=== PATIENT | female | born 1960 | race Caucasian/White ===

== ENCOUNTER → 2017-05-23 12:19 | Outpatient (CLI) | payer MEDICAID, SELFPAY ==
--- NOTE | 2017-05-23 12:22 | ADU_ITS ---
Reason For Study: Atherosclerosis Right Velocities Left Velocities Ext. Iliac Artery, dist = 138 cm./sec. Ext Iliac Artery, dist = 158 cm./sec. Common Femoral Artery, dist = 86 cm./sec. Common Femoral Artery, dist = 93 cm./sec. Supf Femoral Artery, prox = 75 cm./sec. Lt Prox SFA pre stenosis: 92cm/s, at stenosis: Supf Femoral Artery, mid = 101 cm./sec. 462cm/s, distal to stenosis: 90cm/s. Supf Femoral Artery, dist. = 57 cm./sec. Supf. Femoral Artery, mid = 58 cm./sec. Profunda Femoral Artery = 108 cm./sec. Supf. Femoral Artery, dist = 82 cm./sec. Popliteal Artery, prox. = 32 cm./sec. Profunda Femoral Artery = 186 cm./sec. Popliteal Artery, mid = 36 cm./sec. Popliteal Artery, proximal, = 62 cm./sec. Popliteal Artery, dist = 17 cm./sec. Popliteal Artery, mid = 69 cm./sec. Post. Tibial Artery, prox = 21 cm./sec. Popliteal Artery, distal = 69 cm./sec. Post. Tibial Artery, mid = 11 cm./sec. Post. Tibial Artery, prox = 33 cm./sec. Post. Tibial Artery, dist = 19 cm./sec. Post Tibial Artery, mid = 49 cm./sec. Peroneal Artery, prox = 12 cm./sec. Post Tibial Artery, dist. = 39 cm./sec. Peroneal Artery, mid = 7 cm./sec. Peroneal Artery, prox = 19 cm./sec. Peroneal Artery,dist = 10 cm./sec. Peroneal Artery, mid = 17 cm./sec. Ant. Tibial Artery, prox = 19 cm./sec. Peroneal Artery,dist. = 16 cm./sec. Ant. Tibial Artery, mid = 25 cm./sec. Ant.Tibial Artery, prox = 33 cm./sec. Ant. Tibial Artery, dist = 21 cm./sec. Ant Tibial Artery, mid = 29 cm./sec. Rt DPA: 17cm/s. Ant. Tibial Artery, distal = 33 cm./sec. Lt DPA: 26cm/s. Procedure Exam performed in department. Interpretation Summary 1. Right with no stenosis seen but monophasic flow and decreased psv below mid poplieat artery. 2. Left with severe stenosis in SFA but appears triphasic flow below and through anterior tibial. Ordering Physician: Juma Shannon Referring Physician: Tristan Denis Performed By: Monica Burk RDCS, RVT
--- NOTE | 2017-05-30 11:42 | LEAS ---
Arterial Study - Arterial Study Arterial Study: Patient: Araceli Roach Date of scan 05/23/[address] Juma Shannon Interpretation: Right lower extremity with pulsatile flow at the ankle slightly decreased waveform and but a maintained out through the digits duplex shows biphasic flow both vessels at the ankle with an ALLISON 0.65 the posterior tibial and 0.67 of the dorsalis pedis. With the digit brachial index 0.46 Left lower extremity with pulsatile flow noted at the ankle again with decreased waveform but waveform maintained out through the digit. Duplex again is biphasic flow at the ankle with an ALLISON 0.8 to the posterior tibial 0.70 the dorsalis pedis. And a digit brachial index is 0.56. Impression: 1. Right lower extremity with moderate arterial occlusive disease with an ALLISON 0.67. 2. Left lower extremity with mild arterial occlusive disease with an ALLISON 0.82 3. Bilateral small vessel disease with digit brachial index 0.46 and 0.56 respectively
== END ==
PROVIDERS: Family Provider Family Medicine; PCP Family Medicine; Visit Provider Surgery Vascular Surgery
DX: I70.213 Atherosclerosis of native arteries of extremities with intermittent claudication, bilateral legs (principal); E78.00 Pure hypercholesterolemia, unspecified; E11.9 Type 2 diabetes mellitus without complications
CPT/HCPCS: 93922; 93925

== ENCOUNTER → 2018-04-01 09:56 | Outpatient (CLI) | payer MEDICAID, SELFPAY ==
--- NOTE | 2018-04-01 10:02 | ART_ITS ---
Reason For Study: Bilateral leg pain Procedure A bilateral lower extremity continuous wave Doppler with analog waveform analysis,segmental pressures,and ankle brachial indexes without exercise. Left Segmental Pressures Left brachial= 111mmHg. Left thigh = 106mmHg. Left calf = 75mmHg. Left posterior tibial artery = 87mmHg. Left dorsalis pedis artery = 67mmHg. Left digit = 65 mmHg. The left dorsalis pedis waveforms are biphasic. The left posterior tibial artery waveforms are biphasic. Right Segmental Pressures Right brachial= 96mmHg. Right thigh = 144mmHg. Right calf = 89mmHg. Right posterior tibial artery = 86mmHg. Right dorsalis pedis artery = 82.mmHg. Right digit = 49 mmHg. The right dorsalis pedis waveforms are biphasic. The right posterior tibial artery waveforms are biphasic. Indices The right ankle brachial index by the dorsalis pedis is 0.74. The right ankle brachial index by the posterior tibial artery is 0.77. The right digital-brachial index is 0.44. The left ankle brachial index by the dorsalis pedis is 0.60. The left ankle brachial index by the posterior tibial artery is 0.78. The left digital-brachial index is 0.59. Interpretation Summary Biphasic waveforms are noted at ankle level bilaterally. Resting ankle-brachial indices appear moderately abnormal bilaterally. The right digital-brachial index is moderately diminished. The left digital-brachial index is mildly diminished. Pulse-volume recordings demonstrate diminished waveform amplitudes at ankle and digital levels bilaterally. The findings of this study are consistent with the presence of moderate arterial occlusive disease in the lower extremities bilaterally. Ordering Physician: Yobany Burr Referring Physician: Tristan Denis M.D. Performed By: Lisa Tejada RVT and Student
== END ==
PROVIDERS: Family Provider Family Medicine; PCP Family Medicine; Referring Provider Podiatrist; Visit Provider Podiatrist
DX: E11.9 Type 2 diabetes mellitus without complications (principal); I73.9 Peripheral vascular disease, unspecified; R09.89 Other specified symptoms and signs involving the circulatory and respiratory systems
CPT/HCPCS: 93923

== ENCOUNTER → 2018-04-10 13:50 | Outpatient (CLI) | payer MEDICAID, SELFPAY ==
--- NOTE | 2018-04-10 15:23 | NEURO ---
NCS and/or EMG Patient Report Ordering Doctor: Tristan Denis DATE OF SERVICE: 04/10/18 Araceli Roach is a 57-year-old female presents for electrodiagnostic testing of the upper limbs. She reports complaints of numbness and tingling in both hands. Electrodiagnostic findings: Right median motor nerve demonstrates prolonged distal latency with normal amplitude and adduction velocity. Left median motor nerve demonstrates prolonged distal latency with normal amplitude and conduction velocity. Normal ulnar motor response bilaterally normal median and ulnar F waves. Mildly prolonged right median sensory latency is noted. Needle EMG testing shows no evidence of denervation in any motor unit action potentials are normal amplitude and duration. Electrodiagnostic assessment: This is an abnormal study in the upper limbs 1. Electrodiagnostic findings demonstrate bilateral median mononeuropathy. This is consistent with a mild bilateral carpal tunnel syndrome. If there are any further questions please do not hesitate to contact me
== END ==
PROVIDERS: Family Provider Family Medicine; PCP Family Medicine; Referring Provider Family Medicine; Visit Provider Family Medicine
DX: G56.03 Carpal tunnel syndrome, bilateral upper limbs (principal)
CPT/HCPCS: 95886; 95913

== ENCOUNTER → 2018-05-03 08:49 | Outpatient (CLI) | payer MEDICAID, SELFPAY ==
--- NOTE | 2018-05-03 08:54 | AAVD_ITS ---
Reason For Study: Aorto-iliac atherosclerosis Aorta Measurements Aorta Doppler Measurements Proximal aorta measures1.7 x 1.7cm. in cross- Peak systolic flow velocities within the proximal sectional axis. aorta measure 109 cm/sec. Proximal aorta measures1.6cm. in longitudinal Peak systolic flow velocities within the mid aorta axis. measure 99 cm/sec. Mid aorta measures1.2 x 1.2cm. in cross-sectional Peak systolic flow velocities within the distal axis. aorta measure 369 cm/sec. Mid aorta measures1.2cm. in longitudinal axis. Distal aorta measures1.0 x 1.0cm. in cross- sectional axis. Distal aorta measures1.1cm. in longitudinal axis. Mobile plaque noted distal aorta. Left Iliac Artery Left iliac artery measures .63 cm. in the longitudinal axis. Left iliac artery measures .65 x .61 cm. in the cross-sectional axis. Peak systolic velocity in the left iliac artery measures 159 cm/sec. Right Iliac Artery Right iliac artery measures .63 cm. in the longitudinal axis. Right iliac artery measures .71 x .73 cm. in the cross-sectional axis. Peak systolic velocity in the right iliac artery measures 219 cm/sec. Procedure Aorta IVC Iliac vasculature or bypass grafts [id number]. Exam performed in department. Interpretation Summary 1. distal aorta wiht severe stenosis. Ordering Physician: Juma Shannon Referring Physician: Tristan Denis M.D. Performed By: Lisa Tejada RVT
== END ==
PROVIDERS: Family Provider Family Medicine; PCP Family Medicine; Referring Provider Surgery Vascular Surgery; Visit Provider Surgery Vascular Surgery
DX: I70.0 Atherosclerosis of aorta (principal); I77.1 Stricture of artery
CPT/HCPCS: 93978

== ENCOUNTER 2018-08-13 23:53 | Emergency (ER) | payer MEDICAID, SELFPAY ==
[2018-08-13 23:54] VITALS: BP 136/87; PULSE 70; RESP 18; TEMP 36.3; O2SAT 94; BMI 27.8
[2018-08-14] MEDS: Diphth,Pertuss(Acell),Tet Vac 0.5 ML Vial IM (00:08)
--- NOTE | 2018-08-14 00:22 | ED.VISSUMM ---
- ER Visit Summary Date of Service: 08/14/18 Chief Complaint: Left index finger laceration History of Present Illness: The patient is a 57 F presents to the emergency department with laceration to her left index finger. The patient was in his normal state of health. She states that she was cutting the plastic ring around a Pepsi bottle. The knife slipped and she incised her left index finger. She had immediate pain and bleeding. The patient is on Plavix. She is unsure of her last tetanus. The patient is right-hand dominant. She denies other injury. She is otherwise been in her normal state of health. Physical Examination: Exam is relatively unremarkable. Patient does have a 2 cm full-thickness laceration palmar aspect of the mid phalanges of the left second finger. She is able to flex against opposition. Point discrimination is preserved. Cap refill is less than 2 seconds. Test Results: [] Emergency Department Course and Treatment: The patient's tetanus was updated. The wound was anesthetized. Turn[place]ot was placed. It was explored in a bloodless field. There is no evidence of tenderness laceration. The wound was closed with 6 simple interrupted suture. Patient tolerated this without issue. She was counseled on wound care and reasons to return. She will follow-up in 10 days for suture removal. Treatment Plan: [] Disposition: Discharge Impression: 1. 2 cm left second finger laceration with repair This note was generated with [employer] dictation software. It may contain incorrect words, spelling, and punctuation that were not noted in review of the chart prior to signing ED Disposition - Plan for ED Patient: Instructions: ED Laceration Hand Referrals: Tristan Denis MD [Primary Care Provider] - 10 Day for suture removal
== END 2018-08-14 00:42 | disposition home or self-care (01) ==
LOC: ED 08-14 00:40
PROVIDERS: Emergency Provider Emergency Medicine; Family Provider Family Medicine; PCP Family Medicine
DX: S61.211A Laceration without foreign body of left index finger without damage to nail, initial encounter (principal); W26.0XXA Contact with knife, initial encounter; Y93.9 Activity, unspecified; Y92.9 Unspecified place or not applicable; I25.10 Atherosclerotic heart disease of native coronary artery without angina pectoris; E11.9 Type 2 diabetes mellitus without complications; I10 Essential (primary) hypertension; E78.00 Pure hypercholesterolemia, unspecified; Z79.02 Long term (current) use of antithrombotics/antiplatelets; Z79.84 Long term (current) use of oral hypoglycemic drugs; Z79.4 Long term (current) use of insulin; Z79.899 Other long term (current) drug therapy; Z72.0 Tobacco use
CPT/HCPCS: 12001; 90471; 90715; 99283

== ENCOUNTER → 2018-11-28 10:27 | Outpatient (CLI) | payer OTHER, MEDICAID, SELFPAY ==
[2018-11-28 12:24] LABS: Anion Gap 5 (5-15); BUN 37 mg/dL (7-18); BUN/Creat Ratio 31.1 RATIO (10-20); Calcium,Total 8.7 mg/dL (8.5-10.1); Chloride 107 mmol/L (98-107); Cholesterol 238 mg/dL (200); Creatinine, Serum 1.19 mg/dL (0.55-1.02); EST Glomerular Filtration Rate 49 mL/min (>60); Est Glom Filt Rate - Afr Amer 60 mL/min (>60); Glucose 249 mg/dL (74-106); High Density Lipoprotein 53 mg/dL; Potassium 5.2 mmol/L (3.5-5.1); Sodium Level 140 mmol/L (136-145); Triglycerides 182 mg/dL; Very Low Density Lipoprotein 36 mg/dL (5-40)
== END ==
PROVIDERS: Family Provider Family Medicine; PCP Family Medicine; Referring Provider Family Medicine; Visit Provider Family Medicine
DX: E11.9 Type 2 diabetes mellitus without complications (principal); E78.00 Pure hypercholesterolemia, unspecified
CPT/HCPCS: 36415; 80048; 80061; 83036

== ENCOUNTER 2019-03-07 22:49 | Inpatient (IN) | payer OTHER, SELFPAY ==
--- NOTE | 2019-03-07 00:30 | RAD_ITS ---
HISTORY: COUGH, CONFUSION EXAM: XR Chest 2 Views: COMPARISON: None FINDINGS: # of images incl. paperwork: 2 Lungs are clear. Heart is not enlarged. No acute osseous pathology perceived. Pulmonary vascularity is distinct. No effusions. RAD/Chest PA and Lateral IMPRESSION: Normal. at 0127 Reported and signed by: Abraham Woods MD Electronically Signed: Abraham Woods MD at 1:26 EST Tel , Service support ,
[2019-03-07 22:50] VITALS: BP 133/69; PULSE 64; RESP 16; TEMP 36.9; O2SAT 96; BMI 28.3
--- NOTE | 2019-03-07 23:34 | EKG12_ITS ---
Test Reason : Blood Pressure : / mmHG Vent. Rate : 078 BPM Atrial Rate : 078 BPM P-R Int : 136 ms QRS Dur : 110 ms QT Int : 440 ms P-R-T Axes : 059 050 113 degrees QTc Int : 501 ms AGE AND GENDER SPECIFIC ECG ANALYSIS Normal sinus rhythm Biatrial enlargement Incomplete left bundle branch block ST elevation consider inferior injury or acute infarct Possible lateral ischemia Confirmed by WALTER MENDEZ ([id number]), news assignment editor ILEANA FLORES ([id number]) on 03/11/2019 2:36:30 PM Referred By: LUIS Confirmed By:WALTER MENDEZ
--- NOTE | 2019-03-07 23:37 | ED.DCSUM_ITS ---
History of Present Illness Chief Complaint: Confusion Informant: Patient, Family Onset: Days - 2 Context: - - unk onset Timing: Intermittent Quality: trouble speaking Current Severity: Moderate Maximum Severity: Moderate Worsened by: nothing in particular Relieved by: nothing in particular Associated Symptoms: mild mid-frontal headache Narrative: Family brings patient in for trouble speaking and acting unusual. It is mostly saying unusual things that do not make sense and seems intermittent. Patient lives alone. Daughter states she spoke with her at 5:00 today and she seemed to be fine but tonight she is not. She slept all day yesterday. Patient states her speech has not been right since 2 days ago. Family was with her 3 days ago and they states she was fine and at baseline then. No history of stroke. Patient denies having any weakness or numbness anywhere. She tries to tell me something about her left leg, she is having some pain in it, she points to her thigh, but she has trouble describing it to me and something about having a doctor look at it. I think she is trying to indicate that this is not a new problem but she is having trouble communicating. She is a diabetic and does not remember the last time she checked her blood sugar. - Past Medical History (1) Hyperlipidemia Status: Chronic (2) Type 2 diabetes mellitus Status: Chronic (3) HTN (hypertension) Status: Chronic Past Medical History - Allergies and Home Meds Allergies/Adverse Reactions: Allergies No Known Allergies Allergy (Verified 08/13/18 23:55) Primary Care Physician: Tristan Denis MD [Primary Care Provider] - Smoking Status: Former smoker Review of Systems General: Denies: Chills, Fever, Sweats Eyes: Denies: Visual changes - bilaterally, Diplopia ENT: Denies: Rhinorrhea, Sore throat Cardiovascular: Denies: Chest pain, Palpitations Respiratory: Denies: Dyspnea, Cough, Dyspnea on exertion Gastrointestinal: Denies: Abdominal pain, Nausea, Vomiting, Diarrhea, Melena, Hematochezia Genitourinary: Denies: Dysuria, Hematuria, Frequency Musculoskeletal: Denies: Back pain, Swelling, Extremity Pain Skin: Denies: Rash, Abscess, Wounds Neurological: Reports: Headache, - - confusion. speech problems.. Denies: Weakness, Numbness Physical Exam Vital Signs/Narrative: Vital Signs Temp Pulse Resp BP Pulse Ox 03/07/19 22:50 98.4 F 64 16 133/69 H 96 General: Well nourished, Well developed, No Acute Distress Head: Normocephalic, Atraumatic Eyes: Perrl, EOMI ENT: Moist mucous membranes, No rhinorrhea Neck: Supple, Nontender, No lymphadenopathy, No JVD Cardiovascular: Regular rate, Regular rhythm, No murmurs Respiratory: No distress, CTA bilaterally, Chest nontender Abdomen: Soft, Nontender, Nondistended, Normal bowel sounds Back: Nontender, Normal Inspection. Negative for: CVA tenderness Extremities: Nontender, No edema. Negative for: Calf Tenderness Skin: Normal color, No rash, No Trauma Neurological: Alert, Oriented x3, Cranial nerves II-XII grossly intact, Normal Strength, Normal Sensation, Normal DTR, - - Patient has no dysarthria but seemingly mild a aphasia at times. Difficult to evaluate if true aphasia or disorientation; for instance when asked the month, she is correct that it is February. She states it was just recently Mike, and then says something about having a good New Year's Shelly which has yet to arrive. When asked the year she states 2019 1998. Psychological: Normal affect, Normal Mood Diagnostic/Tx/Re-eval Impressions Chest X-Ray 03/07/19 00:30 IMPRESSION: Normal. at 0127 Reported and signed by: Abraham Woods MD Electronically Signed: Abraham Woods MD at 1:26 EST Tel , Service support , Brain CT 03/08/19 23:33 IMPRESSION: No acute intracranial abnormality. Chronic changes as above. ASPECT 10. Individualized dose optimization techniques were used for this CT. at 0116 Reported and signed by: Abraham Woods MD Electronically Signed: Abraham Woods MD at 1:15 EST Tel , Service support , 03/08/19 23:33 Brain/Head without Contrast [CT] Stat Laboratory Results 03/07/19 03/07/19 03/07/19 23:43 23:45 23:45 WBC 8.3 RBC 4.52 Hgb 13.5 Hct 40.6 MCV 89.8 MCH 29.9 MCHC 33.3 RDW Std Deviation 42.0 RDW Coeff of Jessica 12.8 Plt Count 221 MPV 12.2 H Immature Gran % (Auto) 0.800 Neut % (Auto) 66.4 Lymph % (Auto) 22.6 Elliott % (Auto) 7.4 Eos % (Auto) 2.3 Baso % (Auto) 0.5 Absolute Neuts (auto) 5.5 Absolute Lymphs (auto) 1.87 Nucleated RBC % 0 Sodium 129 L Potassium 4.8 Chloride 91 L Carbon Dioxide 29.0 Anion Gap 9 BUN 50 H Creatinine 1.52 H Estim Creat Clear Calc 32.97 Est GFR (MDRD) Af Amer 45 L Est GFR (MDRD) Non-Af 37 L BUN/Creatinine Ratio 32.9 H Glucose 580 H* Calcium 8.9 Total Bilirubin 0.30 AST 12 L ALT 29 Alkaline Phosphatase 140 H Ammonia Troponin I < 0.015 Total Protein 7.5 Albumin 3.4 Globulin 4.1 Albumin/Globulin Ratio 0.8 L Urine Color Urine Clarity Urine pH Ur Specific [place] Urine Protein Urine Glucose (UA) Urine Ketones Urine Occult Blood Urine Nitrite Urine Bilirubin Urine Urobilinogen Ur Leukocyte Esterase Urine RBC Urine WBC Ur Squamous Epith Cells Urine Bacteria Urine Mucus Urine Opiates Screen Urine Methadone Screen Ur Barbiturates Screen Ur Phencyclidine Scrn Ur Amphetamines Screen U Methamphetamin-MDMA U Benzodiazepines Scrn Urine Cocaine Screen U Cannabinoids Screen Ur Drug Screen Comment Ethyl Alcohol POC Glucose > 500 H* 03/07/19 03/07/19 03/08/19 23:45 23:45 01:00 WBC RBC Hgb Hct MCV MCH MCHC RDW Std Deviation RDW Coeff of Jessica Plt Count MPV Immature Gran % (Auto) Neut % (Auto) Lymph % (Auto) Elliott % (Auto) Eos % (Auto) Baso % (Auto) Absolute Neuts (auto) Absolute Lymphs (auto) Nucleated RBC % Sodium Potassium Chloride Carbon Dioxide Anion Gap BUN Creatinine Estim Creat Clear Calc Est GFR (MDRD) Af Amer Est GFR (MDRD) Non-Af BUN/Creatinine Ratio Glucose Calcium Total Bilirubin AST ALT Alkaline Phosphatase Ammonia 12.0 Troponin I Total Protein Albumin Globulin Albumin/Globulin Ratio Urine Color Straw Urine Clarity Sl. Cloudy Urine pH 6.0 Ur Specific [place] 1.010 Urine Protein Negative Urine Glucose (UA) 1000 H Urine Ketones Negative Urine Occult Blood Negative Urine Nitrite Negative Urine Bilirubin Negative Urine Urobilinogen Normal Ur Leukocyte Esterase Negative Urine RBC 0 SEEN Urine WBC 0-5 SEEN Ur Squamous Epith Cells 0-5 SEEN Urine Bacteria RARE Urine Mucus 0 SEEN Urine Opiates Screen Urine Methadone Screen Ur Barbiturates Screen Ur Phencyclidine Scrn Ur Amphetamines Screen U Methamphetamin-MDMA U Benzodiazepines Scrn Urine Cocaine Screen U Cannabinoids Screen Ur Drug Screen Comment Ethyl Alcohol < 3.0 POC Glucose 03/08/19 03/08/19 01:00 01:08 WBC RBC Hgb Hct MCV MCH MCHC RDW Std Deviation RDW Coeff of Jessica Plt Count MPV Immature Gran % (Auto) Neut % (Auto) Lymph % (Auto) Elliott % (Auto) Eos % (Auto) Baso % (Auto) Absolute Neuts (auto) Absolute Lymphs (auto) Nucleated RBC % Sodium Potassium Chloride Carbon Dioxide Anion Gap BUN Creatinine Estim Creat Clear Calc Est GFR (MDRD) Af Amer Est GFR (MDRD) Non-Af BUN/Creatinine Ratio Glucose Calcium Total Bilirubin AST ALT Alkaline Phosphatase Ammonia Troponin I Total Protein Albumin Globulin Albumin/Globulin Ratio Urine Color Urine Clarity Urine pH Ur Specific [place] Urine Protein Urine Glucose (UA) Urine Ketones Urine Occult Blood Urine Nitrite Urine Bilirubin Urine Urobilinogen Ur Leukocyte Esterase Urine RBC Urine WBC Ur Squamous Epith Cells Urine Bacteria Urine Mucus Urine Opiates Screen NEGATIVE Urine Methadone Screen NEGATIVE Ur Barbiturates Screen NEGATIVE Ur Phencyclidine Scrn NEGATIVE Ur Amphetamines Screen NEGATIVE U Methamphetamin-MDMA NEGATIVE U Benzodiazepines Scrn NEGATIVE Urine Cocaine Screen NEGATIVE U Cannabinoids Screen NEGATIVE Ur Drug Screen Comment Ethyl Alcohol POC Glucose 434 H - Rhythm Strip Rhythm Strip: Sinus Rhythm Rate: 78 Ectopy: None - EKG Initial EKG Interpretation: Sinus Rhythm, - - Incomplete left bundle branch block. ST/J- point elevation in lead III only. Very possibly less than 1 mm in aVF, but none in lead II. There are T wave inversions without significant ST depression laterally in leads I and aVL. Very slight [address]/J-point elevations in V1-V2. Prior: No Prior - Medical Decision Making Her EKG is concerning, but I suspect the J-point elevations and the ST segments adjoining them are elevated in relation to her incomplete left bundle branch block. She does not have any thoracic symptoms, and I do not think this is indicative of a STEMI or need for any acute intervention. Furthermore, her troponin returned negative. Her fingerstick blood sugar is over 500. It returned at 580 on the blood work. She was given IV fluids and some insulin. Blood sugar trending down around 400 on recheck, the rest of the work-up is unremarkable except for dehydration and glycosuria, likely due to hyperglycemia that has been present for over a day or 2. The patient still is having speech and memory issues. The CT head is negative, if she was having any type of relatively acute ischemic process there, it may not show on CT. Therefore plan is to admit her to the hospital for further treatment and evaluation, at least until her symptoms resolve. ED Disposition - Plan for ED Patient: Disposition: Acute Care Hospital [facility] Diagnosis: Hyperglycemia due to type 2 diabetes mellitus, Altered mental status, ADAN (acute kidney injury), Abnormal EKG Referrals: Tristan Denis MD [Primary Care Provider] -
[2019-03-07 23:51] LABS: Bedside Glucose > 500 mg/dL (70-110)
[2019-03-07 23:53] LABS: Absolute Lymphocyte Count 1.87 X10^3/uL (0.83-4.51); Absolute Neutrophil Count 5.5 X10^3/uL (2.0-7.7); Basophil# 0.04 X10^3/uL; Basophil% 0.5 % (0-1); Eosinophil# 0.19 X10^3/uL; Eosinophils% 2.3 % (0-5); Hematocrit 40.6 % (37-47); Hemoglobin 13.5 g/dL (12.0-15.0); Lymphocyte # 1.87 X10^3/ul (4.0); Lymphocyte % 22.6 % (19-41); Mean Corp Hgb Conc 33.3 g/dL (32-36); Mean Corpuscular Hgb 29.9 pg (27.0-32.0); Mean Corpuscular Volume 89.8 fL (81-99); Mean Platelet Vol. 12.2 fl (6.2-12.0); Monocyte# 0.61 X10^3/uL; Monocyte% 7.4 % (0-10); NRBC Flagged by Analyzer 0 % (0-5); Neutrophil # 5.49 X10^3/uL (2.7-7.7); Neutrophil % 66.4 % (47-70); Platelet Count 221 K/mm3 (150-450); RBC Distribution Width CV 12.8 % (11.6-14.6); Red Blood Count 4.52 M/mm3 (4.2-5.4); White Blood Count 8.3 K/mm3 (4.4-11.0)
[2019-03-08] VITALS (14 sets, daily range): BP systolic 100–144; BP diastolic 55–80; PULSE 55–89; RESP 12–20; TEMP 36.6–36.8; O2SAT 91–99; BMI 28.0
[2019-03-08] MEDS: Insulin Lispro 100 UNIT/ML INSULN.PEN 12 UNIT SC (00:08)
[2019-03-08] MEDS: 0.9% Normal Saline 1,000 ML 999 ML IV ×2 (00:08→02:36)
[2019-03-08 00:14] LABS: ALB/GLOB Ratio 0.8 RATIO (0.9-2.4); AST(SGOT) 12 U/L (15-37); Alanine Aminotransfer ALT/SGPT 29 U/L (13-56); Albumin, Serum 3.4 g/dL (3.2-5.0); Alkaline Phosphatase 140 U/L (45-117); Anion Gap 9 (5-15); BUN 50 mg/dL (7-18); BUN/Creat Ratio 32.9 RATIO (10-20); Calcium,Total 8.9 mg/dL (8.5-10.1); Chloride 91 mmol/L (98-107); Creatinine, Serum 1.52 mg/dL (0.55-1.02); EST Glomerular Filtration Rate 37 mL/min (>60); Est Glom Filt Rate - Afr Amer 45 mL/min (>60); Estimated Creatinine Clearance 32.97 ml/min; Globulin 4.1 g/dL (2.2-4.2); Glucose 580 mg/dL (74-106); Potassium 4.8 mmol/L (3.5-5.1); Protein, Total 7.5 g/dL (6.4-8.2); Sodium Level 129 mmol/L (136-145)
--- NOTE | 2019-03-08 00:15 | ED.RN ---
LAB CALLED WITH SERUM BLOOD SUGAR 580.
[2019-03-08 00:21] LABS: Alcohol, Blood (Medical)-Serum < 3.0 mg/dL
[2019-03-08 01:05] LABS: Color, Urine Straw (Yellow); Glucose, Dipstick 1000 mg/dl (Normal); Ketone-Dipstick Negative (Negative); Leukocyte Esterase-Dipstick Negative /ul (Negative); Mucous, Urine 0 SEEN /hpf (<or=2+); Nitrite-Dipstick Negative (Negative); Occult Blood-Urine Negative /ul (Negative); Protein-Dipstick Negative (Negative); Red Blood Cells-Urine 0 SEEN /hpf (0-5); Urine Bilirubin Dipstick Negative (Negative); Urine Clarity Sl. Cloudy (Clear); Urine Urobilinogen Normal (Normal)
[2019-03-08 01:12] LABS: Bacteria RARE /hpf (None Seen); Squamous Epithelial Cells - UA 0-5 SEEN /hpf (5-10); White Blood Cells 0-5 SEEN /hpf (0-5)
[2019-03-08 01:16] LABS: Bedside Glucose 434 mg/dL (70-110)
[2019-03-08 01:27] LABS: Amphetamine Urine VISTA NEGATIVE (<1000 ng/mL); Barbiturate Urine VISTA NEGATIVE (< 200 ng/mL); Benzodiazepine Urine VISTA NEGATIVE (< 200 ng/mL); Cocaine Urine VISTA NEGATIVE (< 300 ng/mL); Ecstacy Urine VISTA NEGATIVE (< 500 ng/mL); Methadone Urine VISTA NEGATIVE (< 300 ng/mL); PCP Urine VISTA NEGATIVE (< 25 ng/mL); THC Urine VISTA NEGATIVE (< 50 ng/mL); Vista UDS pH Range 6
--- NOTE | 2019-03-08 02:47 | HP.PCM_ITS ---
Problem List (1) Dysarthria Status: Acute (2) Peripheral vascular disease Status: Chronic (3) Hyperlipidemia Status: Chronic (4) Type 2 diabetes mellitus Status: Chronic (5) HTN (hypertension) Status: Chronic (6) Hyperglycemia due to type 2 diabetes mellitus Status: Acute (7) Altered mental status Status: Acute (8) ADAN (acute kidney injury) Status: Acute (9) Abnormal EKG Status: Acute History of Present Illness Date of Admission: 03/08/19 Chief Complaint: Confusion, slurred speech. The patient is a 58 year old F female patient with past medical history as mentioned above presented to the emergency room because of confusion and slurred speech. When I interviewed the patient, she was alert and oriented x3. Tawnya burnett's family brought her because of trouble speaking and acting unusual. Patient mentioned that she has been not feeling well over the last couple of days, slept all day yesterday and mentioned that her speech has not been right for the last couple of days. Her son was at the bedside and he thinks that now, she is back to her normal speech. She denied blurred vision, facial numbness or tingling. She denied arm or leg weakness. She denied chest pain or shortness of breath. She denied dizziness or lightheadedness. She history of type 2 diabetes mellitus which is apparently uncontrolled, hemoglobin A1c was 11% on November,. Patient admitted that sometimes she does not take her insulin and she has been noncompliant. She had a history of hypertension which seemed to be under control with lisinopril. She will history of peripheral vascular disease, underwent procedure on her right lower extremity by Dr. Shannon which patient is not sure about but was not a stent and she has been on Plavix. In the emergency department, her vital signs were stable. When I saw the patient, her NIH stroke scale was 0. She was alert and oriented x3. Routine blood work was remarkable for sodium of 129, BUN of 50, creatinine is 1.52. Blood glucose was 580. There was no evidence of diabetic ketoacidosis. LFT was unremarkable. Ammonia level was normal. EKG revealed normal sinus rhythm, inverted T wave in lead I, minimal ST elevation in lead III which is only in 1 week, inverted T wave in lead aVL, incomplete LBBB, no previous EKG to compare. Chest x-ray showed no acute findings. CT scan brain showed no acute infarct or hemorrhage. Urinalysis showed no evidence of infection. Urine drug screen was negative and blood alcohol level was less than 3. She is being admitted for slurred speech/dysarthria with transient confusion, hyperglycemia with uncontrolled type 2 diabetes mellitus, acute kidney injury and abnormal EKG. Past Medical History Past Medical History (Chronic Problems): Chronic Problems Peripheral vascular disease (Chronic) Hyperlipidemia (Chronic) Type 2 diabetes mellitus (Chronic) HTN (hypertension) (Chronic) Allergies No Known Allergies Allergy (Verified 08/13/18 23:55) Home Medications: Ambulatory Orders Medication Instructions Recorded Clopidogrel Bisulfate [Clopidogrel] 75 mg PO DAILY 08/14/18 Dulaglutide [Trulicity] 1.5 mg IM QWEEK 08/14/18 Insulin Glargine,Hum.rec.anlog 50 unit SC BID 08/14/18 [Basaglar Kwikpen U-100] Lisinopril [Zestril] 40 mg PO DAILY 08/14/18 Metformin HCl 1,000 mg PO BID 08/14/18 Simvastatin 40 mg PO QHS 08/14/18 Surgical History: no surgical history Psychiatric History: No pertinent psych hx Lives: Alone Smoking Status: Former smoker Alcohol: None Drugs: None - *Family History Maternal History Items: No pertinent history Paternal History Items: No pertinent history Review of Systems Constitutional: Denies: Anorexia, Chills, Fever, Weakness Eyes: Denies: Blurred vision, Double vision, Drainage, Redness HEENT: Denies: Difficulty Hearing, Ear Pain, Eye Pain, Nasal Congestion, Sore Throat Cardiovascular: Denies: Chest Pain, Chest Pressure, Chest Tightness, Heaviness, Light Headedness, Palpitations, Syncope Respiratory: Denies: Cough, Pleuritic Pain, Shortness of Breath, Sputum production, Wheezing Gastrointestinal: Denies: Abdominal Pain, Constipation, Diarrhea, Nausea, Vomiting Genitourinary: Denies: Dysuria, Frequency, Hematuria Musculoskeletal: Denies: Arm Pain, Back Pain, Foot Pain Skin: Denies: Dryness, Rash Neurological: Reports: Change in Speech, Slurred speech, Confusion. Denies: Balance problems, Blurred vision, Double vision, Focal weakness, Headaches, Numbness, Tingling Psychiatric: Denies: Anxiety, Depression Endocrine: Denies: Change in Body Habitus, Polydipsia, Polyuria VTE Information - Inpt Only VTE Present on Admission: No VTE Mechan Device Prophylaxis: None VTE Pharm Prophylaxis ordered?: Yes Patient Problems: Active and Suspected Problems Dysarthria (Acute) Hyperglycemia due to type 2 diabetes mellitus (Acute) Altered mental status (Acute) ADAN (acute kidney injury) (Acute) Abnormal EKG (Acute) - Physical Exam Vitals/I&O's: Vital Signs Temp Pulse Resp BP Pulse Ox 98.4 F 85 16 137/64 H 96 03/07/19 22:50 03/08/19 01:04 03/08/19 01:04 03/08/19 01:04 03/08/19 01:04 Oxygen Delivery Method Room Air Weight: 159 lb 13.362 oz Body Mass Index (BMI) 28.3 Finger Stick Blood Glucose 434 Intake and Output for Last 24 Hours 03/06/19 03/07/19 03/08/19 23:59 23:59 23:59 Intake Total 1000 / 1000 Balance 1000 / 1000 General: Alert, Oriented x3, Cooperative, No apparent distress HEENT: Atraumatic, PERRLA, EOMI, Normocephalic Oral: Moist Mucosa, No Gingival or Mucosal Lesions/ Ulcerations Neck: Supple, No JVD, Negative Carotid Bruits, Trachea Midline, Thyroid Normal Size and Texture Lungs: Clear to auscultation, Normal air movement, No rhonchi, No wheeze, No rales Cardiovascular: Regular rate, Regular Rhythm, Normal S1, Normal S2, No murmurs, PMI Normal Abdomen: Bowel Sounds Present, Soft, Non Tender, Non-Distended, No Hepato- splenomegaly Extremities: No clubbing, No cyanosis, No edema Skin: No rashes, No breakdown Musculoskeletal: No Tenderness to Palpation of Joints or Extremities Lymphatic: No Cervical, Supraclavicular, or Inguinal Adenopathy Neurological: Cranial nerves II-XII grossly intact, Motor Exam 5/5 strength throughout Psych/Mental Status: Normal Affect, Appropriate, Alert and oriented to time, place, person, mood and affect Laboratory Results 03/07/19 23:43: POC Glucose > 500 H* 03/07/19 23:45: WBC 8.3, RBC 4.52, Hgb 13.5, Hct 40.6, MCV 89.8, MCH 29.9, MCHC 33.3, RDW Std Deviation 42.0, RDW Coeff of Jessica 12.8, Plt Count 221, MPV 12.2 H, Immature Gran % (Auto) 0.800, Neut % (Auto) 66.4, Lymph % (Auto) 22.6, Dane % (Auto) 7.4, Eos % (Auto) 2.3, Baso % (Auto) 0.5, Absolute Neuts (auto) 5.5, Absolute Lymphs (auto) 1.87, Nucleated RBC % 0 03/07/19 23:45: Sodium 129 L, Potassium 4.8, Chloride 91 L, Carbon Dioxide 29.0, Anion Gap 9, BUN 50 H, Creatinine 1.52 H, Estim Creat Clear Calc 32.97, Est GFR (MDRD) Af Amer 45 L, Est GFR (MDRD) Non-Af 37 L, BUN/Creatinine Ratio 32.9 H, Glucose 580 H*, Calcium 8.9, Total Bilirubin 0.30, AST 12 L, ALT 29, Alkaline Phosphatase 140 H, Troponin I < 0.015, Total Protein 7.5, Albumin 3.4, Globulin 4.1, Albumin/Globulin Ratio 0.8 L 03/07/19 23:45: Ethyl Alcohol < 3.0 03/07/19 23:45: Ammonia 12.0 03/08/19 01:00: Urine Color Straw, Urine Clarity Sl. Cloudy, Urine pH 6.0, Ur Specific Perrin 1.010, Urine Protein Negative, Urine Glucose (UA) 1000 H, Urine Ketones Negative, Urine Occult Blood Negative, Urine Nitrite Negative, Urine Bilirubin Negative, Urine Urobilinogen Normal, Ur Leukocyte Esterase Negative, Urine RBC 0 SEEN, Urine WBC 0-5 SEEN, Ur Squamous Epith Cells 0-5 SEEN, Urine Bacteria RARE, Urine Mucus 0 SEEN 03/08/19 01:00: Urine Opiates Screen NEGATIVE, Urine Methadone Screen NEGATIVE, Ur Barbiturates Screen NEGATIVE, Ur Phencyclidine Scrn NEGATIVE, Ur Amphetamines Screen NEGATIVE, U Methamphetamin-MDMA NEGATIVE, U Benzodiazepines Scrn NEGATIVE, Urine Cocaine Screen NEGATIVE, U Cannabinoids Screen NEGATIVE, Ur Drug Screen Comment 03/08/19 01:08: POC Glucose 434 H Clinical Impression(s) from Imaging Studies Chest X-Ray 03/07/19 00:30 IMPRESSION: Normal. at 0127 Reported and signed by: Abraham Woods MD Electronically Signed: Abraham Woods MD at 1:26 EST Tel , Service support , Brain CT 03/08/19 23:33 IMPRESSION: No acute intracranial abnormality. Chronic changes as above. ASPECT 10. Individualized dose optimization techniques were used for this CT. at 0116 Reported and signed by: Abraham Woods MD Electronically Signed: Abraham Woods MD at 1:15 EST Tel , Service support , Current Medications Sodium Chloride () 1,000 mls @ 999 mls/hr IV .Q1H1M ONE Stop: 03/08/19 03:17 Last Admin: 03/08/19 02:36 Dose: 999 mls/hr Documented by: Assessment/Plan All Active Problems Dysarthria (Acute) Hyperglycemia due to type 2 diabetes mellitus (Acute) Altered mental status (Acute) ADAN (acute kidney injury) (Acute) Abnormal EKG (Acute) This is a 58 years old female patient presented to the emergency room because of slurred speech and confusion, found to have hypoglycemia with blood sugar of 580 mg/dL without evidence of DKA, acute kidney injury, hyponatremia as well as abnormal EKG. #1 slurred speech/dysarthria/transient confusion: At this time, symptoms improved. Hyperglycemia can cause very dry mouth which may cause difficulty articulating her tongue. It has associated confusion. CT scan brain showed no acute findings. No focal deficit on physical exam. Plan: Admit to PCU, cardiac monitoring, NIH stroke scale, continue Plavix and statins, MRI brain without contrast, IV fluids, Tylenol PRN, PT OT evaluation and treatment. If the MRI came back positive for stroke, we will need to do full stroke work-up. #2 acute kidney injury/hyponatremia: Secondary to above. Sodium is 129 likely because of pseudohyponatremia secondary to hyperglycemia. Corrected sodium for glucose is 137. Plan: IV fluids, input output chart, repeat BMP tomorrow morning. #3 hyperglycemia/uncontrolled type 2 diabetes mellitus: Patient is noncompliant, hemoglobin A1c was 11% on November,. She has been missing insulin doses. Admission glucose was 580, received 12 units of insulin in the ED. Sugar came down to 434. No evidence of DKA. Plan: ADA diet, Accu-Cheks every 4 hours, IV fluids, insulin sliding scale, continue Basaglar insulin twice daily, hold metformin and Trulicity. #4 abnormal EKG: She denied any chest pain or shortness of breath. EKG revealed normal sinus rhythm, inverted T waves in leads I and aVL, minimal ST elevation in lead III, incomplete LBBB. No prior history of CAD. Troponin is negative. Plan: Cardiac monitoring, serial cardiac enzymes, repeat EKG tomorrow morning, 2D echocardiogram, obtain old EKG from PCPs office. #5 hypertension: Blood pressure stable, continue lisinopril. #6 peripheral vascular disease: Status post intervention, not clear what type of intervention, has been following up with Dr. Shannon, plan to continue Plavix. #7 hyperlipidemia: Continue statins. #8 DVT prophylaxis: Subcu heparin. This note was generated with [employer] dictation software. It may contain incorrect words, spelling, and punctuation that were not noted in checking the note before signing. Code Visit Inpatient E&M: 84889 Init Hosp L3
--- NOTE | 2019-03-08 02:52 | MRI_ITS ---
We are attempting to reach an attending provider to discuss findings. An addendum with communication details will be sent when the communication is complete. STUDY: MRI BRAIN WITHOUT CONTRAST REASON FOR EXAM: Female, 58 years old. dysarthria, slurred speech, transient confusion TECHNIQUE: Standardized multiplanar fat and water weighted pulse sequences were obtained. COMPARISON: CT of the brain March 08, 2019 FINDINGS: Mild atrophy and moderate periventricular white matter ischemic changes.. There are multiple tiny foci of restricted diffusion in the left frontal and parietal lobes in distribution of middle cerebral artery consistent with acute ischemic changes. Chronic ischemic changes in the olivia Normal bilateral basal ganglia. Normal thalami. There is no extra-axial fluid accumulation. Normal flow voids within the major intracranial circulation suggesting patency by spin echo criteria. Empty sella sella deformity. Normal, infundibular stalk, optic chiasm and hypothalamus. Normal tectal plate and pineal gland. Normal midbrain, and medulla. Normal cerebellum. Normal basal cisterns. Normal bilateral temporal bones. Normal bilateral internal auditory canals. Post surgical changes of the orbits.. There is mild mucosal thickening of the maxillary ethmoid and sphenoid sinuses.. Normal calvarium and skull base. Normal visualized soft tissue structures. Normal visualized upper cervical spine. MRI/Brain without Contrast IMPRESSION: Moderate periventricular white matter ischemic changes. Tiny foci of acute ischemic changes in the left frontal and parietal lobes. Chronic ischemic changes in the olivia Electronically Signed: Maldonado Enciso MD at 16:35 EST , Service support ,
--- NOTE | 2019-03-08 02:52 | ECHOD_ITS ---
Reason For Study: Abn. EKG Procedure This was a 2D Doppler, Color Flow transthoracic echocardiogram. Exam performed portable in patient room. Left Ventricle Mild concentric left ventricular hypertrophy. Moderately dilated left ventricle. The estimated ejection fraction is 30 %. Septal motion consistent with IVCD. Stage 1 diastolic dysfunction. There is moderate to severe global hypokinesis of the left ventricle. Infero-Basal: Akinetic. Right Ventricle Normal size and thickness. Normal systolic function. Atria Normal left atrium. Normal right atrium. Normal atrial septum. Mitral Valve The mitral valve is structurally normal. No prolapse or stenosis seen. Trivial mitral valve insufficiency. Tricuspid Valve Normal tricuspid valve. Trivial tricuspid valve insufficiency. Right ventricular systolic pressure estimated to be 27 mmHg. Aortic Valve Normal aortic valve. Trisinus/trileaflet aortic valve. Pulmonic Valve Normal pulmonic valve. Great Vessels Normal aortic root. Normal arch. Normal inferior vena cava. Inferior vena cava collapse with sniff. Pericardium/Pleural No pericardial effusion. MMode/2D Measurements & Calculations LVIDd: 5.7 cm IVSd: 1.8 cm Ao root diam: 2.9 cm LVIDs: 4.9 cm LVPWd: 0.84 cm RVDd: 3.0 cm FS: 14.6 % LAV(MOD-bp): 40.6 ml LA A4 area: 16.0 cm2 LA dimension(2D): 3.9 cm LAV(MOD-bp) Indexed: 23.2 ml/m2 LAV(MOD-sp2): 35.3 ml LAV(MOD-sp4): 33.0 ml RA A4 area: 12.2 cm2 Doppler Measurements & Calculations MV E max michael: 67.6 cm/sec Lat Peak E' Michael: 3.7 cm/sec Med Peak E' Michael: 3.4 cm/sec MV A max michael: 102.0 cm/sec E/E' lat: 18.4 E/E' med: 20.1 MV E/A: 0.66 Ao V2 max: 140.9 cm/sec LV V1 max: 91.7 cm/sec PA V2 max: 110.6 cm/sec Ao max P.9 mmHg LV V1 max P.4 mmHg TR max michael: 234.8 cm/sec TR max P.1 mmHg Interpretation Summary Moderately dilated left ventricle. The estimated ejection fraction is 30 %. Stage 1 diastolic dysfunction. There is moderate to severe global hypokinesis of the left ventricle. Trivial mitral valve insufficiency. Trivial tricuspid valve insufficiency. Right ventricular systolic pressure estimated to be 27 mmHg. There is no comparison study available. Ordering Physician: Bright Arriaga Referring Physician: Tristan Denis M.D. Performed By: Nya Romano RDCS
[2019-03-08] MEDS: 0.9% Normal Saline 1,000 ML 125 ML IV ×3 (04:02→21:42)
--- NOTE | 2019-03-08 05:55 | EKG12_ITS ---
Test Reason : MORNING EKG Blood Pressure : / mmHG Vent. Rate : 083 BPM Atrial Rate : 083 BPM P-R Int : 144 ms QRS Dur : 114 ms QT Int : 416 ms P-R-T Axes : -09 071 118 degrees QTc Int : 488 ms AGE AND GENDER SPECIFIC ECG ANALYSIS Normal sinus rhythm Incomplete left bundle branch block Nonspecific ST/T wave Abnormality Prolonged QT Abnormal ECG Confirmed by MARITO LASSITER, DAKOTAH ([id number]), advertising editor ANA FREED ([id number]) on 03/13/2019 11:48:26 AM Referred By: DENNYS Confirmed By:DAKOTAH DEVI MD
[2019-03-08] MEDS: Heparin Injection (Vial) 5,000 UNIT/ML VIAL 5000 UNIT SC ×3 (06:19→21:02)
[2019-03-08] MEDS: Insulin Lispro 100 UNIT/ML INSULN.PEN SC ×5 (06:19→21:01)
[2019-03-08] MEDS: Acetaminophen 325 MG Tablet 650 MG PO (06:19)
[2019-03-08 07:05] LABS: Bedside Glucose 154 mg/dL (70-110)
--- NOTE | 2019-03-08 08:12 | PCM.PN.BLA ---
Progress Note Patient was seen and examined. Still has dysarthria. Her vitals are stable. Repeat Blood work in the process; lipid profile is uncontrolled MRI of the brain is pending 2D echo showed EF 30%, stage I diastolic dysfunction, moderate to severe global hypokinesis of the left ventricle Cardiology consulted Cardiac cath planned for Sunday On aspirin, Plavix, carvedilol, statin Increase statin to 80 mg p.o. daily STROKE Vital Signs/Narrative: Vital Signs Temp Pulse Resp BP Pulse Ox 03/08/19 07:50 91 03/08/19 07:25 98.3 F 55 L 14 111/55 L 99 03/08/19 07:01 82 03/08/19 06:26 98.3 F 83 17 134/66 H 96
[2019-03-08] MEDS: Glucerna Shake 120 ML LIQUID PO (09:04)
[2019-03-08] MEDS: Clopidogrel Bisulfate 75 MG Tablet PO (09:05)
[2019-03-08 09:11] LABS: Bedside Glucose 209 mg/dL (70-110)
--- NOTE | 2019-03-08 11:51 | PCM.CONS.C ---
Problem List (1) Peripheral vascular disease Status: Chronic (2) Hyperlipidemia Status: Chronic (3) Type 2 diabetes mellitus Status: Chronic (4) HTN (hypertension) Status: Chronic Reason for Consult Date of Consultation: 03/08/19 Reason for Consultation: LV dysfunction History of Present Illness: The patient is a 58 year old F With hypertension, peripheral vascular disease, statusy post Ultrasound evaluation of right lower extremity by Dr. Shannon in the recent past,Diabetes which is poorly controlled, unknown cholesterol, no previous known cardiac history.It is unclear whether the patient had angioplasty of her right lower extremity or not. I cannot locate any peripheral vascular angioplasty results.She had been on aspirin and Plavix in the past, but had significant bleeding in her arms and her Plavix was discontinued.Patient is a previous smoker of approximately 60 pack years, quit about 10 years ago. The patient was in normal health up until the last day or so when she developed progressively worsening fatigue, confusion, dysarthria, and sought medical attention [facility] ER. In the emergency room she was found to have a blood sugar of 580, and elevated BUN and creatinine as well. She was somewhat confused underwent a CAT scan which was negative for acute bleed. Patient was treated medically with IV fluids and admitted to the floor. Upon further history the patient states that she has had no exertional anginal symptoms but has had progressively worsening fatigue, shortness of breath and dyspnea on exertion over the last several months. It is uncertain whether she has been compliant with her antihypertensive medication of lisinopril. She reports that she is poorly compliant with her insulin and her hemoglobin A1c was 11%. As part of her cardiac work-up she underwent an EKG which showed normal sinus rhythm, incomplete left bundle branch block, and J-point elevation inferiorly and T wave inversion anteriorly in leads I and aVL. This led to a 2D echo with Doppler which was performed this morningWhich demonstrated moderate to severe global LV dysfunction with specific inferior posterior akinesis with an overall ejection fraction approximately 30%. We were unable to quantitate RVSP. Patient states that she has had a viral-like illness over the last week or so, but is never had a stress test or a heart catheterization.Her troponins are negative x3. The vascular ultrasound demonstrated possible significant distal aortic stenosis, with nonobstructive bilateral lower extremity occlusive disease, left greater than right by exercise PVRs[] Past Medical History Allergies/Adverse Reactions: Allergies No Known Allergies Allergy (Verified 08/13/18 23:55) Home Medications: Ambulatory Orders Medication Instructions Recorded Clopidogrel Bisulfate [Clopidogrel] 75 mg PO DAILY 08/14/18 Dulaglutide [Trulicity] 1.5 mg IM QWEEK 08/14/18 Insulin Glargine,Hum.rec.anlog 42 unit SC BID 08/14/18 [Basaglar Kwikpen U-100] Lisinopril [Zestril] 10 mg PO DAILY 08/14/18 Metformin HCl 1,000 mg PO BID 08/14/18 Simvastatin 40 mg PO QHS 08/14/18 Cilostazol 100 mg PO BID 03/08/19 Past Medical History (Chronic Problems): Chronic Problems Peripheral vascular disease (Chronic) Hyperlipidemia (Chronic) Type 2 diabetes mellitus (Chronic) HTN (hypertension) (Chronic) Surgical History: no surgical history Psychiatric History: No pertinent psych hx - *Family History Maternal History Items: No pertinent history Paternal History Items: No pertinent history Lives: Alone Smoking Status: Former smoker Alcohol: None Drugs: None Review of Systems - Review of Systems General: Reports: Fatigue. Denies: Fever, Night Sweats Cardiovascular: Reports: Shortness of Breath, Shortness of Breath with Exertion. Denies: Chest Discomfort, Orthopnea, PND, Peripheral Edema, Palpitations, Lightheadedness, Dizziness, Near Syncope, Syncope Respiratory: Denies: Cough, Sputum Production, Hemoptysis Gastrointestinal: Denies: Hematemesis, Hematochezia, Melena Genitourinary: Denies: Dysuria, Hematuria Skin: Denies: Rash Subjectve: Patient resting comfortably, no acute distress. Objective: Vital Signs Temp Pulse Resp BP Pulse Ox 98.3 F 55 L 14 111/55 L 91 03/08/19 07:25 03/08/19 07:25 03/08/19 07:25 03/08/19 07:25 03/08/19 07:50 Oxygen Delivery Method Room Air Weight: 158 lb 4.67 oz Body Mass Index (BMI) 28.0 Finger Stick Blood Glucose 434 Intake and Output for Last 24 Hours 03/06/19 03/07/19 03/08/19 23:59 23:59 23:59 Intake Total 3540 / 3540 Balance 3540 / 3540 General: Awake, Alert, Oriented x 3 HEENT: PERRL, EOMI, Sclera Non Icteric Neck: Supple, Good ROM, No Lymph Node Enlargement Lungs: Clear to auscultation Cardiovascular: Regular Rhythm, Normal S1, Normal S2, No Murmurs, No Rubs, No Gallops Vascular: No Carotid Bruits, Normal Femoral Pulses, Normal Radial Pulses, Normal Dorsalis Pedal Pulse, Normal Posterior Tibial Pulses Abdomen: Bowel Sounds Present, Soft, Non Tender, No HSM, No Organomegaly Extremities: No Cyanosis, No Clubbing, No edema Neurological: No Focal Motor or Sensory Deficit 03/07/19 23:45: WBC 8.3, RBC 4.52, Hgb 13.5, Hct 40.6, MCV 89.8, MCH 29.9, MCHC 33.3, Plt Count 221, MPV 12.2 H, Immature Gran % (Auto) 0.800, Neut % (Auto) 66.4, Lymph % (Auto) 22.6, [place] % (Auto) 7.4, Eos % (Auto) 2.3, Baso % (Auto) 0.5, Absolute Neuts (auto) 5.5, Nucleated RBC % 0 03/07/19 23:45: Sodium 129 L, Potassium 4.8, Chloride 91 L, Carbon Dioxide 29.0, Anion Gap 9, BUN 50 H, Creatinine 1.52 H, Est GFR (MDRD) Af Amer 45 L, Est GFR (MDRD) Non-Af 37 L, BUN/Creatinine Ratio 32.9 H, Glucose 580 H*, Calcium 8.9, Total Bilirubin 0.30, Troponin I < 0.015 03/08/19 01:00: Urine Color Straw, Urine Clarity Sl. Cloudy, Urine pH 6.0, Ur Specific [place] 1.010, Urine Protein Negative, Urine Glucose (UA) 1000 H, Urine Ketones Negative, Urine Occult Blood Negative, Urine Nitrite Negative, Urine Bilirubin Negative, Urine Urobilinogen Normal, Ur Leukocyte Esterase Negative, Urine RBC 0 SEEN, Urine WBC 0-5 SEEN 03/08/19 03:13: Troponin I < 0.015 03/08/19 05:55: Troponin I 0.021 Rhythm: EKG: ECHO: Stress Test: Cardiac Cath: PCI: CT Surgery: Holter monitor: EPS: PPM: CXR: Chest CT Scan: Assessment/Plan 1. LV dysfunction: The patient presents with confusion, hyperglycemic episode, superimposed on previous known diabetes, previous smoker, peripheral vascular disease, hypertension, hypercholesterolemia, with newly discovered markedly reduced LV function of around 30% with evidence of possible localized inferior/posterior akinesis. At this point I would treat the patient with baby aspirin, loaded with Plavix 300 mg x 1 now As I am uncertain whether she has been taking her Plavix consistently,followed by 75 mg a day, and start Coreg3.125 mg p.o. daily. Would recommend holding her LEATHA inhibitor until her BUN and creatinine have normalized as a result of her hyperglycemia. Given the patient's newly discovered LV dysfunction and risk factors I recommend she undergo a left heart catheterization on 02/08/2019. The risk/benefits of the procedure were thoroughly explained the patient including specific attention to lack of onsite surgical backup, and informed consent was obtained. 2. Hyperlipidemia: Recommend obtaining a fasting lipid profile. Recommend aggressive LDL reduction given her known peripheral vascular disease. Her LDL should be less than 70.Continue Lipitor for now. 3.Hypertension: The patient requires aggressive hypertension control given her LV dysfunction and diabetes. She was currently on lisinopril 10 mg p.o. daily. Recommend holding this until her BUN and creatinine normalized.Once they have normalized, would recommend restarting lisinopril 10 mg p.o. daily and titrating up to optimize her blood pressure. 4. Peripheral vascular disease: The patient has known peripheral vascular disease in her bilateral lower extremities, left greater than right, and is unclear whether the patient actually underwent peripheral vascular intervention by Dr. banda or whether this was simply ultrasound evaluation. We will attempt to get his old records. She has excellent pulses in her right groin however she has a suppose a distal aortic stenosis which may require caution engaging retrograde. Would recommend continuing baby aspirin, Plavix, and Pletal. 5.Thank you very much for the opportunity to participate in the cardiac care of your patient. Discussed with Dr. Orta. Code Visit Inpatient E&M: 40619 Init Hosp L2
[2019-03-08 12:47] LABS: Cholesterol 268 mg/dL (200); High Density Lipoprotein 40 mg/dL; Triglycerides 394 mg/dL; Very Low Density Lipoprotein 79 mg/dL (5-40)
[2019-03-08] MEDS: 0.9% Saline Lock 10 ML Syringe IV (13:18)
[2019-03-08] MEDS: Clopidogrel Bisulfate 300 MG Tablet PO (13:22)
[2019-03-08 13:31] LABS: Bedside Glucose 153 mg/dL (70-110)
--- NOTE | 2019-03-08 13:51 | CM.UR ---
Attempted to meet with patient at 12 noon for RN cm assessment however patient was leaving for imaging. Per Dr. Dyson this patient is to go for [facility] cath on Sunday. echo with EF of 30%. According to her [employer] plan the following facilities are in network (but not limited to): [facility] Contact Case Management if any additional questions. Barbara Perez RN, CCM.
[2019-03-08 15:53] LABS: Anion Gap 3 (5-15); BUN 24 mg/dL (7-18); BUN/Creat Ratio 20.2 RATIO (10-20); Calcium,Total 7.7 mg/dL (8.5-10.1); Chloride 107 mmol/L (98-107); Creatinine, Serum 1.19 mg/dL (0.55-1.02); EST Glomerular Filtration Rate 49 mL/min (>60); Est Glom Filt Rate - Afr Amer 60 mL/min (>60); Estimated Creatinine Clearance 42.11 ml/min; Glucose 207 mg/dL (74-106); Potassium 4.1 mmol/L (3.5-5.1); Sodium Level 138 mmol/L (136-145)
[2019-03-08 16:46] LABS: Bedside Glucose 180 mg/dL (70-110)
[2019-03-08] MEDS: Carvedilol 3.125 MG TABLET PO (21:01)
[2019-03-08] MEDS: Atorvastatin Calcium 80 MG Tablet PO (21:02)
[2019-03-08 22:06] LABS: Bedside Glucose 246 mg/dL (70-110)
--- NOTE | 2019-03-08 23:33 | CT_ITS ---
HISTORY: CONFUSION,ALTERED MENTAL STATUSHX:HTN,DIABETES Technique:CT Head or Brain W/O Contrast Injection Number of Images including paperwork:231 Comparison: CT scan of the brain from October 25, 2016 Findings: CT images of the head were obtained without contrast. Periventricular deep and subcortical white matter disease is present. Right maxillary sinus disease. Mucoperiosteal thickening within the ethmoid air cells. This is new disease. Calcific plaque within the right vertebral artery. The brain is atrophic. Calcific ASCVD involves intracranial arteries. No acute intracranial edema or hemorrhage. No acute abnormality of orbits. Middle ear cavities and mastoid air cells are well aerated. Skull is normal. CT/Brain/Head without Contrast IMPRESSION: No acute intracranial abnormality. Chronic changes as above. ASPECT 10. Individualized dose optimization techniques were used for this CT. at 0116 Reported and signed by: Abraham Woods MD Electronically Signed: Abraham Woods MD at 1:15 EST Tel , Service support ,
[2019-03-09] VITALS (10 sets, daily range): BP systolic 120–165; BP diastolic 59–77; PULSE 69–89; RESP 16–18; TEMP 36.4–36.8; O2SAT 94–98; BMI 28.0
[2019-03-09 00:01] LABS: International Normalized Ratio 0.9; Prothrombin Time (Protime)PT. 11.8 SECONDS (11.7-14.9)
[2019-03-09] MEDS: 0.9% Normal Saline 1,000 ML 125 ML IV (05:15)
[2019-03-09] MEDS: Heparin Injection (Vial) 5,000 UNIT/ML VIAL 5000 UNIT SC ×3 (05:15→21:18)
[2019-03-09] MEDS: Insulin Lispro 100 UNIT/ML INSULN.PEN SC ×4 (06:30→21:23)
[2019-03-09 07:00] LABS: Bedside Glucose 179 mg/dL (70-110)
[2019-03-09 07:31] LABS: Anion Gap 2 (5-15); BUN 20 mg/dL (7-18); BUN/Creat Ratio 26.5 RATIO (10-20); Calcium,Total 7.6 mg/dL (8.5-10.1); Chloride 112 mmol/L (98-107); Creatinine, Serum 0.76 mg/dL (0.55-1.02); EST Glomerular Filtration Rate 83 mL/min (>60); Est Glom Filt Rate - Afr Amer 101 mL/min (>60); Estimated Creatinine Clearance 65.93 ml/min; Glucose 182 mg/dL (74-106); Potassium 4.2 mmol/L (3.5-5.1); Sodium Level 142 mmol/L (136-145)
--- NOTE | 2019-03-09 07:42 | PCM.PN.HOSP ---
Patient Problems: Active and Suspected Problems Dysarthria (Acute) Hyperglycemia due to type 2 diabetes mellitus (Acute) Altered mental status (Acute) ADAN (acute kidney injury) (Acute) Abnormal EKG (Acute) Reason for Visit: Follow-up on acute stroke Subjective: Patient was seen and examined. Her dysarthria has improved. Denies any weakness in upper extremities. Her NIHSS score is 1. Vitals/I&O's: Vital Signs Temp Pulse Resp BP Pulse Ox 97.7 F L 77 18 137/65 H 98 03/09/19 05:00 03/09/19 07:00 03/09/19 05:00 03/09/19 05:00 03/09/19 05:00 Oxygen Delivery Method Room Air Weight: 71.8 kg Body Mass Index (BMI) 28.0 Finger Stick Blood Glucose 434 Intake and Output for Last 24 Hours 03/07/19 03/08/19 03/09/19 23:59 23:59 23:59 Intake Total 4940 / 5400 1540 / 1540 Balance 4940 / 5400 1540 / 1540 General: Alert, Oriented x3, Cooperative, No apparent distress HEENT: Atraumatic, PERRLA, EOMI, Normocephalic Neck: Supple Lungs: Clear to auscultation, Normal air movement Cardiovascular: Regular rate, Regular Rhythm, Normal S1, Normal S2, No murmurs Abdomen: Bowel Sounds Present, Soft, Non Tender, Non-Distended, No Hepato-splenomegaly Extremities: No edema Skin: No rashes, No breakdown Musculoskeletal: No Tenderness to Palpation of Joints or Extremities Lymphatic: No Cervical, Supraclavicular, or Inguinal Adenopathy Neurological: Cranial nerves II-XII grossly intact, Neuro grossly intact - except for dysarthria Psych/Mental Status: Normal Affect, Appropriate Laboratory Results 03/08/19 05:55: Triglycerides 394 H, Cholesterol 268 H, LDL Cholesterol 149 H, VLDL Cholesterol 79 H, HDL Cholesterol 40 03/08/19 09:03: POC Glucose 209 H 03/08/19 11:30: PT 11.8, INR 0.9 03/08/19 13:17: POC Glucose 153 H 03/08/19 15:15: Sodium 138, Potassium 4.1, Chloride 107, Carbon Dioxide 28.0, Anion Gap 3 L, BUN 24 H, Creatinine 1.19 H, Estim Creat Clear Calc 42.11, Est GFR (MDRD) Af Amer 60, Est GFR (MDRD) Non-Af 49 L, BUN/Creatinine Ratio 20.2 H, Glucose 207 H, Calcium 7.7 L 03/08/19 16:39: POC Glucose 180 H 03/08/19 20:59: POC Glucose 246 H 03/09/19 06:20: Sodium 142, Potassium 4.2, Chloride 112 H, Carbon Dioxide 28.0, Anion Gap 2 L, BUN 20 H, Creatinine 0.76, Estim Creat Clear Calc 65.93, Est GFR (MDRD) Af Amer 101, Est GFR (MDRD) Non-Af 83, BUN/Creatinine Ratio 26.5 H, Glucose 182 H, Calcium 7.6 L 03/09/19 06:29: POC Glucose 179 H Current Medications Acetaminophen (Tylenol) 650 mg PO Q6H PRN PRN PRN Reason: Pain Score 1-10/Temp > 100.7 F Last Admin: 03/08/19 06:19 Dose: 650 mg Documented by: Aspirin (Ecotrin) 81 mg PO DAILY@0800 [facility] Atorvastatin Calcium (Lipitor) 80 mg PO QHS [facility] Last Admin: 03/08/19 21:02 Dose: 80 mg Documented by: Carvedilol (Coreg) 3.125 mg PO BID [facility] Last Admin: 03/08/19 21:01 Dose: 3.125 mg Documented by: Clopidogrel Bisulfate (Plavix) 75 mg PO DAILY [facility] Last Admin: 03/08/19 09:05 Dose: 75 mg Documented by: Glucagon () 1 mg IM .X1 PRN PRN Reason: Hypoglycemia Heparin Sodium (Porcine) (Heparin Na) 5,000 unit SC Q8 [facility] Last Admin: 03/09/19 05:15 Dose: 5,000 unit Documented by: Sodium Chloride () 1,000 mls @ 125 mls/hr IV .Q8H [facility] Last Admin: 03/09/19 05:15 Dose: 125 mls/hr Documented by: Dextrose (Dextrose 10%-Water) 250 mls @ 999 mls/hr IV .Q16M PRN; Protocol PRN Reason: HYPOGLYCEMIA Sodium Chloride () 250 mls @ 15 mls/hr IV .[id number] PRN PRN Reason: Saline Flush Sodium Chloride () 250 mls @ 15 mls/hr IV .[id number] PRN PRN Reason: Additional IVPB Infusion Insulin Glargine (Lantus (Bkc)) 52 units SC BID [facility] Insulin Human Lispro (Humalog Kwikpen (Bkc)) 0 unit SC ACHS JUSTINE; Protocol Last Admin: 03/09/19 06:30 Dose: 2 units Documented by: Ondansetron HCl (Zofran) 4 mg IV Q8H PRN PRN PRN Reason: NAUSEA/VOMITING Sodium Chloride () 10 - 40 ml IV UD PRN PRN Reason: SALINE FLUSH Last Admin: 03/08/19 13:18 Dose: 10 ml Documented by: Zolpidem Tartrate (Ambien (Generic)) 5 mg PO QHS PRN PRN PRN Reason: INSOMNIA STROKE Vital Signs/Narrative: Vital Signs Temp Pulse Resp BP Pulse Ox 03/09/19 07:00 77 03/09/19 05:00 97.7 F L 71 18 137/65 H 98 Medical Necessity - Tobacco Use Smoking Status: Unknown if ever smoked Assessment/Plan All Active Problems Dysarthria (Acute) Hyperglycemia due to type 2 diabetes mellitus (Acute) Altered mental status (Acute) ADAN (acute kidney injury) (Acute) Abnormal EKG (Acute) 1. Acute CVA, acute ischemic changes in the left frontal and parietal lobes. MRA of the head was no large vessel occlusion. MRA of the neck without contrast shows possible 70% occlusion of the left carotid artery Lipid profile is uncontrolled, HgbA1c is pending, 2D echo shows EF of 30%, no PFO or valvular lesions. Telemetry is negative for A. fib On aspirin, Plavix, statin, lisinopril We will get MRI of the neck with contrast Patient will need 30 day monitor on discharge Continue with PT and OT and speech therapy evaluations 2. Type II DM, better control, still hyperglycemic, previous HbA1c was 11 in November Continue on Lantus 52 units twice daily, blood glucose checks with insulin sliding scale 3. Hypertension, controlled, continue lisinopril and carvedilol 4. Cardiomyopathy, abnormal EKG on admission, EF of 30%, global hypokinesis of the left ventricle Negative troponins, cardiology consulted, outpatient cardiac cath planned 5. PAD, on aspirin and Plavix now 6. Hyperlipidemia, uncontrolled, on high-dose statin 7. DVT PPx- Heparin SC Code Visit Inpatient E&M: 57530 Subs Hosp L2
[2019-03-09] MEDS: Carvedilol 3.125 MG TABLET PO ×2 (08:00→21:17)
[2019-03-09] MEDS: Clopidogrel Bisulfate 75 MG Tablet PO (08:00)
[2019-03-09] MEDS: Aspirin E.C. 81 MG Tablet PO (08:00)
--- NOTE | 2019-03-09 10:30 | MRI_ITS ---
STUDY: MRA OF THE HEAD WITHOUT CONTRAST REASON FOR EXAM: Female, 58 years old. acute stroke. acute stroke TECHNIQUE: 3-D [id number] (TOF) imaging was performed with MIPs. The study was performed unenhanced. COMPARISON: None. FINDINGS: Patent right cavernous carotid artery. Patent left cavernous carotid artery. Patent right A1 segments of the anterior cerebral artery. Patent left A1 segments of the anterior cerebral artery. Unremarkable anterior communicating artery (ACOM) region. Normal bilateral A2 segments of the anterior cerebral arteries. Patent right M1 and M2 segments of the middle cerebral arteries, with a unremarkable M1 bifurcation. Patent left M1 and M2 segments of the middle cerebral arteries, with a unremarkable M1 bifurcation. There is non-visualization of the right posterior communicating artery (PCOM). There is non-visualization of the left posterior communicating artery (PCOM). Patent basilar artery with a normal basilar bifurcation. Patent bilateral posterior cerebral arteries. MRI/MRA Head ONLY without Contrast IMPRESSION: No large vessel occlusion. Electronically Signed: Tim Lucas MD at 11:37 EST Tel , Service support ,
--- NOTE | 2019-03-09 10:30 | MRI_ITS ---
STUDY: MRA NECK WITHOUT CONTRAST REASON FOR EXAM: Female, 58 years old. acute stroke TECHNIQUE: Source images were obtained, MIPs were performed. The study was performed unenhanced. COMPARISON: None FINDINGS: The origin of the great vessels are not well seen due to significant patient motion artifact. The bilateral common carotid arteries however appear patent. There is significant narrowing of the left proximal cervical internal carotid artery suspected no more than 70%. Narrowing at the right proximal internal carotid artery also suspected however the mid and distal segments appear patent. Please consider CT angiogram or MR angiogram for complete assessment. A right dominant vertebral artery seen. Bilateral vertebral arteries in the visualized segments appear patent. IMPRESSION: Approximately more than 70% stenosis of the proximal left cervical internal carotid artery suspected however there is significant patient motion artifact. Please consider CT angiogram or MR angiogram with IV contrast of the neck for better characterization Electronically Signed: [place], at 12:57 EST Tel , Service support , MRI/MRA Neck without Contrast
--- NOTE | 2019-03-09 10:31 | PCM.PN.CARD ---
Subjectve: Patient's mental status slowly improving, but still has a slight slur when speaking. No other focal deficits at this time. MRI of the brain obtained and results reviewed. Her MRI took place after we had spoke and shows the following results: Moderate periventricular white matter ischemic changes. Tiny foci of acute ischemic changes in the left frontal and parietal lobes. Chronic ischemic changes in the [place] She denies any chest pain or anginal symptoms. Telemetry is negative overnight. Objective: Vital Signs Temp Pulse Resp BP Pulse Ox 97.7 F L 69 16 120/59 L 94 03/09/19 09:02 03/09/19 09:02 03/09/19 09:02 03/09/19 09:02 03/09/19 09:02 Oxygen Delivery Method Room Air Weight: 158 lb 4.67 oz Body Mass Index (BMI) 28.0 Finger Stick Blood Glucose 434 Intake and Output for Last 24 Hours 03/07/19 03/08/19 03/09/19 23:59 23:59 23:59 Intake Total 4940 / 5400 2192.08 / 2192.08 Balance 4940 / 5400 2192.08 / 2192.08 03/08/19 05:55: Triglycerides 394 H, Cholesterol 268 H, LDL Cholesterol 149 H, VLDL Cholesterol 79 H, HDL Cholesterol 40 03/08/19 11:30: PT 11.8, INR 0.9 03/08/19 15:15: Sodium 138, Potassium 4.1, Chloride 107, Carbon Dioxide 28.0, Anion Gap 3 L, BUN 24 H, Creatinine 1.19 H, Est GFR (MDRD) Af Amer 60, Est GFR (MDRD) Non-Af 49 L, BUN/Creatinine Ratio 20.2 H, Glucose 207 H, Calcium 7.7 L 03/09/19 06:20: Sodium 142, Potassium 4.2, Chloride 112 H, Carbon Dioxide 28.0, Anion Gap 2 L, BUN 20 H, Creatinine 0.76, Est GFR (MDRD) Af Amer 101, Est GFR (MDRD) Non-Af 83, BUN/Creatinine Ratio 26.5 H, Glucose 182 H, Calcium 7.6 L Rhythm: EKG: ECHO: Stress Test: Cardiac Cath: PCI: CT Surgery: Holter monitor: EPS: PPM: CXR: Chest CT Scan: Medical Necessity - Tobacco Use Smoking Status: Unknown if ever smoked Assessment/Plan 1. LV dysfunction: The patient presents with confusion, hyperglycemic episode, superimposed on previous known diabetes, previous smoker, peripheral vascular disease, hypertension, hypercholesterolemia, with newly discovered markedly reduced LV function of around 30% with evidence of possible localized inferior/posterior akinesis. At this point I would treat the patient with baby aspirin, loaded with Plavix 300 mg x 1 now As I am uncertain whether she has been taking her Plavix consistently,followed by 75 mg a day, and start Coreg 3.125 mg p.o. daily. Given the patient's newly discovered LV dysfunction and risk factors I recommend she will need to undergo a left heart catheterization some point in the near future. Unfortunately the patient's neurological status precludes catheterization at this time given her recent small CVA as found by MRI. However, the risk/benefits of the procedure were thoroughly explained the patient including specific attention to lack of onsite surgical backup, and informed consent was obtained. I recommend that we proceed with left heart catheterization in 3 weeks time once her CVA has resolved. I would not recommend catheterization at this time given her recent CVA as she may have plaquing on the inside portion of her aorta which may contribute to additional stroke. Would recommend lifelong baby aspirin and Plavix given her peripheral vascular disease and possible coronary disease. I do not believe she requires anticoagulation at this time. Will defer to neuro regarding anticoagulation recommendations. Would recommend carotid ultrasound to evaluate her carotids prior to discharge. 2. Hyperlipidemia: LDL is 149 and HDL is 40. Recommend aggressive LDL reduction given her known peripheral vascular disease. Her LDL should be less than 70.Continue high-dose Lipitor for now. Repeat lipids in 6 weeks time. 3.Hypertension: The patient requires aggressive hypertension control given her LV dysfunction and diabetes. Now that her BUN and creatinine have normalized, recommend restarting her lisinopril at 10 mg p.o. daily and titrating up from there. 4. Peripheral vascular disease: The patient has known peripheral vascular disease in her bilateral lower extremities, left greater than right, and is unclear whether the patient actually underwent peripheral vascular intervention by Dr. Shannon or whether this was simply ultrasound evaluation. We will attempt to get his old records. She has excellent pulses in her right groin however she has a suppose a distal aortic stenosis which may require caution engaging retrograde. Would recommend continuing baby aspirin, Plavix, and Pletal. 5.Thank you very much for the opportunity to participate in the cardiac care of your patient. Code Visit Inpatient E&M: 71203 Subs Hosp L2
[2019-03-09] MEDS: Loratadine 10 MG Tablet PO (11:21)
[2019-03-09 11:25] LABS: Bedside Glucose 216 mg/dL (70-110)
[2019-03-09] MEDS: Senna/Docusate Sodium 1 Tablet 2 TABLET PO (12:09)
[2019-03-09 16:01] LABS: Hemoglobin A1c 12.4 % (4.2-6.3)
[2019-03-09 16:31] LABS: Bedside Glucose 192 mg/dL (70-110)
[2019-03-09] MEDS: Atorvastatin Calcium 80 MG Tablet PO (21:18)
[2019-03-09 21:35] LABS: Bedside Glucose 340 mg/dL (70-110)
[2019-03-10] VITALS (7 sets, daily range): BP systolic 150–165; BP diastolic 70–90; PULSE 72–77; RESP 16–20; TEMP 36.6; O2SAT 96–97; BMI 28.0
[2019-03-10] MEDS: Heparin Injection (Vial) 5,000 UNIT/ML VIAL 5000 UNIT SC ×2 (05:03→11:34)
[2019-03-10 05:39] LABS: Absolute Lymphocyte Count 2.12 X10^3/uL (0.83-4.51); Absolute Neutrophil Count 3.3 X10^3/uL (2.0-7.7); Basophil# 0.05 X10^3/uL; Basophil% 0.8 % (0-1); Eosinophil# 0.17 X10^3/uL; Eosinophils% 2.7 % (0-5); Hematocrit 38.8 % (37-47); Hemoglobin 12.6 g/dL (12.0-15.0); Lymphocyte # 2.12 X10^3/ul (4.0); Lymphocyte % 33.7 % (19-41); Mean Corp Hgb Conc 32.5 g/dL (32-36); Mean Corpuscular Hgb 29.4 pg (27.0-32.0); Mean Corpuscular Volume 90.7 fL (81-99); Monocyte% 7.9 % (0-10); NRBC Flagged by Analyzer 0 % (0-5); Neutrophil # 3.29 X10^3/uL (2.7-7.7); Neutrophil % 52.2 % (47-70); Platelet Count 200 K/mm3 (150-450); RBC Distribution Width CV 12.8 % (11.6-14.6); RBC Distribution Width SD 41.7 fl (35.1-43.9); Red Blood Count 4.28 M/mm3 (4.2-5.4); White Blood Count 6.3 K/mm3 (4.4-11.0)
[2019-03-10 05:56] LABS: Albumin, Serum 2.5 g/dL (3.2-5.0); BUN 16 mg/dL (7-18); BUN/Creat Ratio 24.3 RATIO (10-20); Calcium,Total 8.3 mg/dL (8.5-10.1); Chloride 113 mmol/L (98-107); Creatinine, Serum 0.66 mg/dL (0.55-1.02); EST Glomerular Filtration Rate 98 mL/min (>60); Est Glom Filt Rate - Afr Amer 118 mL/min (>60); Estimated Creatinine Clearance 75.92 ml/min; Glucose 92 mg/dL (74-106); Phosphorus 2.9 mg/dL (2.5-4.9); Potassium 3.7 mmol/L (3.5-5.1); Sodium Level 142 mmol/L (136-145)
[2019-03-10 06:51] LABS: Bedside Glucose 109 mg/dL (70-110)
--- NOTE | 2019-03-10 08:16 | CT_ITS ---
STUDY: CTA HEAD AND NECK WITH CONTRAST REASON FOR EXAM: Female, 58 years old. CVA, ADMITTED FOR SLURRED SPEECH, DYSARTHRIA, CONFUSION, UNCONTROLLED DB, HTN, PVD, ADAN RADIATION DOSAGE (If Supplied By Facility): CTDIvol = ( 23.16 ) mGy, DLP = ( 1504.25 ) mGycm TECHNIQUE: CT angiography was performed with a multi-detector CT scanner. Data acquisition was obtained from the skull base through the vertex following intravenous administration of 100ML ISOVUE 370. MIP images were reconstructed from the axial data set. Post-processing of the angiographic images was performed, with multiplanar reformation and 3D reconstruction. Individualized dose optimization techniques were used for this CT. COMPARISON: No relevant priors. FINDINGS: Normal bilateral petrous carotid arteries. Normal right cavernous carotid artery with a normal supraclinoid bifurcation. Normal left cavernous carotid artery with a normal supraclinoid bifurcation. Normal right A1 segments of the anterior cerebral artery. Normal left A1 segments of the anterior cerebral artery. Normal intact anterior communicating artery (ACOM). Normal bilateral A2 segments of the anterior cerebral arteries. Normal right M1 and M2 segments of the middle cerebral arteries, with a normal M1 bifurcation. Normal left M1 and M2 segments of the middle cerebral arteries, with a normal M1 bifurcation. Normal right posterior communicating artery (PCOM). Normal left posterior communicating artery (PCOM). Normal bilateral vertebral arteries. Normal basilar artery with a normal basilar bifurcation. The visualized bilateral superior cerebellar (SCA) arteries are normal. Normal bilateral P1, P2 and visualized P3 segments of the posterior cerebral arteries. There is no demonstrated aneurysm of the [place]. AORTIC ARCH: There is multifocal calcified vascular plaque involving the thoracic aortic arch. No evidence of aneurysm or dissection. Normal origins of the brachiocephalic, left common carotid, and left subclavian arteries. RIGHT CAROTID ARTERIES: Normal right common carotid artery (CCA). There is significant calcified peribulbar hard plaque with approximately 40% diameter narrowing. Normal origin of the right internal carotid (ICA) artery without a hemodynamically significant stenosis. Normal visualized cervical portion of the right internal carotid artery. Normal origin of the right external carotid artery (ECA). LEFT CAROTID ARTERIES: Normal left common carotid artery (CCA). There is calcified, multifocal, peribulbar hard plaque with approximately 40% diameter narrowing. Normal origin of the left internal carotid (ICA) artery without a hemodynamically significant stenosis. Normal visualized cervical portion of the left internal carotid artery. Normal origin of the left external carotid artery (ECA). VERTEBRAL ARTERIES: Patent vertebral arteries. The patient is right dominant vertebral artery. Multifocal calcified plaque is seen throughout bilateral vertebral arteries without evidence of hemodynamically significant stenosis. CT/CTA Head AND Neck W/ Contrast IMPRESSION: Multifocal calcified hard plaque compatible with atherosclerotic peripheral vascular disease. Bilateral peribulbar plaque resulting in approximately 40% diameter stenosis. No CT evidence of hemodynamically significant stenosis. No evident aneurysm or focal ectasia. No evidence of vasculitis. Electronically Signed: Patricio Higginbotham MD at 11:55 EST , Service support ,
[2019-03-10] MEDS: Carvedilol 3.125 MG TABLET PO (09:01)
[2019-03-10] MEDS: Aspirin E.C. 81 MG Tablet PO (09:01)
[2019-03-10] MEDS: Clopidogrel Bisulfate 75 MG Tablet PO (09:02)
[2019-03-10] MEDS: Lisinopril 10 MG Tablet PO (09:03)
[2019-03-10] MEDS: Loratadine 10 MG Tablet PO (09:03)
[2019-03-10 09:15] LABS: Bedside Glucose 104 mg/dL (70-110)
--- NOTE | 2019-03-10 09:27 | CASEMGMT ---
SW attempted to complete PHQ 9 with patient as she may have had a Stroke. However, patient refused. Hermila GONZALES MSW
--- NOTE | 2019-03-10 10:29 | CASEMGMT ---
LAVERN CRUMP assessment: Face to Face with patient for initial transition planning/care coordination assessment. LAVERN CRUMP introduced self and role at [facility], pt voices understanding and consents to assessment at this time. Pt is sitting up in bed in no distress at this time. Pt is A/Ox4 at this time and answers all questions appropriately at this time. Care providers, pharmacy, and demographics verified at this time. Presentation: Confusion Admitting dx: Dysarthria/AMS, ADAN, Hyperglycemia PCP: Pt was w/ Tristan Denis but he retired and states was transferred to someone in office but cannot remember name. Specialists: [facility] Preferred Pharmacy: [facility] Insurance: [employer] Prescription Benefit: [employer] Living Will/HPOA: Pt states does not have LW/HPOA and declines AD info at this time. Pt is aware that [facility] SW can complete AD's while here if she would like and pt declines at this time. LNOK: Michael Roach, son Living Arrangements: Pt states lives alone in 2 story apartment and states no concerns at home at this time. Pt states is independent with ADL's. Transportation: Pt states drives self and states no transportation concerns at this time. DME/HHC: Pt states no current DME or need for any at this time. Pt states no hx of HHC or SNF in the past. Pt states no concerns with going home at time of discharge. 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 Pt states quit smoking about 1.5year ago and states does not drink ETOH. Pt states no further concerns/needs at this time. CM to follow for any further discharge planning/needs. Advised pt to ask for CM if any further questions/concerns/needs arise, voices understanding. Pt Goal: Home Plan[place] LAVERN CRUMP
[2019-03-10] MEDS: Insulin Lispro 100 UNIT/ML INSULN.PEN SC (11:34)
--- NOTE | 2019-03-10 11:34 | PCM.DC ---
- Discharge Diagnoses Current Active Problems: Current Active and Chronic Problems Dysarthria (Acute) Peripheral vascular disease (Chronic) Hyperlipidemia (Chronic) Type 2 diabetes mellitus (Chronic) HTN (hypertension) (Chronic) Hyperglycemia due to type 2 diabetes mellitus (Acute) Altered mental status (Acute) ADAN (acute kidney injury) (Acute) Abnormal EKG (Acute) You will use the following diet at home:: Calorie/Carbohydrate Controlled (specify 1200, 1400, etc) - 1800 Your food should be the consistency of: Regular Discharge Activity: Return to Normal Activity Allergies/Adverse Reactions: Allergies No Known Allergies Allergy (Verified 08/13/18 23:55) Medications to take at Discharge Clopidogrel Bisulfate [Clopidogrel] 75 mg PO DAILY 08/14/18 Dulaglutide [Trulicity] 1.5 mg IM QWEEK 08/14/18 Insulin Glargine,Hum.rec.anlog [Basaglar Kwikpen U-100] 42 unit SC BID 08/14/18 Lisinopril [Zestril] 10 mg PO DAILY 08/14/18 Metformin HCl 1,000 mg PO BID 08/14/18 Cilostazol 100 mg PO BID 03/08/19 Aspirin E.C. [Ecotrin] 81 mg PO DAILY@0800 #60 tab 03/10/19 Atorvastatin Calcium [Lipitor] 80 mg PO QHS #60 tab 03/10/19 Carvedilol [Coreg (Beta Katrina)] 3.125 mg PO BID #120 tab 03/10/19 The following prescriptions were given: Carvedilol [Coreg (Beta Katrina)] 3.125 mg PO BID #120 tab Transmission Status: Received by [facility] Aspirin E.C. [Ecotrin] 81 mg PO DAILY@0800 #60 tab Transmission Status: Received by [facility] #30 Atorvastatin Calcium [Lipitor] 80 mg PO QHS #60 tab Transmission Status: Received by [facility] Primary Care Physician: Tristan Denis MD [Primary Care Provider] - Please follow up with your Primary Care Physician in: In 3 to 5 days Test Results: Test results from this visit will be discussed in further detail at your follow-up appointment, if applicable. Please Follow Up With: Chapo Dyson MD When: in 2-3 weeks for outpatient left heart catheterization Proposed Discharge Date: 03/10/19
--- NOTE | 2019-03-10 11:35 | PCM.DC.SUM ---
Discharge Date and Diagnosis - Problem List Patient Problems: Active and Suspected Problems Dysarthria (Acute) Hyperglycemia due to type 2 diabetes mellitus (Acute) Altered mental status (Acute) ADAN (acute kidney injury) (Acute) Abnormal EKG (Acute) Date of Admission: 03/08/19 Date of Discharge: 03/10/19 - Primary Discharge Diagnosis Active and Suspected Problems Dysarthria (Acute) Hyperglycemia due to type 2 diabetes mellitus (Acute) Altered mental status (Acute) ADAN (acute kidney injury) (Acute) Abnormal EKG (Acute) - Secondary Discharge Diagnosis Chronic Problems Peripheral vascular disease (Chronic) Hyperlipidemia (Chronic) Type 2 diabetes mellitus (Chronic) HTN (hypertension) (Chronic) Hospital Course and Treatment Imaging Results: Clinical Impression(s) from Imaging Studies Chest X-Ray 03/07/19 00:30 IMPRESSION: Normal. at 0127 Reported and signed by: Abraham Woods MD Electronically Signed: Abraham Woods MD at 1:26 EST Tel , Service support , Brain MRI 03/08/19 02:52 IMPRESSION: Moderate periventricular white matter ischemic changes. Tiny foci of acute ischemic changes in the left frontal and parietal lobes. Chronic ischemic changes in the [place] Electronically Signed: Maldonado Enciso MD at 16:35 EST , Service support , ADDENDUM: 03/08/19 1714 IMPRESSION: Moderate periventricular white matter ischemic changes. Tiny foci of acute ischemic changes in the left frontal and parietal lobes. Chronic ischemic changes in the [place] N.B. : The above information has been verbally conveyed by Maldonado Enciso MD to Dr. Marivel MD, on 03/08/2019 17:07:31 (ET). Electronically Signed: Maldonado Enciso MD at 16:35 EST , Service support , ADDENDUM: 03/08/19 1717 IMPRESSION: Moderate periventricular white matter ischemic changes. Tiny foci of acute ischemic changes in the left frontal and parietal lobes. Chronic ischemic changes in the [place] N.B. : The above information has been verbally conveyed by Maldonado Enciso MD to Dr. Marivel MD, on 03/08/2019 17:10:06 (ET). Electronically Signed: Maldonado Enciso MD at 16:35 EST , Service support , Brain CT 03/08/19 23:33 IMPRESSION: No acute intracranial abnormality. Chronic changes as above. ASPECT 10. Individualized dose optimization techniques were used for this CT. at 0116 Reported and signed by: Abraham Woods MD Electronically Signed: Abraham Woods MD at 1:15 EST Tel , Service support , Head MRA 03/09/19 10:30 IMPRESSION: No large vessel occlusion. Electronically Signed: Tim Lucas MD at 11:37 EST Tel , Service support , Neck MRA 03/09/19 10:30 Head/Neck CTA 03/10/19 08:16 IMPRESSION: Multifocal calcified hard plaque compatible with atherosclerotic peripheral vascular disease. Bilateral peribulbar plaque resulting in approximately 40% diameter stenosis. No CT evidence of hemodynamically significant stenosis. No evident aneurysm or focal ectasia. No evidence of vasculitis. Electronically Signed: Patricio Higginbotham MD at 11:55 EST , Service support , Summary of Care Provided: The patient is a 58 year old F admitted with altered mental status. Subsequent evaluation came back consistent with acute CVA 1. Acute CVA ~MRI demonstrated ischemic changes involving the left frontal and parietal lobes. Echo demonstrated EF of 30% with no PFO no valvular lesions. MR ray obtained showed possible 70% occlusion involving the left carotid artery CTA however demonstrated occlusion of 40%. Patient was placed on dual antiplatelet therapy in addition to statin therapy 2. Cardiomyopathy with ejection fraction of 30% ~Patient was discharged home with a 30-day event monitor. Was also seen in consultation by Dr. Dyson with cardiology with plans for patient to undergo left heart catheterization as part of management of patient ischemia within 3 weeks following her acute CVA 3. Hypertension ~ blood pressure controlled, home medications continued with dose adjustment as needed 4. Dyslipidemia ~patient is on statin therapy, continued at home dose 5. Diabetes mellitus type II ~ Placed on long acting insulin, Accu-Cheks a.c. and at bedtime and covered with sliding scale insulin 6. Peripheral arterial disease ~ Patient is on dual antiplatelet therapy patient is managed by as outpatient 7. DVT prophylaxis ~SC heparin Patient Problems: Active and Suspected Problems Dysarthria (Acute) Hyperglycemia due to type 2 diabetes mellitus (Acute) Altered mental status (Acute) ADAN (acute kidney injury) (Acute) Abnormal EKG (Acute) - Physical Exam Vitals/I&O's: Vital Signs Temp Pulse Resp BP Pulse Ox 97.9 F 72 16 150/90 H 96 03/10/19 08:17 03/10/19 11:02 03/10/19 08:17 03/10/19 08:17 03/10/19 08:17 Oxygen Delivery Method Room Air Weight: 71.8 kg Body Mass Index (BMI) 28.0 Finger Stick Blood Glucose 434 Intake and Output for Last 24 Hours 03/08/19 03/09/19 03/10/19 23:59 23:59 23:59 Intake Total 4940 / 5400 2992.08 / 3472.08 600 / 600 Balance 4940 / 5400 2992.08 / 3472.08 600 / 600 General: Alert HEENT: Atraumatic Neck: Supple Lungs: Clear to auscultation Cardiovascular: Regular rate, Regular Rhythm Laboratory Results 03/09/19 06:20: Hemoglobin A1c 12.4 H 03/09/19 16:22: POC Glucose 192 H 03/09/19 21:23: POC Glucose 340 H 03/10/19 04:52: WBC 6.3, RBC 4.28, Hgb 12.6, Hct 38.8, MCV 90.7, MCH 29.4, MCHC 32.5, RDW Std Deviation 41.7, RDW Coeff of Jessica 12.8, Plt Count 200, MPV 12.0, Immature Gran % (Auto) 2.700 H, Neut % (Auto) 52.2, Lymph % (Auto) 33.7, [place] % (Auto) 7.9, Eos % (Auto) 2.7, Baso % (Auto) 0.8, Absolute Neuts (auto) 3.3, Absolute Lymphs (auto) 2.12, Nucleated RBC % 0 03/10/19 04:52: Sodium 142, Potassium 3.7, Chloride 113 H, Carbon Dioxide 24.0, BUN 16, Creatinine 0.66, Estim Creat Clear Calc 75.92, Est GFR (MDRD) Af Amer 118, Est GFR (MDRD) Non-Af 98, BUN/Creatinine Ratio 24.3 H, Glucose 92, Calcium 8.3 L, Phosphorus 2.9, Albumin 2.5 L 03/10/19 06:38: POC Glucose 109 03/10/19 08:19: POC Glucose 104 Current Medications Aspirin (Ecotrin) 81 mg PO DAILY@0800 [facility] Last Admin: 03/10/19 09:01 Dose: 81 mg Documented by: Atorvastatin Calcium (Lipitor) 80 mg PO QHS [facility] Last Admin: 03/09/19 21:18 Dose: 80 mg Documented by: Carvedilol (Coreg) 3.125 mg PO BID [facility] Last Admin: 03/10/19 09:01 Dose: 3.125 mg Documented by: Clopidogrel Bisulfate (Plavix) 75 mg PO DAILY [facility] Last Admin: 03/10/19 09:02 Dose: 75 mg Documented by: Glucagon () 1 mg IM .X1 PRN PRN Reason: Hypoglycemia Heparin Sodium (Porcine) (Heparin Na) 5,000 unit SC Q8 [facility] Last Admin: 03/10/19 11:34 Dose: 5,000 unit Documented by: Dextrose (Dextrose 10%-Water) 250 mls @ 999 mls/hr IV .Q16M PRN; Protocol PRN Reason: HYPOGLYCEMIA Sodium Chloride () 250 mls @ 15 mls/hr IV .[id number] PRN PRN Reason: Saline Flush Sodium Chloride () 250 mls @ 15 mls/hr IV .[id number] PRN PRN Reason: Additional IVPB Infusion Insulin Glargine (Lantus (Bkc)) 52 units SC BID [facility] Last Admin: 03/10/19 09:56 Dose: Not Given Documented by: Insulin Human Lispro (Humalog Kwikpen (Bk)) 0 unit SC ACHS [facility]; Protocol Last Admin: 03/10/19 11:34 Dose: 2 units Documented by: Lisinopril (Zestril) 10 mg PO DAILY [facility] Last Admin: 03/10/19 09:03 Dose: 10 mg Documented by: Loratadine (Claritin) 10 mg PO DAILY [facility] Last Admin: 03/10/19 09:03 Dose: 10 mg Documented by: Magnesium Hydroxide (Milk Of Magnesia) 30 ml PO DAILY PRN PRN Reason: Constipation Ondansetron HCl (Zofran) 4 mg IV Q8H PRN PRN PRN Reason: NAUSEA/VOMITING Senna/Docusate Sodium (Senokot-S, Codi-Colace) 2 tablet PO BID PRN PRN Reason: Constipation Last Admin: 03/09/19 12:09 Dose: 2 tablet Documented by: Sodium Chloride () 10 - 40 ml IV UD PRN PRN Reason: SALINE FLUSH Last Admin: 03/08/19 13:18 Dose: 10 ml Documented by: Zolpidem Tartrate (Ambien (Generic)) 5 mg PO QHS PRN PRN PRN Reason: INSOMNIA Discharge Diet: Low fat/ Low Cholesterol Discharge Activity: Return to Normal Activity Home Medications: Medications to take at Discharge Clopidogrel Bisulfate [Clopidogrel] 75 mg PO DAILY 08/14/18 Dulaglutide [Trulicity] 1.5 mg IM QWEEK 08/14/18 Insulin Glargine,Hum.rec.anlog [Basaglar Kwikpen U-100] 42 unit SC BID 08/14/18 Lisinopril [Zestril] 10 mg PO DAILY 08/14/18 Metformin HCl 1,000 mg PO BID 08/14/18 Cilostazol 100 mg PO BID 03/08/19 Aspirin E.C. [Ecotrin] 81 mg PO DAILY@0800 #60 tab 03/10/19 Atorvastatin Calcium [Lipitor] 80 mg PO QHS #60 tab 03/10/19 Carvedilol [Coreg (Beta Katrina)] 3.125 mg PO BID #120 tab 12/30/19 Following Prescrptions Were Given to Patient: Carvedilol [Coreg (Beta Katrina)] 3.125 mg PO BID #120 tab Transmission Status: Received by [facility] #30 Aspirin E.C. [Ecotrin] 81 mg PO DAILY@0800 #60 tab Transmission Status: Received by [facility] #30 Atorvastatin Calcium [Lipitor] 80 mg PO QHS #60 tab Transmission Status: Received by [facility] #[facility] Other Amb Orders: 30-Day Event Recorder [[facility]] Location: None Selected Primary Care Physician: Tristan Denis MD [Primary Care Provider] - Please follow up with your Primary Care Physician in: In 3 to 5 days Please Follow Up With: Chapo Dyson MD When: in 2-3 weeks for outpatient left heart catheterization Disposition: Home Minutes spent on discharge:: 45 Patient Condition:: Stable Medical Necessity - Tobacco Use Smoking Status: Former smoker Meaningful Use Info Meaningful Use Diagnoses (Choose all that apply): Ischemic CVA - CVA Therapy Assessed for PT,OT and/or ST?: Yes - Ischemic Stroke Antithrombotic order at d/c?: Yes Dx of Atrial fib/flutter?: No Statins at discharge?: Yes Primary Dx Acute Ischemic CVA?: Yes IV tPA ordered during stay?: No Reason IV t-PA not ordered: Treatment not Indicated Code Visit Inpatient E&M: 26719 Disch Hosp
[2019-03-10 11:40] LABS: Bedside Glucose 191 mg/dL (70-110)
--- NOTE | 2019-03-10 14:55 | PHA.DC.MC ---
Pharmacy Service has performed discharge medication reconciliation and counseling for this patient. 1. ASPIRIN 81MG PO DAILY 2. ATORVASTATIN 80MG PO QHS 3. CARVEDILOL 3.125 MG PO BID The patient's discharge medication list was reviewed for discrepancies and discrepancies were resolved. Home Medications Clopidogrel Bisulfate [Clopidogrel] 75 mg PO DAILY 08/14/18 Dulaglutide [Trulicity] 1.5 mg IM QWEEK 08/14/18 Insulin Glargine,Hum.rec.anlog [Basaglar Kwikpen U-100] 42 unit SC BID 08/14/18 Lisinopril [Zestril] 10 mg PO DAILY 08/14/18 Metformin HCl 1,000 mg PO BID 08/14/18 Cilostazol 100 mg PO BID 03/08/19 Aspirin E.C. [Ecotrin] 81 mg PO DAILY@0800 #60 tab 03/10/19 Atorvastatin Calcium [Lipitor] 80 mg PO QHS #60 tab 03/10/19 Carvedilol [Coreg (Beta Katrina)] 3.125 mg PO BID #120 tab 03/10/19 The patient was counseled on the following discharge medications and changes in medications for homegoing were reviewed. The Reason for Use, instructions for use, and potential side effects were reviewed for all new medications. The patient's questions regarding all of their medications were answered. The patient was able to verbally demonstrate an understanding of their discharge medications.
--- NOTE | 2019-03-14 15:58 | CASEMGMT ---
LAVERN CRUMP Discharge Follow-Up Phone Call. Tania: Mary Strata: 3 Discharge Date: 03/10/19 Adm Dx: Dysarthria/AMS, ADAN, Hyperglycemia, Abnormal EKG. Call to pt to inquire about how she has been doing since being discharged from the hospital. She states she is doing fine. She states she is just returning home from seeing her PCP Dr Quiroz and that he is ordering her a new kind of glucometer. She also states she was in to [facility] yesterday and had the heart monitor placed. She states her follow-up with Dr Dyson for heart cath is on 03/25. 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 Lilian MCCALL RN, CM
== END 2019-03-10 15:05 | disposition home or self-care (01) | DRG 65 ==
LOC: ED 03-08 02:08 → PCU 03-08 03:16
PROVIDERS: Internal Medicine; Internal Medicine Cardiovascular Disease; Admitting Provider Hospitalist; Emergency Provider Emergency Medicine; Family Provider Family Medicine; PCP Family Medicine; Visit Provider Internal Medicine
DX: I63.9 Cerebral infarction, unspecified (principal); N17.9 Acute kidney failure, unspecified; E87.1 Hypo-osmolality and hyponatremia; I42.9 Cardiomyopathy, unspecified; Z91.19 Patient's noncompliance with other medical treatment and regimen; E11.65 Type 2 diabetes mellitus with hyperglycemia; Z79.4 Long term (current) use of insulin; E78.5 Hyperlipidemia, unspecified; Z87.891 Personal history of nicotine dependence; R29.701 NIHSS score 1; I73.9 Peripheral vascular disease, unspecified; R47.1 Dysarthria and anarthria; I10 Essential (primary) hypertension; I65.22 Occlusion and stenosis of left carotid artery
CPT/HCPCS: 36415; 70450; 70496; 70498; 70544; 70547; 70551; 71046; 80048; 80053; 80061; 80069; 80307; 80320; 81001; 82140; 82962; 83036; 84484; 85025; 85610; 93005; 93306; 99285; J7030; Q9967; A4216; G0480

== ENCOUNTER → 2019-04-08 12:49 | Outpatient (CLI) | payer OTHER, SELFPAY ==
[2019-03-25 13:07] VITALS: BMI 29.7
--- NOTE | 2019-04-08 12:50 | CDU_ITS ---
Reason For Study: CVA Rt. Velocities/BP Lt. Velocities/BP Prox CCA 59.1/12.1 cm/sec. Prox CCA 78.9/17.6 cm/sec. Mid CCA 55.2/14.7 cm/sec. Mid CCA 104.7/23.7 cm/sec. Dist CCA 61.7/17.3 cm/sec. Dist CCA 76.5/17.6 cm/sec. Prox ICA 77.3/20.6 cm/sec. Prox ICA 101.0/31.6 cm/sec. Mid ICA 91.9/24.3 cm/sec. Mid ICA 128.4/33.4 cm/sec. Dist ICA 76.5/24.9 cm/sec. Dist ICA 113.8/35.3 cm/sec. Rt. ICA/CCA = 1.8. Lt. ICA/CCA = 1.2. Prox ECA 326.7/28.6 cm/sec. Prox ECA 174.3/11.1 cm/sec. Rt. Vert. 81.4/16.3 cm/sec. Lt. Vert. 55.3/11.3 cm/sec. Right Extracranial There is heterogeneous, irregular atherosclerotic plaque noted in the right common carotid artery. There is heterogeneous, irregular atherosclerotic plaque noted in the right internal carotid artery. There is heterogeneous, irregular atherosclerotic plaque noted in the right external carotid artery. Antegrade flow is noted in the right vertebral artery. Left Extracranial There is heterogeneous, irregular atherosclerotic plaque noted in the left common carotid artery. There is heterogeneous, irregular atherosclerotic plaque noted in the left internal carotid artery. There is heterogeneous, irregular atherosclerotic plaque noted in the left external carotid artery. Antegrade flow is noted in the left vertebral artery. Procedure Carotid Duplex [id number]. The exam was diagnostic. Exam performed in department. Interpretation Summary Mild (<50%) stenosis right extracranial internal carotid. Moderate (50-69%) stenosis left extracranial internal carotid. Flow within the vertebral arteries is antegrade bilaterally. Ordering Physician: Chapo Dyson Performed By: Darryn Chavez RVT
== END ==
PROVIDERS: Family Provider Family Medicine; PCP Family Medicine; Referring Provider Internal Medicine Cardiovascular Disease; Visit Provider Internal Medicine Cardiovascular Disease
DX: Z86.73 Personal history of transient ischemic attack (TIA), and cerebral infarction without residual deficits (principal)
CPT/HCPCS: 93880

== ENCOUNTER 2019-04-11 06:54 | Day surgery (SDC) | payer OTHER, SELFPAY ==
[2019-03-25 13:07] VITALS: BMI 29.7
--- NOTE | 2019-03-25 15:00 | RAD_ITS ---
STUDY: X-RAY CHEST REASON FOR EXAM: Female, 58 years old. Preheart catheter. TECHNIQUE: Frontal and lateral views of the chest. COMPARISON: 03/08/2019. FINDINGS: The lungs are clear and expanded. There is no demonstrated pleural abnormality. Normal size heart. Implanted laboratory monitor overlies the left heart. Normal mediastinum and lila. Normal visualized pulmonary arteries. Normal visualized aortic arch and descending thoracic aorta. There are diffuse degenerative changes of the visualized thoracic spine. Normal visualized ribs, clavicles, and shoulders. There is no demonstrated abnormality of the visualized soft tissue structures of the upper abdomen. RAD/Chest PA and Lateral IMPRESSION: No acute chest disease. Electronically Signed: Magdy Chávez MD at 17:08 EST , Service support ,
[2019-03-25 17:54] LABS: Hematocrit 39.8 % (37-47); Hemoglobin 12.5 g/dL (12.0-15.0); Mean Corp Hgb Conc 31.4 g/dL (32-36); Mean Corpuscular Hgb 29.6 pg (27.0-32.0); Mean Corpuscular Volume 94.3 fL (81-99); Prothrombin Time (Protime)PT. 12.6 SECONDS (11.7-14.9); Red Blood Count 4.22 M/mm3 (4.2-5.4); White Blood Count 9.2 K/mm3 (4.4-11.0)
[2019-03-25 17:55] LABS: Absolute Lymphocyte Count 1.52 X10^3/uL (0.83-4.51); Absolute Neutrophil Count 6.9 X10^3/uL (2.0-7.7); Basophil# 0.05 X10^3/uL; Basophil% 0.5 % (0-1); Eosinophil# 0.12 X10^3/uL; Eosinophils% 1.3 % (0-5); Lymphocyte # 1.52 X10^3/ul (4.0); Lymphocyte % 16.5 % (19-41); Monocyte# 0.59 X10^3/uL; Monocyte% 6.4 % (0-10); Neutrophil # 6.89 X10^3/uL (2.7-7.7); Neutrophil % 74.8 % (47-70); Platelet Count 302 K/mm3 (150-450); RBC Distribution Width CV 13.5 % (11.6-14.6); RBC Distribution Width SD 46.5 fl (35.1-43.9)
[2019-03-25 17:57] LABS: NRBC Flagged by Analyzer 0 % (0-5)
[2019-03-25 18:42] LABS: Anion Gap 4 (5-15); BUN 24 mg/dL (7-18); BUN/Creat Ratio 24.6 RATIO (10-20); Calcium,Total 9.3 mg/dL (8.5-10.1); Chloride 107 mmol/L (98-107); Creatinine, Serum 0.97 mg/dL (0.55-1.02); EST Glomerular Filtration Rate 62 mL/min (>60); Est Glom Filt Rate - Afr Amer 75 mL/min (>60); Glucose 259 mg/dL (74-106); Potassium 4.2 mmol/L (3.5-5.1); Sodium Level 139 mmol/L (136-145)
[2019-04-10 07:39] VITALS: BMI 29.7
--- NOTE | 2019-04-11 08:52 | CL.D_ITS ---
Patient Name: ADRIAN JOHNSON Study Date: 04/11/2019 Performing: Chapo Dyson MD Ht: 62.99 inches 160 cm : 1960 Wt: 167.55 lbs 76 kg Age: 58 Gender: female BSA: 1.79 PROCEDURE(S) PERFORMED CV61-NTD/COR/LV [id number] RENAL ANGIO WITH HEART CATH CLINICAL PROFILE AND INDICATIONS Indications: Suspected CAD, LV Dysfunction Heart Failure: NYHA Class: 1, Newly Diagnosed: Yes, Heart Failure Type: Systolic Stress/Imaging Stress/Image Study Performed: No Angina Classification Anginal Classification w/in 2 Weeks: No symptoms CAD Presentations: Other: Dyspnea on exertion No Sxs, no angina. Comorbidities/Risk Factors: Hypertension Dyslipidemia Diabetes Mellitus: Diabetes Therapy: Oral CONCLUSIONS Global LV systolic dysfunction- Severe Single vessel CAD of the RCA LV dysfunction is out of proportion to degree of CAD. Increase lisinopril to 40mg po daily,. Increase coreg to 12.5 mg po bid Start lasix 20mg po daily. Manual sheath removal. Cardiac rehab. If no improvement in LV function after maximal medical tx and cardiac rehab, pt will need AICD. F/u with Dr Shannon for PVD. Continue asa/plavix for life given PVD. 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 DESCRIPTION OF PROCEDURE The patient arrived to the procedure lab. The risks and benefits of the procedure as well as a full d escription of our services here and current unavailability of surgical backup were fully explained to the patient and/or their significant other prior to the catheterization. The Timeout was completed, verifying the correct patient and procedure. The patient's procedural site was prepped and draped in the usual fashion. Local anesthetic was given subcutaneously to right groin region with Lidocaine 2%. Using a modified Seldinger technique, arterial access was obtained via the right femoral artery, a 4 Fr 45cm sheath was inserted Left Coronary Artery selective angiography was performed in multiple vie ws using a 4 Fr. JL5 catheter. Right Coronary Artery selective angiography was then performed in mult iple views using a 4 Fr. 3DRC catheter. Left Ventriculography was performed in FOX projection using a 4 Fr. Pigtail catheter. LV to AO pullback pressures were then recorded.The arterial sheath was pulled and manual compression applied until hemostasis is achieved. CORONARY ANGIOGRAPHY DOMINANCE: Right Dominant LEFT HEART ASSESSMENT Left Ventricular Ejection Fraction: by LV Gram 15-20 % Global Hypokinesis - Severe Depressed Left Ventricular systolic function LVEDP: 41 mmHg LEFT MAIN: Mild luminal irregularities less than 30%, post ostial stenotic dilation., Mild calcificat ion LEFT ANTERIOR DESCENDING ARTERY: PROX LAD: Mild luminal irregularities less than 30% CIRCUMFLEX ARTERY: PROX CIRC: Moderate luminal irregularities up to 50% RIGHT CORONARY ARTERY: MID RCA: is occluded COLLATERAL FLOW: Collateral flow from Left to Right PERIPHERAL FINDINGS: Abdominal Aorta: mild descending aortic aneurysm. Diffuse distal aorta and bilateral iliac disease. COMPLICATIONS No Complications PROCEDURE MEDICATIONS Oxygen: 2 L/min via nasal cannula Nitro 200 mcg IC 04/11/2019 08:31:05 SUMMARY OF HEMODYNAMIC DATA Time AIR REST ECG 07:14:18 AO 149/69 (102) SA 08:22:42 LV 169/-1, 42 08:29:42 LV 171/-1, 41 08:29:49 LVp 171/3, 38 08:29:54 AOp 169/72 (112) 08:29:59 Signed By hCapo Dyson MD On 04/11/2019 8:52:47 AM Signed By Chapo Dyson MD On 04/11/2019 8:51:32 AM Chapo Dyson MD
--- NOTE | 2019-04-15 09:21 | PCM.HP.BLA ---
Problem List (1) Cardiomyopathy Status: Acute Comment: EF 30% per echo 03/08/2019 @ [facility] (2) Incomplete left bundle branch block Status: Acute (3) Left ventricular dysfunction Status: Acute (4) Prolonged QT interval Status: Acute (5) Arteriosclerotic cardiovascular disease Status: Chronic Comment: Occluded RCA with diffuse nonobstructive disease in other coronaries: see cath report 04/11/2019 (6) HTN (hypertension) Status: Chronic (7) Hyperlipidemia Status: Chronic (8) Stenosis of infrarenal abdominal aorta due to atherosclerosis Status: Chronic Comment: Severe stenosis per Abd Aortic/IVC Duplex scan done05/03/2018, read by Dr. Juma Shannon History and Physical Date of Admission: 04/11/19 [facility] [place] [address] OFFICE VISIT Date of Service: 03/25/19 MR#: [id number] Acct: [id number] Name: ADRIAN JOHNSON Rep #: [id number] : 1960 Provider: Chapo Dyson MD Age/Sex: 58/F [facility] Status: Signed HPI HPI History of Present Illness Details: The patient is a 58 year old F With hypertension, peripheral vascular disease, status post Ultrasound evaluation of right lower extremity by Dr. Shannon in the recent past,Diabetes which is poorly controlled, unknown cholesterol, no previous known cardiac history, who was asked to see in the hospital in consultation on 03/08/2019. It is unclear whether the patient had angioplasty of her right lower extremity or not. I cannot locate any peripheral vascular angioplasty results.She had been on aspirin and Plavix in the past, but had significant bleeding in her arms and her Plavix was discontinued.Patient is a previous smoker of approximately 60 pack years, quit about 10 years ago. The patient was in normal health up until around 03/07/2019 when she developed progressively worsening fatigue, confusion, dysarthria, and sought medical attention [facility]. In the emergency room she was found to have a blood sugar of 580, and elevated BUN and creatinine as well. She was somewhat confused underwent a CAT scan which was negative for acute bleed. Patient was treated medically with IV fluids and admitted to the floor. Upon further history the patient states that she has had no exertional anginal symptoms but has had progressively worsening fatigue, shortness of breath and dyspnea on exertion over the last several months. It is uncertain whether she has been compliant with her antihypertensive medication of lisinopril. She reports that she is poorly compliant with her insulin and her hemoglobin A1c was 11%. As part of her cardiac work-up she underwent an EKG which showed normal sinus rhythm, incomplete left bundle branch block, and J-point elevation inferiorly and T wave inversion anteriorly in leads I and aVL. This led to a 2D echo with Doppler which was performed 03/08/2019 which demonstrated moderate to severe global LV dysfunction with specific inferior posterior akinesis with an overall ejection fraction approximately 30%. We were unable to quantitate RVSP. Patient states that she has had a viral-like illness over the week prior to admission, but is never had a stress test or a heart catheterization. Her troponins are negative x3. The vascular ultrasound demonstrated possible significant distal aortic stenosis, with nonobstructive bilateral lower extremity occlusive disease, left greater than right by exercise PVRs. ABIs were 0.77 on the right and 0.78 on the left. Patient was to undergo a left heart catheterization however an MRI was performed which demonstrated an ischemic stroke. Patient was treated medically and is here in follow-up. From a cardiac standpoint she denies any chest pain, angina but does complain of shortness of breath and dyspnea on exertion. From a neurological standpoint appears that she is completely recovered, and has no residual deficits. She is taking and tolerating her medicines well. In addition the patient complains of lower extremity claudication symptoms, left lower calf greater than right. In our office today her blood pressure is 100/50, pulse is 112 and regular. Patient has bilateral carotid bruits, 2+ upstroke bilaterally, regular rate and rhythm, normal S1/S2. She has no edema. She has no femoral bruits and 2+ bilateral femoral pulses. She has 2+ DP and PT pulses bilaterally. EKG dated 03/08/2019 shows normal sinus rhythm with lateral T wave inversion and interventricular conduction delay. Lipids dated 03/08/2019 show an LDL of 149 and HDL of 40. Repeat lipids are pending. 30-day event monitor so far showed normal sinus rhythm with rare PVC. Intake Vital Signs 03/25/19 Height 5 ft 3 in 03/25/19 Weight: 168 lb 03/25/19 BMI 29.7 03/25/19 BP 100/50 L 03/25/19 Blood Pressure Location Lt brachial 03/25/19 Position Sitting 03/25/19 Respiration 20 H 03/25/19 Pulse 112 H 03/25/19 Pulse Source Auscultation Intake Visit Reasons: dysrhythmia (okay per LL) Allergies No Known Allergies Allergy (Verified 03/25/19 13:19) Medications Metformin HCl 1,000 mg PO BID 08/14/18 [History Confirmed 03/25/19] aspirin 81 mg tablet,delayed release 81 mg PO DAILY@0800 #90 tab 03/25/19 [Rx Confirmed 03/25/19] atorvastatin 80 mg tablet 80 mg PO QHS #90 tab 03/25/19 [Rx Confirmed 03/25/19] carvedilol 6.25 mg tablet 6.25 mg PO BID #180 tab 03/25/19 [Rx Confirmed 03/25/19] cilostazol 100 mg tablet 100 mg PO BID #90 tab 03/25/19 [Rx Confirmed 03/25/19] clopidogrel 75 mg tablet 75 mg PO DAILY #90 tab 03/25/19 [Rx Confirmed 03/25/19] dulaglutide 1.5 mg/0.5 mL subcutaneous pen injector 1.5 mg SC QWEEK 03/25/19 [History Confirmed 03/25/19] insulin glargine 100 unit/mL (3 mL) subcutaneous pen 52 unit SUBCUT BID ml 03/25/19 [History Confirmed 03/25/19] lisinopril 10 mg tablet 10 mg PO DAILY #90 tab 03/25/19 [Rx Confirmed 03/25/19] [facility] Medical History (Updated 03/25/19 @ 13:15 by Livier Pollock) CVA (cerebral vascular accident) (Acute 03/08/19) Left ventricular dysfunction (Acute) Cardiomyopathy (Acute) Prolonged QT interval (Acute) Incomplete left bundle branch block (Acute) Stenosis of infrarenal abdominal aorta due to atherosclerosis (Chronic) Carotid artery disease (Chronic) Peripheral vascular disease (Chronic) Hyperlipidemia (Chronic) Type 2 diabetes mellitus (Chronic) HTN (hypertension) (Chronic) Altered mental status (Resolved) ADAN (acute kidney injury) (Acute) Abnormal EKG (Acute) Surgical History (Updated 03/25/19 @ 13:19 by Livier Pollock) History of angioplasty of peripheral vessel (Chronic ~2018) Social History (Updated 03/25/19 @ 13:55 by Chapo Dyson MD) Smoking Status: Former smoker ROS Const Const: Negative for fatigue, weakness, body ache, fever(s), headache(s), chills, frequent falls, night sweats, daytime sleepiness, difficulty sleeping, excessive sweating, weight gain, weight loss, increased appetite, poor appetite, anorexia or other Eyes Eyes: Negative for blind spots, loss of peripheral vision, transient loss of vision, blurry vision, change in vision, double vision, floaters, tunnel vision or other ENT ENT: Negative for headache(s), dizziness, hearing loss, tinnitus, Nosebleed/epistaxis, balance problems, post nasal drip, lip swelling, tongue swelling, bleeding gums, hoarseness, neck pain, dry mouth or other Cardio Chest Pain: No Resp Respiratory: Negative for SOB with activity, SOB at rest, SOB orthopnea\SOB lying down, Coughing up blood/hemoptysis, chest congestion, pain on inspiration, snoring, stridor, wheezing, crackles, paroxysmal nocturnal dyspnea or other GI GI: Negative nausea, vomiting, heartburn, constipation, belching, bloating, cramping, vomiting blood/hematemesis, bright, red blood in stools, black,tarry stools, loose stools, Difficulty Swallowing or other : Negative for hematuria, frequent nighttime urination/ nocturia, erectile dysfunction or abnormal vaginal bleeding Musc Musc: Negative for muscle aches/ myalgia, muscle weakness, joint pain or balance problems Skin Skin: Negative redness, non-healing lesions, rash, unusual bruising, skin ulcer, wounds, jaundice or other Neuro Neuro: Negative for dizziness, lightheadedness, near syncope, syncope, orthostatic symptoms, frequent falls, headache(s), weakness, confusion, memory loss, restless legs, blurry vision, double vision, vertigo, seizures, lack of coordination or other Edvin Hematologic/Lymphatic: Negative for easy bleeding, easy bruising, enlarged lymph nodes or other Endo Endo: Negative for fatigue, cold intolerance, heat intolerance, excessive sweating, flushing, increased thirst/drinking, increased hunger, hair loss, hair growth or other Psych Psych: Negative for anxiety, depression, thoughts of harming anyone, thoughts of harming yourself, visual hallucinations, panic attacks or audible hallucinations Allergy Allergy/Immunology: Negative for throat swelling, Negative for tongue swelling, Negative for hives, Negative for rash, Negative for lip swelling Cardiology Exam Const Appearance: cooperative, healthy appearing and no acute distress Nutritional Appearance: well nourished Orientation: alert, oriented x3 and oriented to person Head Head: normal to inspection, normocephalic and atraumatic Nose: external nose normal Face and Sinus: face symmetric Mouth: oral mucosae normal Eyes General: appearance normal, both eyes and all related structures Eyelids: eyelids normal Conjunctivae: conjunctivae normal Pupils: PERRL and normal by confrontation EOM: EOM intact bilaterally Neck Neck: normal visual inspection and full ROM Carotids: normal carotid upstroke and bruit Chest Chest inspection: normal inspection of the chest Auscultation: Bilateral: Clear to Auscultation Cardio Palpation: normal PMI Rate: regular rate Rhythm: regular rhythm Heart sounds: S1 normal and S2 normal GI GI: normal to inspection, no hepatosplenomegaly and bowel sounds present Neuro General: alert, awake, oriented x3, CN's II-XI intact bilaterally and moves all extremities Skin Skin: no rashes or lesions noted Extremities Pulses: Normal: Right Femoral Pulse, Left Femoral Pulse, Right Dorsalis Pedis Pulse, Left Dorsalis Pedis Pulse, Right Posterior Tibial Pulse, Left Posterior Tibial Pulse, Right Radial Pulse, Left Radial Pulse Lower Extremity Edema: None: Bilateral Psych Psychological: normal affect Assessment & Plan 1. Cardiomyopathy I42.9 EF 30% per echo 03/08/2019 @ [facility] Plan 1. Cardiomyopathy: The patient presented with a CVA, superimposed on newly discovered severe LV dysfunction with an EF of 30%. We were going to proceed with a heart catheterization however her MRI detected a CVA and this was postponed for her to recover from her CVA. Since her discharge she has been doing relatively well, denies any exertional anginal symptoms but does complain of dyspnea on exertion and shortness of breath. She has no longer smoking. I recommended that we continue her baby aspirin, Plavix, and increase her Coreg to 6.25 mg p.o. twice daily and continue her lisinopril for her LV dysfunction. In addition I recommended the patient undergo a diagnostic left heart catheterization via the right groin with a long 45 cm sheath protector aortoiliac system against any kind of embolic phenomena. Would also recommend an exchange length J-wire to avoid repetitive passages across her aortic root and arch. The risk/benefits of the cardiac catheterization procedure were thoroughly explained the patient including specific attention to lack of onsite surgical backup, and informed consent was obtained. In addition she will continue her 30-day event monitor to completion. No atrial fibrillation detected on this event monitor. Orders Orders: 12 Lead EKG performed by [facility] Today Left Heart Cath/COR/LV Percut 2 Weeks Basic Metabolic Profile (BMP) Today Prothrombin Time w/INR Today CBC W/Diff, Automated Today Chest PA and Lateral Today 2. Carotid artery disease I73.9 Calcified peribulbar hard plaque with approximately 40% diameter narrowing in right common carotid per neck CTA03/10/19 Plan 2. Carotid artery disease: The patient has bilateral carotid artery stenosis and carotid artery disease detected by CTA of her head and neck. Recommend an ultrasound of her bilateral carotids to determine if she requires any kind of surgical intervention. Would recommend continuing aspirin, Plavix and Pletal for her lower extremity claudication symptoms. Orders Orders: Carotid Duplex Ultrasound Today 3. Hyperlipidemia E78.5 Plan 3. Hyperlipidemia: Recommend continuing her aggressive LDL reduction with Lipitor 80 mg p.o. nightly. Repeat lipids are pending in 2 weeks time. 4. Return office in 6 months. This note was generated using a voice recognition system and there may be incorrect words, spelling or punctuation that were not noted when reviewing the office note prior to saving. Plan Detail Other Orders Orders: Basic Metabolic Profile (BMP) Today I51.9 Prothrombin Time w/INR Today I51.9 CBC W/Diff, Automated Today I51.9 Chest PA and Lateral Today I51.9 Lipid Profile 2 Weeks E78.00 Liver Profile 2 Weeks E78.00 Other Medications New: cilostazol 100 mg PO BID 90 tabs 3RF Check with primary doctor clopidogrel 75 mg PO DAILY 90 tabs 3RF blood thinner lisinopril 10 mg PO DAILY 90 tabs 3RF BP carvedilol must administer with a meal/food 6.25 mg PO BID 180 tabs 3RF Refilled: aspirin 81 mg PO DAILY@0800 90 tabs 3RF atorvastatin 80 mg PO QHS 90 tabs 3RF Follow Up +6M (Dyson) Coding Level of Care Code Off vis,est,level 3 Diagnoses Cardiomyopathy I42.9 Carotid artery disease I73.9 Hyperlipidemia E78.5 Coding Level of Care Code Off vis,est,level 3 Diagnoses Cardiomyopathy I42.9 Carotid artery disease I73.9 Hyperlipidemia E78.5 Supplemental Info Supplemental Information Labs LDL Cholesterol 149 mg/dL (0-130) H 03/08/19 HDL Cholesterol 40 mg/dL (40-) 03/08/19 Triglycerides 394 mg/dL (-199) H 03/08/19 VLDL Cholesterol 79 mg/dL (5-40) H 03/08/19 Diagnostics Electrocardiogram 03/08/19 Echocardiogram 03/08/19 Chest X-Ray 03/07/19 03/25/19 [id number] <Electronically signed by Chapo Dyson MD> Date Chapo Dyson MD Cosigner Signature: Date (if applicable) CC: Tristan Quiroz MD ~ Interventional cardiology addendum: The patient's was seen and examined prior to the procedure, no interim changes noted.The risk/benefits of the procedure were thoroughly explained to the patient and informed consent was obtained. Cardiac catheterization to follow.
== END 2019-04-11 13:00 | disposition home or self-care (01) ==
LOC: CLSP 06:55
PROVIDERS: Family Provider Family Medicine; PCP Family Medicine; Referring Provider Internal Medicine Cardiovascular Disease; Visit Provider Internal Medicine Cardiovascular Disease
DX: I25.10 Atherosclerotic heart disease of native coronary artery without angina pectoris (principal); I42.9 Cardiomyopathy, unspecified; E11.51 Type 2 diabetes mellitus with diabetic peripheral angiopathy without gangrene; E78.5 Hyperlipidemia, unspecified; I10 Essential (primary) hypertension; I70.0 Atherosclerosis of aorta; I44.7 Left bundle-branch block, unspecified; Z86.73 Personal history of transient ischemic attack (TIA), and cerebral infarction without residual deficits; Z91.19 Patient's noncompliance with other medical treatment and regimen; Z79.4 Long term (current) use of insulin; Z79.82 Long term (current) use of aspirin; Z79.84 Long term (current) use of oral hypoglycemic drugs; Z79.899 Other long term (current) drug therapy; Z87.891 Personal history of nicotine dependence
CPT/HCPCS: 36415; 71046; 75625; 80048; 85025; 85610; 93458; J7040; C1769; C1894; Q9967

== ENCOUNTER → 2019-05-03 09:57 | Outpatient (CLI) | payer OTHER, SELFPAY ==
[2019-04-22 13:25] VITALS: BMI 29.7
[2019-05-03 10:53] LABS: Anion Gap 6 (5-15); BUN 24 mg/dL (7-18); BUN/Creat Ratio 22.9 RATIO (10-20); Calcium,Total 8.6 mg/dL (8.5-10.1); Chloride 106 mmol/L (98-107); Creatinine, Serum 1.05 mg/dL (0.55-1.02); EST Glomerular Filtration Rate 57 mL/min (>60); Est Glom Filt Rate - Afr Amer 69 mL/min (>60); Glucose 208 mg/dL (74-106); Magnesium 1.2 mg/dL (1.6-2.6); Potassium 4.8 mmol/L (3.5-5.1); Sodium Level 138 mmol/L (136-145)
== END ==
PROVIDERS: Internal Medicine Cardiovascular Disease; PCP Family Medicine; Referring Provider Family Medicine; Visit Provider Family Medicine
DX: I42.9 Cardiomyopathy, unspecified (principal); I49.3 Ventricular premature depolarization
CPT/HCPCS: 36415; 80048; 83735

== ENCOUNTER → 2019-05-03 13:21 | Outpatient (CLI) | payer OTHER, SELFPAY ==
[2019-04-22 13:25] VITALS: BMI 29.7
== END ==
PROVIDERS: PCP Family Medicine; Visit Provider Family Medicine
DX: R19.7 Diarrhea, unspecified (principal)
CPT/HCPCS: 87493; 87506

== ENCOUNTER 2019-07-02 16:43 | Inpatient (IN) | payer OTHER, SELFPAY ==
[2019-05-15 08:13] VITALS: BMI 29.7
[2019-07-02] VITALS (11 sets, daily range): BP systolic 70–118; BP diastolic 47–87; PULSE 85–103; RESP 18–20; TEMP 36.4–36.8; O2SAT 96–97; BMI 33.6; BMI 30.1
--- NOTE | 2019-07-02 17:00 | EKG12_ITS ---
Test Reason : SYNCOPE Blood Pressure : / mmHG Vent. Rate : 101 BPM Atrial Rate : 101 BPM P-R Int : 144 ms QRS Dur : 114 ms QT Int : 378 ms P-R-T Axes : 031 051 116 degrees QTc Int : 490 ms AGE AND GENDER SPECIFIC ECG ANALYSIS Sinus tachycardia Incomplete left bundle branch block Consider right ventricular involvement in acute inferior infarct Abnormal ECG Confirmed by AMMY LASSITER, UNA ([id number]), web editor ILEANA FLORES ([id number]) on 07/07/2019 10:55:38 AM Referred By: JANAK Confirmed By:SANDRA GIMENEZ MD
--- NOTE | 2019-07-02 17:08 | ED.DCSUM_ITS ---
History of Present Illness Chief Complaint: Syncope Informant: Patient Onset: Today Narrative: Patient presents by EMS from [facility] due to a syncopal episode. Reports walking felt warm lightheaded and nauseated and passed out. No chest pains or shortness of breath. No palpitations or racing heart. Denies any injuries. No headache neck or back pain. States had one emesis, currently denies any nausea symptoms. Reports having diarrhea since her hospitalization in March has been intermittent, has follow-up with her PCP reports that stool studies in April that were negative. Last loose stools was this morning. She states she is tolerating p.o. intake. No abdominal pain. No urinary symptoms. EMS reports blood glucose 326, she has history of diabetes. Reports was hospitalized March due to a bad heart, reports had a heart cath by Dr. Dyson, reports being reevaluated in October for potential AICD. She states she is on medications for her heart which she does not know the names. She states she did not have any stenting of her heart during the cath. Review of records, patient noted have a CVA ischemic in February with findings of cardiomyopathy with EF of 30%. Follow-up with a diagnostic cath April 11, 2019, noting EF of 15 to 20%, 30% LAD, 50% left circumflex, there is total occlusion of mid right coronary with collaterals. Patient had her lisinopril increased to 40, Coreg 12.5 mg, Lasix 20 mg daily. She is on aspirin and Plavix . In addition May 03, noted C. difficile and stool cultures were all negative. Prior similar symptoms: No Past Medical History - Allergies and Home Meds Allergies/Adverse Reactions: Allergies No Known Allergies Allergy (Verified 04/22/19 13:25) Primary Care Physician: Tristan Quiroz MD [STAFF PHYSICIAN] - Prior records reviewed: Yes Past Medical History: - - Cardiomyopathy, CVA, hypertension, hyperlipidemia, diabetes, peripheral vascular disease Surgical History: no surgical history Smoking Status: Former smoker - Family History Maternal Family History: Reports: No pertinent history Paternal Family History: Reports: No pertinent history Review of Systems General: Denies: Chills, Fever, Sweats Eyes: Denies: Visual changes - bilaterally, Diplopia ENT: Denies: Rhinorrhea, Sore throat Cardiovascular: Denies: Chest pain, Palpitations Respiratory: Denies: Dyspnea, Cough, Dyspnea on exertion Gastrointestinal: Denies: Abdominal pain, Nausea, Vomiting, Diarrhea, Melena, Hematochezia Genitourinary: Denies: Dysuria, Hematuria, Frequency Musculoskeletal: Denies: Back pain, Extremity Pain Skin: Denies: Rash, Wounds Neurological: Denies: Headache, Weakness, Numbness Physical Exam Vital Signs/Narrative: Vital Signs Temp Pulse Resp BP Pulse Ox 07/02/19 16:47 103 H 18 96 07/02/19 16:44 98.2 F 102 H 18 81/54 L 96 Inital Vital Signs reviewed: Yes General: Well nourished, Well developed, No Acute Distress Head: Normocephalic, Atraumatic Eyes: Perrl, EOMI ENT: Moist mucous membranes, No rhinorrhea, - - Mild dry mucosal membranes Neck: Supple, Nontender Cardiovascular: Regular rate, Regular rhythm, No murmurs, - - Heart rate 100 Respiratory: No distress, CTA bilaterally, Chest nontender Abdomen: Soft, Nontender, Nondistended, Normal bowel sounds Back: Nontender, Normal Inspection Extremities: Nontender, No edema Skin: Normal color, No rash Neurological: Alert, Oriented x3, Cranial nerves II-XII grossly intact, Normal Strength, Normal Sensation Psychological: Normal affect, Normal Mood Diagnostic/Tx/Re-eval Clinical Impression(s) from Imaging Studies Chest X-Ray 07/02/19 17:10 IMPRESSION: No acute cardiopulmonary findings Electronically Signed: Pool Neville, at 17:36 EDT Tel , Service support , Abnormal Lab Results 07/02/19 07/02/19 07/02/19 16:55 16:55 16:55 WBC 7.3 RBC 4.21 Hgb 12.5 Hct 39.1 MCV 92.9 MCH 29.7 MCHC 32.0 RDW Std Deviation 47.5 H RDW Coeff of Jessica 14.0 Plt Count 244 MPV 11.5 Immature Gran % (Auto) 0.400 Neut % (Auto) 64.6 Lymph % (Auto) 24.5 [place] % (Auto) 8.1 Eos % (Auto) 2.0 Baso % (Auto) 0.4 Absolute Neuts (auto) 4.7 Absolute Lymphs (auto) 1.79 Nucleated RBC % 0 PT 12.0 INR 0.9 APTT 31.3 Sodium 136 Potassium 4.3 Chloride 102 Carbon Dioxide 24.0 Anion Gap 10 BUN 50 H Creatinine 1.76 H Estim Creat Clear Calc 28.47 Est GFR (MDRD) Af Amer 38 L Est GFR (MDRD) Non-Af 31 L BUN/Creatinine Ratio 28.4 H Glucose 239 H Calcium 9.2 Magnesium 1.5 L Troponin I 0.075 H - EKG Initial EKG Interpretation: Sinus Rhythm - Sinus rhythm rate of 101, ST depressions noted on 1 and aVL, no elevations. T wave inversions on 1 and aVL, QTC 490. - Medical Decision Making Patient nontoxic, afebrile blood pressure systolic 80s on arrival. With her reported history of intermittent chronic diarrhea with low blood pressure, concerns of possible orthostatic syncope. However patient does have recent cardiomyopathy with low EF puts her at risk for cardiac dysrhythmias. EKG no ST depressions extreme lateral leads however this is similar compared to EKG back in February. She has no chest pains or shortness of breath. From records had a negative stool studies including C. difficile the end of April. She is given gentle IV fluids due to her cardiomyopathy history with continued maintenance. Blood pressure responding to fluids, improved on recheck. Labs did note slight acute kidney injury compared to old labs, magnesium 1.5, troponin elevated at 0.075. Reevaluation remains stable, she did take her anticoagulant medications today. Due to her medical history with cardiomyopathy, I do feel she will benefit from inpatient management, hospitalist is on page for discussion for admission. 184: I spoke with Dr. Alcantar for admission. We will try to obtain stools is available in the ED, she will plan on replacing magnesium as an inpatient. ED Disposition - Plan for ED Patient: Disposition: [facility] Care [facility] Diagnosis: ADAN (acute kidney injury), Syncope, Dehydration, Elevated troponin Referrals: Tristan Quiroz MD [STAFF PHYSICIAN] -
--- NOTE | 2019-07-02 17:10 | RAD_ITS ---
STUDY: X-RAY CHEST REASON FOR EXAM: Female, 58 years old. Syncope TECHNIQUE: Single frontal view of the chest. COMPARISON: 03/25/2019 FINDINGS: Hardware overlies the left midlung. Cardiac silhouette unremarkable. Pulmonary vascularity unremarkable. Aorta unremarkable. No focal airspace opacities. No pleural effusions. Upper abdomen unremarkable. Osseous structures intact. No pneumothorax. RAD/Chest 1 View (Portable) IMPRESSION: No acute cardiopulmonary findings Electronically Signed: Pool Neville, at 17:36 EDT Tel , Service support ,
--- NOTE | 2019-07-02 17:20 | NURSING ---
DR STOKES AWARE OF BP 70/60. IV FLUIDS RUNNING
[2019-07-02 17:25] LABS: Absolute Lymphocyte Count 1.79 X10^3/uL (0.83-4.51); Absolute Neutrophil Count 4.7 X10^3/uL (2.0-7.7); Basophil# 0.03 X10^3/uL; Basophil% 0.4 % (0-1); Eosinophil# 0.15 X10^3/uL; Hematocrit 39.1 % (37-47); Hemoglobin 12.5 g/dL (12.0-15.0); International Normalized Ratio 0.9; Lymphocyte # 1.79 X10^3/ul (4.0); Lymphocyte % 24.5 % (19-41); Mean Corpuscular Hgb 29.7 pg (27.0-32.0); Mean Corpuscular Volume 92.9 fL (81-99); Mean Platelet Vol. 11.5 fl (6.2-12.0); Monocyte# 0.59 X10^3/uL; Monocyte% 8.1 % (0-10); NRBC Flagged by Analyzer 0 % (0-5); Neutrophil # 4.73 X10^3/uL (2.7-7.7); Neutrophil % 64.6 % (47-70); Partial Thromboplast Time 31.3 Seconds (24.1-36.2); Platelet Count 244 K/mm3 (150-450); RBC Distribution Width SD 47.5 fl (35.1-43.9); Red Blood Count 4.21 M/mm3 (4.2-5.4); White Blood Count 7.3 K/mm3 (4.4-11.0)
[2019-07-02 17:29] LABS: Anion Gap 10 (5-15); BUN 50 mg/dL (7-18); BUN/Creat Ratio 28.4 RATIO (10-20); Calcium,Total 9.2 mg/dL (8.5-10.1); Chloride 102 mmol/L (98-107); Creatinine, Serum 1.76 mg/dL (0.55-1.02); EST Glomerular Filtration Rate 31 mL/min (>60); Est Glom Filt Rate - Afr Amer 38 mL/min (>60); Estimated Creatinine Clearance 28.47 ml/min; Glucose 239 mg/dL (74-106); Magnesium 1.5 mg/dL (1.6-2.6); Potassium 4.3 mmol/L (3.5-5.1); Sodium Level 136 mmol/L (136-145)
[2019-07-02] MEDS: 0.9% Normal Saline 1,000 ML 150 ML IV (18:31)
--- NOTE | 2019-07-02 18:45 | HP.PCM_ITS ---
Problem List (1) Hypotension Status: Acute Qualifiers: Hypotension type: unspecified hypotension type Qualified Code(s): I95.9 - Hypotension, unspecified (2) Syncope Status: Acute Qualifiers: Syncope type: unspecified Qualified Code(s): R55 - Syncope and collapse (3) Diarrhea Status: Chronic Qualifiers: Diarrhea type: unspecified type Qualified Code(s): R19.7 - Diarrhea, unspecified (4) CVA (cerebral vascular accident) Status: Chronic Qualifiers: CVA mechanism: unspecified Qualified Code(s): I63.9 - Cerebral infarction, unspecified Comment: Ischemic (5) Left ventricular dysfunction Status: Chronic (6) Stenosis of infrarenal abdominal aorta due to atherosclerosis Status: Chronic Comment: Severe stenosis per Abd Aortic/IVC Duplex scan done05/03/2018, read by Dr. Juma Shannon (7) Carotid artery disease Status: Chronic Qualifiers: Carotid artery disease type: unspecified Laterality: unspecified laterality Qualified Code(s): I77.9 - Disorder of arteries and arterioles, unspecified Comment: Calcified peribulbar hard plaque with approximately 40% diameter narrowing in right common carotid per neck CTA03/10/19 (8) Peripheral vascular disease Status: Chronic Comment: Per bilateral lower extremity study done 04/01/2018 @ [facility]; read by Dr. 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 The patient is a 58 y/o F w/ PMHx: CAD, PVD, Cardiomyopathy ( ECHO EF 30%), Hx CVA 02/2019, HTN, HLD, Abdominal aortic atenosis, Diabetes mellitus type II following w/ Dr. Bentley, Former Tobacco use who presents to the [facility] ED on 07/02/19 with history of being at [employer] attempting to shop with onset lightheadedness, dizziness with diaphoresis in addition to nausea with emesis x1 with syncopal event with no associated chest pain, dyspnea, palpitations or racing heart at that time with no trauma upon fall. She states that she has been having intermittent loose stools since March and followed up with her primary care physician with unremarkable stool studies performed in April. She does state that she had a similar event with lightheadedness and dizziness with nausea and emesis on Sunday as well but was able to rest and this improved. She notes that she has been having more of these types of events and she was placed on all these medications following her stroke in February and findings in March on her catheterization. Patient had been admitted in March and at that time had cardiac catheterization with nonobstructive disease but significant cardiomyopathy with planned upcoming October AICD placement. Work-up in the ED included T 90.2, heart rate 102 initially, BP 81/54 initially however decreasing to 70/60 while in the ED, respiratory rate 18, 96% on room air, CBC unremarkable, coags unremarkable, BMP with BUN/creatinine 50/1.76, glucose 239, magnesium 1.5, troponin 0.075, chest x-ray with no acute cardiopulmonary findings, EKG with sinus rhythm with ST depressions noted in 1 and aVL, T wave inversions in 1 and aVL similar to prior. In the ED patient ministered IV fluids. Past Medical History Past Medical History (Chronic Problems): Chronic Problems (Last Reviewed 05/15/19 @ 08:[address] Howie Bentley MD) Diarrhea (Chronic) Arteriosclerotic cardiovascular disease (Chronic) Occluded RCA with diffuse nonobstructive disease in other coronaries: see cath report 04/11/2019 History of left heart catheterization (Chronic 04/11/19) Global LV systolic dysfunction- Severe, EF 15-20%; Single vessel CAD of the RCA(occluded: tx medically). LV dysfunction is out of proportion to degree of CAD. LVEDP: 41 mmHg; LEFT MAIN: Mild luminal irregularities less than 30%, post ostial stenotic dilation., Mild calcification; LEFT ANTERIOR DESCENDING ARTERY: PROX LAD: Mild luminal irregularities less than 30%; CIRCUMFLEX ARTERY: PROX CIRC: Moderate luminal irregularities up to 50%; RIGHT CORONARY ARTERY: MID RCA: is occluded; COLLATERAL FLOW: Collateral flow from Left to Right; PERIPHERAL FINDINGS:Abdominal Aorta: mild descending aortic aneurysm. Diffuse distal aorta and bilateral iliac disease. If no improvement in LV function after maximal medical tx and cardiac rehab, pt will need AICD. F/u with Dr Shannon for PVD. Continue asa/plavix for life given PVD. CVA (cerebral vascular accident) (Chronic 03/08/19) Ischemic Left ventricular dysfunction (Chronic) Stenosis of infrarenal abdominal aorta due to atherosclerosis (Chronic) Severe stenosis per Abd Aortic/IVC Duplex scan done05/03/2018, read by Dr. Juma Shannon Carotid artery disease (Chronic) Calcified peribulbar hard plaque with approximately 40% diameter narrowing in right common carotid per neck CTA03/10/19 Peripheral vascular disease (Chronic) Per bilateral lower extremity study done 04/01/2018 @ [facility]; read by Dr. Darian Collazo Hyperlipidemia (Chronic) Type 2 diabetes mellitus (Chronic) HTN (hypertension) (Chronic) Medical History: Medical History (Last Reviewed 05/15/19 @ 08:[address] Howie Bentley MD) Arteriosclerotic cardiovascular disease (Chronic) I25.10 Occluded RCA with diffuse nonobstructive disease in other coronaries: see cath report 04/11/2019 CVA (cerebral vascular accident) (Acute) Onset Date: 03/08/19 I63.9 Ischemic Left ventricular dysfunction (Acute) I51.9 Cardiomyopathy (Acute) I42.9 EF 30% per echo 03/08/2019 @ [facility] Prolonged QT interval (Acute) R94.31 Incomplete left bundle branch block (Acute) I44.7 Stenosis of infrarenal abdominal aorta due to atherosclerosis (Chronic) I70.0 Severe stenosis per Abd Aortic/IVC Duplex scan done05/03/2018, read by Dr. Juma Shannon Carotid artery disease (Chronic) I73.9 Calcified peribulbar hard plaque with approximately 40% diameter narrowing in right common carotid per neck CTA03/10/19 Peripheral vascular disease (Chronic) I73.9 Per bilateral lower extremity study done 04/01/2018 @ [facility]; read by Dr. Darian Collazo Hyperlipidemia (Chronic) E78.5 Type 2 diabetes mellitus (Chronic) E11.9 HTN (hypertension) (Chronic) I10 Altered mental status (Resolved) R41.82 ADAN (acute kidney injury) (Acute) N17.9 Abnormal EKG (Acute) R94.31 Allergies No Known Allergies Allergy (Verified 04/22/19 13:25) Home Medications: Ambulatory Orders Medication Instructions Recorded Metformin HCl 1,000 mg PO BID 08/14/18 clopidogrel 75 mg tablet 75 mg PO DAILY #90 tab 03/25/19 Aspirin [Low Dose Aspirin EC] 81 mg PO DAILY@0800 07/02/19 Atorvastatin Calcium [Lipitor] 80 mg PO QHS 07/02/19 Carvedilol 12.5 mg PO BID 07/02/19 Cilostazol 100 mg PO BID 07/02/19 Dulaglutide [Trulicity] 1.5 mg PO SA 07/02/19 Furosemide [Lasix] 20 mg PO DAILY 07/02/19 Insulin Glargine,Hum.rec.anlog 52 unit SQ BID 07/02/19 [Basaglar Kwikpen U-100] Lisinopril 20 mg PO DAILY 07/02/19 Magnesium Oxide 400 mg PO BID 07/02/19 Omeprazole Magnesium [Prilosec Otc] 40 mg PO DAILY PRN PRN 07/02/19 Surgical History: Surgical History (Last Reviewed 04/22/19 @ 14:[address] Howie Bentley MD) History of left heart catheterization (Chronic) Onset Date: 04/11/19 Z98.890 Global LV systolic dysfunction- Severe, EF 15-20%; Single vessel CAD of the RCA(occluded: tx medically). LV dysfunction is out of proportion to degree of CAD. LVEDP: 41 mmHg; LEFT MAIN: Mild luminal irregularities less than 30%, post ostial stenotic dilation., Mild calcification; LEFT ANTERIOR DESCENDING ARTERY: PROX LAD: Mild luminal irregularities less than 30%; CIRCUMFLEX ARTERY: PROX CIRC: Moderate luminal irregularities up to 50%; RIGHT CORONARY ARTERY: MID RCA: is occluded; COLLATERAL FLOW: Collateral flow from Left to Right; PERIPHERAL FINDINGS:Abdominal Aorta: mild descending aortic aneurysm. Diffuse distal aorta and bilateral iliac disease. If no improvement in LV function after maximal medical tx and cardiac rehab, pt will need AICD. F/u with Dr Shannon for PVD. Continue asa/plavix for life given PVD. History of angioplasty of peripheral vessel Onset Date: ~[address] Z98.[address] 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 Tobacco Use: Non-smoker Alcohol: None Drugs: None - *Family History Maternal History Items: Cancer, Diabetes, High Cholesterol, Heart Disease, Hypertension Paternal History Items: Cancer, Diabetes, High Cholesterol, Heart Disease, Hypertension Review of Systems Constitutional: Reports: Malaise, Weakness, Fatigue. Denies: Anorexia, Chills, Fever, Weight Change HEENT: Denies: Head Aches, Sinus Congestion, Sinus Drainage Cardiovascular: Reports: Light Headedness, Syncope. Denies: Chest Pain, Chest Pressure, Chest Tightness, Orthopnea, Palpitations Respiratory: Denies: Cough, Shortness of Breath, Shortness of breath at rest, Shortness of breath upon exertion, Sputum production Gastrointestinal: Reports: Diarrhea, Dyspepsia, Nausea, Vomiting. Denies: Ab dominal Pain Genitourinary: Denies: Dysuria Musculoskeletal: Reports: Joint Pain. Denies: Joint Tenderness Skin: Denies: Rash, Wounds Neurological: Denies: Numbness, Tingling, Focal weakness Psychiatric: Denies: Anxiety, Depression, Homicidal Ideations, Suicidal Ideations Hematologic/ Lymphatic: Reports: Easy Bruising, Easy Bleeding VTE Information - Inpt Only VTE Present on Admission: No VTE Mechan Device Prophylaxis: SCD's VTE Pharm Prophylaxis ordered?: Yes Patient Problems: Active and Suspected Problems (Last Reviewed 05/15/19 @ 08:[address] Howie Bentley MD) Syncope (Acute) Dehydration (Acute) Elevated troponin (Acute) Hypotension (Acute) ADAN (acute kidney injury) (Acute) Subjective: Patient seated upright in the ED, fatigued appearance, notes somewhat improved since ED presentation with IV fluids. Objective: Physical Examination: General: awake, alert, oriented x 3 and cooperative, seated upright in the ED bed, improved she notes since initial ED presentation, eating a meal. Skin: normal color, turgor, no icterus, cyanosis. HEENT: AT/NC, EOMI, PERRLA, MMM, no carotid bruits or JVD noted. Lungs: CTA bilaterally, moderate effort, mild decrease BL bases, no rales, ronchi or wheezing. Heart: Regular rate and rhythm; no gallop, rub audible. Abdomen: soft, obese, NTTP, ND, normal BS, no HSM. Extremities: no cyanosis, clubbing, or edema. Neurological: patient awake, alert, oriented x 3; cognitive function appears baseline intact; pupils equally reactive to light and accomodation; cranial nerves II-XII grossly normal, moving all 4 extremities, no focal deficits, strength moderately global decrease secondary to acute presentation and recent events. Psychiatric: affect appears fatigued, no acute evidence of depressive or anxiety feelings. - Physical Exam Vitals/I&O's: Vital Signs Temp Pulse Resp BP Pulse Ox 98.2 F 85 18 99/87 H 97 07/02/19 16:44 07/02/19 18:28 07/02/19 18:28 07/02/19 18:28 07/02/19 18:28 Oxygen Delivery Method Room Air Weight: 189 lb 13.088 oz Body Mass Index (BMI) 33.6 Finger Stick Blood Glucose 434 Intake and Output for Last 24 Hours 06/30/19 07/01/19 07/02/19 23:59 23:59 23:59 Intake Total 500 / 500 Balance 500 / 500 Laboratory Results 07/02/19 16:55: WBC 7.3, RBC 4.21, Hgb 12.5, Hct 39.1, MCV 92.9, MCH 29.7, MCHC 32.0, RDW Std Deviation 47.5 H, RDW Coeff of Jessica 14.0, Plt Count 244, MPV 11.5, Immature Gran % (Auto) 0.400, Neut % (Auto) 64.6, Lymph % (Auto) 24.5, [place] % (Auto) 8.1, Eos % (Auto) 2.0, Baso % (Auto) 0.4, Absolute Neuts (auto) 4.7, Absolute Lymphs (auto) 1.79, Nucleated RBC % 0 07/02/19 16:55: PT 12.0, INR 0.9, APTT 31.3 07/02/19 16:55: Sodium 136, Potassium 4.3, Chloride 102, Carbon Dioxide 24.0, Anion Gap 10, BUN 50 H, Creatinine 1.76 H, Estim Creat Clear Calc 28.47, Est GFR (MDRD) Af Amer 38 L, Est GFR (MDRD) Non-Af 31 L, BUN/Creatinine Ratio 28.4 H, Glucose 239 H, Calcium 9.2, Magnesium 1.5 L, Troponin I 0.075 H Current Medications Sodium Chloride () 1,000 mls @ 150 mls/hr IV .[id number] [facility] Last Admin: 07/02/19 18:31 Dose: 150 mls/hr Documented by: Assessment/Plan All Active Problems (Last Reviewed 05/15/19 @ 08:[address] Howie Bentley MD) Syncope (Acute) Dehydration (Acute) Elevated troponin (Acute) Hypotension (Acute) Cardiomyopathy (Acute) Prolonged QT interval (Acute) Incomplete left bundle branch block (Acute) Dysarthria (Acute) Altered mental status (Resolved) ADAN (acute kidney injury) (Acute) Abnormal EKG (Acute) The patient is a 58 y/o F w/ PMHx: CAD, PVD, Cardiomyopathy ( ECHO EF 30%), Hx CVA 02/2019, HTN, HLD, Abdominal aortic atenosis, Diabetes mellitus type II following w/ Dr. Bentley, Former Tobacco use who presents to the [facility] ED on 07/02/19 with history of being at [employer] attempting to shop with onset lightheadedness, dizziness in addition to nausea with emesis x1 with syncopal event with no associated chest pain, dyspnea, palpitations or racing heart at that time with no trauma upon fall. 1. Syncopal Event with hypotension indeterminate cardiac enzyme: Patient syncope secondary to hypotension with acute kidney injury concurrently likely secondary to ongoing GI losses with loose stools and diarrhea in addition to lactic regimen. Work-up in the ED included T 90.2, heart rate 102 initially, BP 81/54 initially however decreasing to 70/60 while in the ED, respiratory rate 18, 96% on room air, CBC unremarkable, coags unremarkable, BMP with BUN/creatinine 50/1.76, glucose 239, magnesium 1.5, troponin 0.075, chest x-ray with no acute cardiopulmonary findings, EKG with sinus rhythm with ST depressions noted in 1 and aVL, T wave inversions in 1 and aVL. Will admit to PCU, continue judicious hydration, place on a monitored bed to assure no acute myocardial infarction with serial cardiac enzymes and EKGs. Will maintain on fall precautions, given history of fall and unclear if she had her head although no headache or discomfort given to patient is on multiple antiplatelet regimens will obtain CT head, obtain admission orthostatic and AM orthostatic, cycle cardiac enzymes and repeat EKG in a.m. Mag 1.5, will supplement. Recent carotid US 03/31 w/ mild (<50%) stenosis right extracranial internal carotid. Moderate (50-69%) stenosis left extracranial internal carotid, flow within the vertebral arteries is antegrade bilaterally thus will defer repeat. 2. Acute kidney injury: Secondary to diuretic therapy, poor intake, associate with acute presentation as noted. Admission BUN/Cr 50/1.76, prior baseline creatinine noted to be 0.6 previously. Will judiciously hydrate given cardiomyopathy with reduced EF, hold nephrotoxic medications and repeat chemistry in AM. If no improvement would plan FeNa and renal ultrasound assessment. 3. Chronic diarrhea: Ongoing, likely contributing to her acute presentation, will place on antidiarrheal regimen, recent 05/03/19 enteric pathology. Will request O+A additionally. 4. CAD: 03/[address] Dyson with EF of 15 to 20%, 30% LAD, 50% left circumflex, there is total occlusion of mid right coronary with collat erals, will continue patient aspirin, Plavix, Pletal, holding Coreg and lisinopril given acute presentation with hypotension, continue statin therapy. 5. Cardiomyopathy, Unclear Type: CVA evaluation in 02/2019 echocardiogram obtained with at that time noted EF of 30%. Planned re-evaluation 10/2019 for possible AICD needs. 6. Hx CVA: Ischemic, will continue aspirin, Plavix, continue statin and h ypertensive regimen as well as diabetic regimen, encourage continued follow-up with Dr. Bentley.. 7. PVD: Continue aspirin, Plavix, Pletal, following with Dr. Shannon outpatient, continue statin and hypertensive regimen as well as diabetic regimen. 8. Diabetes mellitus type II: Hold oral home regimen, continue home insulin regimen, ADA diet, accu checks w/ ISS. 9. Hyperlipidemia: Continue home statin regimen. 10. Former Tobacco use: Encouraged continued tobacco cessation. 11. DVT prophylaxis: SCDs, heparin if CT head unremarkable. 12. CODE status: Patient does not have HCPOA nor living will. Discussed CODE status at length including difference between FULL code, DNR-CCA and DNR-CC status. Following discussions about the differences in these status, requested Full Code status. Advanced Care Planning Face to Face Time: 16 minutes. Inpatient E&M: 78541 Init Hosp L3 Procedures: 97399 Advncd Care Plan 30 Min
--- NOTE | 2019-07-02 19:45 | NURSING ---
INCONT PROTOCOL APPLIED. PT IMPULSIVE STANDING AT SIDE OF BED MULTIPLE TIMES AFTER BEING ASKED TO WAIT FOR RN'S ASSISTANCE. PT REMINDED OF SYNCOPAL EVENT AND EDUCATED ON RISK OF FALLING AGAIN. PT RETURNED TO BED, SNEEZED AND INCONT PROTOCOL WAS APPLIED AGAIN. PT [place] WE[place]. AWARE OF PLAN TO TRANSFER TO PCU SOON BED IS ASSIGNED.
--- NOTE | 2019-07-02 20:18 | CT_ITS ---
HISTORY: DIZZINESS WITH SYNCOPE,NAUSEA AND VOMITING WHILE SHOPPING,PT DENIES INJURY,TAKES ASPIRIN AND PLAVIXHX:CVA IN FEBRUARY,HTN,HLD,DIABETES Technique:CT Head or Brain W/O Contrast Injection Number of Images including paperwork:235 Comparison: None available. Findings: CT images of the head were obtained without contrast. Periventricular deep and subcortical white matter disease is present. Paranasal sinuses are clear. The brain is atrophic. Calcific ASCVD involves intracranial arteries. No acute intracranial edema or hemorrhage. No acute abnormality of orbits. Middle ear cavities and mastoid air cells are well aerated. Skull is normal. CT/Brain/Head without Contrast IMPRESSION: No acute intracranial abnormality. Chronic changes as above. ASPECT 10. Individualized dose optimization techniques were used for this CT. at 2058 Reported and signed by: Abraham Woods MD Electronically Signed: Abraham Woods MD at 20:57 EDT Tel , Service support ,
[2019-07-02] MEDS: 0.9% Normal Saline 1,000 ML 100 ML IV (21:59)
[2019-07-02] MEDS: 0.9% Saline Lock 10 ML Syringe IV (22:02)
[2019-07-02] MEDS: Atorvastatin Calcium 80 MG Tablet PO (22:28)
[2019-07-02] MEDS: Magnesium Oxide 400 MG Tablet PO (22:28)
[2019-07-02] MEDS: Loperamide 2 MG Capsule PO (22:28)
[2019-07-02] MEDS: Cilostazol 50 MG Tablet 100 MG PO (22:28)
[2019-07-02] MEDS: Insulin Lispro 100 UNIT/ML INSULN.PEN SC (22:32)
[2019-07-02] MEDS: MELATONIN 3 MG TABLET PO (22:32)
[2019-07-02 23:01] LABS: Bedside Glucose 210 mg/dL (70-110)
[2019-07-03] VITALS (11 sets, daily range): BP systolic 64–106; BP diastolic 40–55; PULSE 86–98; RESP 16–18; TEMP 36.5–36.9; O2SAT 93–99; BMI 30.1
[2019-07-03 03:14] LABS: Absolute Lymphocyte Count 1.66 X10^3/uL (0.83-4.51); Absolute Neutrophil Count 4.9 X10^3/uL (2.0-7.7); Basophil# 0.03 X10^3/uL; Basophil% 0.4 % (0-1); Eosinophil# 0.16 X10^3/uL; Eosinophils% 2.1 % (0-5); Hematocrit 35.2 % (37-47); Hemoglobin 11.2 g/dL (12.0-15.0); Lymphocyte # 1.66 X10^3/ul (4.0); Lymphocyte % 22.2 % (19-41); Mean Corp Hgb Conc 31.8 g/dL (32-36); Mean Corpuscular Hgb 29.7 pg (27.0-32.0); Mean Corpuscular Volume 93.4 fL (81-99); Mean Platelet Vol. 11.3 fl (6.2-12.0); Monocyte# 0.71 X10^3/uL; Monocyte% 9.5 % (0-10); NRBC Flagged by Analyzer 0 % (0-5); Neutrophil % 65.5 % (47-70); Platelet Count 203 K/mm3 (150-450); RBC Distribution Width CV 13.8 % (11.6-14.6); RBC Distribution Width SD 46.8 fl (35.1-43.9); Red Blood Count 3.77 M/mm3 (4.2-5.4); White Blood Count 7.5 K/mm3 (4.4-11.0)
[2019-07-03 03:23] LABS: Anion Gap 6 (5-15); BUN 40 mg/dL (7-18); BUN/Creat Ratio 33.1 RATIO (10-20); Calcium,Total 8.1 mg/dL (8.5-10.1); Chloride 107 mmol/L (98-107); Creatinine, Serum 1.21 mg/dL (0.55-1.02); EST Glomerular Filtration Rate 48 mL/min (>60); Est Glom Filt Rate - Afr Amer 59 mL/min (>60); Estimated Creatinine Clearance 41.41 ml/min; Glucose 79 mg/dL (74-106); Magnesium 2.3 mg/dL (1.6-2.6); Potassium 3.6 mmol/L (3.5-5.1); Sodium Level 140 mmol/L (136-145)
--- NOTE | 2019-07-03 05:55 | EKG12_ITS ---
Test Reason : AM EKG Blood Pressure : / mmHG Vent. Rate : 089 BPM Atrial Rate : 089 BPM P-R Int : 146 ms QRS Dur : 114 ms QT Int : 384 ms P-R-T Axes : 058 061 127 degrees QTc Int : 467 ms Normal sinus rhythm Incomplete left bundle branch block ST & T wave abnormality, consider lateral ischemia Prolonged QT Abnormal ECG When compared with ECG of 02-JUL-2019 16:48, MANUAL COMPARISON REQUIRED, DATA IS UNCONFIRMED Confirmed by WALTER MENDEZ ([id number]), editorial manager ILEANA FLORES ([id number]) on 07/11/2019 10:36:53 AM Referred By: DR PURCELL Confirmed By:WALTER MENDEZ
--- NOTE | 2019-07-03 06:57 | PCM.PN.HOSP ---
Patient Problems: Active and Suspected Problems (Last Reviewed 05/15/19 @ 08:[address] Howie Bentley MD) Syncope (Acute) Dehydration (Acute) Elevated troponin (Acute) Hypotension (Acute) ADAN (acute kidney injury) (Acute) Subjective: Patient notes feeling improved since initial presentation with no recurrent lightheadedness, dizziness, nausea or emesis or near syncopal sensation. Significant orthostatic vital signs upon presentation and repeat this a.m. with additional IV fluids administered. Discussed current presentation with elevated indeterminate cardiac enzymes. Patient continues to deny any chest discomfort or dyspnea or pressure. Discussed that cardiology would be consulted and evaluate patient. Patient denies fevers, chills, nausea, emesis, abdominal pain, chest pain or dyspnea. Objective: Physical Examination: General: awake, alert, oriented x 3 and cooperative, seated upright in the PCU bed, improved. Skin: normal color, turgor, no icterus, cyanosis. HEENT: AT/NC, EOMI, PERRLA, MMM. Lungs: CTA bilaterally, moderate effort, mild decrease BL bases, no rales, ronchi or wheezing. Heart: Regular rate and rhythm; no gallop, rub audible. Abdomen: soft, obese, NTTP, ND, normal BS. Extremities: no cyanosis, clubbing, or edema. Neurological: patient awake, alert, oriented x 3; cognitive function appears baseline intact; pupils equally reactive to light and accomodation; cranial nerves II-XII grossly normal, moving all 4 extremities, no focal deficits, strength improved, mildly to moderately global decrease secondary to acute presentation. Psychiatric: affect appears improved, less fatigued, no acute evidence of depressive or anxiety feelings. Vitals/I&O's: Vital Signs Temp Pulse Resp BP Pulse Ox 98.4 F 92 18 82/55 L 96 07/03/19 03:05 07/03/19 06:33 07/03/19 03:05 07/03/19 06:33 07/03/19 03:05 Oxygen Delivery Method Room Air Weight: 170 lb 3.15 oz Body Mass Index (BMI) 30.1 Finger Stick Blood Glucose 434 Orthostatic Vital Signs Start: 07/02/19 21:10 Freq: 0600 Status: Active Protocol: Activity Type Activity Date Activity User E-Sign Co-Sign Detail Recorded Client Recorded Date Recorded By Document 07/03/19 06:33 JMP [id number] 07/03/19 06:39 [facility] 07/03/19 06:33 Orthostatic Vitals Standing -Blood Pressure (90/60-120/80 mm Hg) 64/40 L -Extremity Use Right Arm -Pulse Rate (60-100 beats/min) 98 Sitting -Blood Pressure (90/60-120/80 mm Hg) 72/42 L -Extremity Use Right Arm -Pulse Rate (60-100 beats/min) 94 Lying -Blood Pressure (90/60-120/80 mm Hg) 82/55 L -Extremity Use Right Arm -Pulse Rate (60-100 beats/min) 92 Intake and Output for Last 24 Hours 07/01/19 07/02/19 07/03/19 23:59 23:59 23:59 Intake Total 1611.4 / 1611.4 2.6 / 2.6 Output Total 600 / 600 Balance 1611.4 / 1611.4 -597.4 / -597.4 Laboratory Results 07/02/19 16:55: WBC 7.3, RBC 4.21, Hgb 12.5, Hct 39.1, MCV 92.9, MCH 29.7, MCHC 32.0, RDW Std Deviation 47.5 H, RDW Coeff of Jessica 14.0, Plt Count 244, MPV 11.5, Immature Gran % (Auto) 0.400, Neut % (Auto) 64.6, Lymph % (Auto) 24.5, [place] % (Auto) 8.1, Eos % (Auto) 2.0, Baso % (Auto) 0.4, Absolute Neuts (auto) 4.7, Absolute Lymphs (auto) 1.79, Nucleated RBC % 0 07/02/19 16:55: PT 12.0, INR 0.9, APTT 31.3 07/02/19 16:55: Sodium 136, Potassium 4.3, Chloride 102, Carbon Dioxide 24.0, Anion Gap 10, BUN 50 H, Creatinine 1.76 H, Estim Creat Clear Calc 28.47, Est GFR (MDRD) Af Amer 38 L, Est GFR (MDRD) Non-Af 31 L, BUN/Creatinine Ratio 28.4 H, Glucose 239 H, Calcium 9.2, Magnesium 1.5 L, Troponin I 0.075 H 04/22/20 21:22: Troponin I 0.117 H 07/02/19 22:25: POC Glucose 210 H 07/02/19 23:40: Troponin I 0.112 H 07/03/19 02:45: WBC 7.5, RBC 3.77 L, Hgb 11.2 L, Hct 35.2 L, MCV 93.4, MCH 29.7, MCHC 31.8 L, RDW Std Deviation 46.8 H, RDW Coeff of Jessica 13.8, Plt Count 203, MPV 11.3, Immature Gran % (Auto) 0.300, Neut % (Auto) 65.5, Lymph % (Auto) 22.2, [place] % (Auto) 9.5, Eos % (Auto) 2.1, Baso % (Auto) 0.4, Absolute Neuts (auto) 4.9, Absolute Lymphs (auto) 1.66, Nucleated RBC % 0 07/03/19 02:45: Sodium 140, Potassium 3.6, Chloride 107, Carbon Dioxide 27.0, Anion Gap 6, BUN 40 H, Creatinine 1.21 H, Estim Creat Clear Calc 41.41, Est GFR (MDRD) Af Amer 59 L, Est GFR (MDRD) Non-Af 48 L, BUN/Creatinine Ratio 33.1 H, Glucose 79, Calcium 8.1 L, Magnesium 2.3 07/03/19 02:45: Troponin I 0.128 H Current Medications Acetaminophen (Tylenol) 650 mg PO Q6H PRN PRN PRN Reason: Pain Score 1-10/Temp > 100.7 F Al Hydroxide/Mg Hydroxide (Mylanta Ii) 30 ml PO Q6H PRN PRN PRN Reason: Gastric Burning Albuterol Sulfate (Ventolin Aerosols) 2.5 mg INHALATION Q2H PRN PRN PRN Reason: Dyspnea, wheezing Aspirin (Ecotrin) 81 mg PO DAILY@0800 [facility] Atorvastatin Calcium (Lipitor) 80 mg PO QHS [facility] Last Admin: 07/02/19 22:28 Dose: 80 mg Documented by: Cilostazol (Pletal) 100 mg PO BID [facility] Last Admin: 07/02/19 22:28 Dose: 100 mg Documented by: Clopidogrel Bisulfate (Plavix) 75 mg PO DAILY [facility] Dextrose (D50w Syringe) 0 gm IV X1 PRN; Protocol PRN Reason: Hypoglycemia Glucagon () 1 mg IM .X1 PRN PRN Reason: Hypoglycemia Guaifenesin (Robitussin) 20 ml PO Q4H PRN PRN PRN Reason: COUGH Heparin Sodium (Porcine) (Heparin Na) 5,000 unit SC Q12 [facility] Hydralazine HCl (Apresoline Iv) 10 mg IV Q4H PRN PRN PRN Reason: SBP > 160 Sodium Chloride () 1,000 mls @ 100 mls/hr IV .Q10H [facility] Last Infusion: 07/03/19 00:02 Dose: 100 mls/hr Documented by: Sodium Chloride () 250 mls @ 15 mls/hr IV .[id number] PRN PRN Reason: Saline Flush Sodium Chloride () 250 mls @ 15 mls/hr IV .[id number] PRN PRN Reason: Additional IVPB Infusion Sodium Chloride () 500 mls @ 999 mls/hr IV .Q31M ONE Stop: 07/03/19 07:22 Insulin Glargine (Lantus (Bk)) 52 units SC BID [facility] Last Admin: 07/02/19 22:28 Dose: 52 u Documented by: Insulin Human Lispro (Humalog Kwikpen ([facility])) 0 unit SC ACHS [facility]; Protocol Last Admin: 07/02/19 22:32 Dose: 2 u Documented by: Loperamide HCl (Imodium) 2 mg PO BID [facility] Magnesium Oxide (Mag-Ox 400) 400 mg PO BID [facility] Last Admin: 07/02/19 22:28 Dose: 400 mg Documented by: Melatonin (Melatonin) 3 mg PO QHS PRN PRN PRN Reason: INSOMNIA Last Admin: 07/02/19 22:32 Dose: 3 mg Documented by: Morphine Sulfate () 2 mg IV Q3H PRN PRN PRN Reason: Pain Score 6-10/10 Nitroglycerin (Nitrostat) 0.4 mg SUBLINGUAL Q5M PRN PRN Reason: CARDIAC/CHEST PAIN Ondansetron HCl (Zofran) 4 mg IV Q8H PRN PRN PRN Reason: NAUSEA/VOMITING Oxycodone HCl (Oxyir) 5 mg PO Q4H PRN PRN PRN Reason: Pain Score 4-5/10 Pantoprazole Sodium (Protonix) 40 mg PO DAILY PRN PRN PRN Reason: GERD Prochlorperazine Edisylate (Compazine Iv) 5 mg IV Q4H PRN PRN PRN Reason: Breakthrough Nausea/Vomiting Sodium Chloride () 10 - 40 ml IV UD PRN PRN Reason: SALINE FLUSH Last Admin: 07/02/19 22:02 Dose: 10 ml Documented by: Throat Lozenges (Cepacol Sore Throat Lozenge) 1 lozenge MUCOUS MEM Q2H PRN PRN PRN Reason: SORE THROAT STROKE Vital Signs/Narrative: Vital Signs Temp Pulse Pulse Pulse Pulse Resp BP 07/03/19 06:33 92 94 98 07/03/19 03:05 98.4 F 90 18 95/48 L 07/03/19 03:00 92 BP BP BP Pulse Ox 07/03/19 06:33 82/55 L 72/42 L 64/40 L 07/03/19 03:05 96 07/03/19 03:00 Medical Necessity - Tobacco Use Smoking Status: Former smoker Tobacco Use: Non-smoker Assessment/Plan All Active Problems (Last Reviewed 05/15/19 @ 08:[address] Howie Bentley MD) Syncope (Acute) Dehydration (Acute) Elevated troponin (Acute) Hypotension (Acute) Cardiomyopathy (Acute) Prolonged QT interval (Acute) Incomplete left bundle branch block (Acute) Dysarthria (Acute) Altered mental status (Resolved) ADAN (acute kidney injury) (Acute) Abnormal EKG (Acute) The patient is a 58 y/o F w/ PMHx: CAD, PVD, Cardiomyopathy ( ECHO EF 30%), Hx CVA 02/2019, HTN, HLD, Abdominal aortic atenosis, Diabetes mellitus type II following w/ Dr. eBntley, Former Tobacco use who presents to the [facility] ED on 07/02/19 with history of being at [employer] attempting to shop with onset lightheadedness, dizziness in addition to nausea with emesis x1 with syncopal event with no associated chest pain, dyspnea, palpitations or racing heart at that time with no trauma upon fall. 1. Syncopal Event with hypotension, orthostasis and indeterminate cardiac enzyme: Patient syncope secondary to hypotension with acute kidney injury concurrently likely secondary to ongoing GI losses with loose stools and diarrhea in addition to hypertensive regimen. Work-up in the ED included T 98.2, heart rate 102 initially, BP 81/54 initially however decreasing to 70/60 while in the ED, respiratory rate 18, 96% on room air, CBC unremarkable, coags unremarkable, BMP with BUN/creatinine 50/1.76, glucose 239, magnesium 1.5, troponin 0.075, chest x-ray with no acute cardiopulmonary findings, EKG with sinus rhythm with ST depressions noted in 1 and aVL, T wave inversions in 1 and aVL. Admitted to the PCU, continued judicious hydration, serial cardiac enzymes w/ trend 0.075-->0.112-->0.0128, EKGs remained stable, maintained on fall precautions, CT head obtained without acute findings, as noted + orthostatic VS, Mag 1.5 with supplementation administered with repeat 2.3, Of note, recent carotid US 03/31 w/ mild (<50%) stenosis right extracranial internal carotid. Moderate (50-69%) stenosis left extracranial internal carotid, flow within the vertebral arteries is antegrade bilaterally thus will defer repeat. Cardiology consulted, pending. 2. Acute kidney injury: Secondary to diuretic therapy, poor intake, associate with acute presentation as noted. Admission BUN/Cr 50/1.76, prior baseline creatinine noted to be 0.6 previously, 07/03/19 repeat BUN/Cr 40/1.21, improving, continue to judiciously hydrate given cardiomyopathy with reduced EF, hold nephrotoxic medications and repeat chemistry in AM. 3. Chronic diarrhea: Ongoing, likely contributing to her acute presentation, maintained on antidiarrheal regimen, recent 05/03/19 enteric pathology. Will request O+A additionally. 4. CAD: 03/[address] Dyson with EF of 15 to 20%, 30% LAD, 50% left circumflex, there is total occlusion of mid right coronary with collaterals, will continue patient aspirin, Plavix, Pletal, holding Coreg and lisinopril given acute presentation with hypotension, continue statin therapy. 5. Cardiomyopathy, Unclear Type: CVA evaluation in 02/2019 echocardiogram obtained with at that time noted EF of 30%. Planned re-evaluation 10/2019 for possible AICD needs. 6. Hx CVA: Ischemic, will continue aspirin, Plavix, continue statin, continue diabetic regimen, holding hypertensive regimen. 7. PVD: Continue aspirin, Plavix, Pletal, following with Dr. Shannon outpatient, continue statin, diabetic regimen, holding hypertensive regimen. 8. Diabetes mellitus type II: Hold oral home regimen, continue home insulin regimen, ADA diet, accu checks w/ ISS. 9. Hyperlipidemia: Continue home statin regimen. 10. Former Tobacco use: Encouraged continued tobacco cessation. 11. DVT prophylaxis: SCDs, heparin. 12. CODE status: Full Code. Inpatient E&M: [id number] Subs Hosp L3
[2019-07-03 07:16] LABS: Bedside Glucose 87 mg/dL (70-110)
--- NOTE | 2019-07-03 08:12 | CPS ---
pt refused SMI
--- NOTE | 2019-07-03 10:30 | CASEMGMT ---
RN THERON Face to Face with patient for initial transition planning/care coordination assessment. RN CM introduced self and role at [facility]. Patient lying in bed, alert and oriented. Patient willing to participate in assessment and is able to answer all questions appropriately. Care providers, pharmacy, and demographics verified. Patient wishes to discharge home, denies need for home health at this time. Patient states she has no further needs or concerns at this time. CM to follow for discharge planning needs that may arise. PCP: Sussy Specialists: Kiel, cardiology Preferred Pharmacy:[facility] Insurance: [employer] Prescription Benefit: yes Living Will/HPOA: none LNOK: son Living Arrangements: Patient lives with son in multi-level apartment. Patient states she is independent at home and able to ambulate stairs. Transportation: self/son DME/HHC: Patient states she has glucometer at home. Patient denies need for additional DME. Patient denies previous HHC. Disposition Plan: Patient to discharge home with family support and follow-up plans in place. Fatou MCCALL, RN, CM
--- NOTE | 2019-07-03 10:51 | NT.THERAPY_ITS ---
Nutrition Therapy Report - History Nutrition Services has been consulted to:: Conduct nutrition education Current diet / nutrition support order:: 1800 calorie controlled, cardiac - Anthropometric Measurements Height:: 5 ft 3 in Weight:: 77.2 kg Body Mass Index (BMI):: 30.1 - Relevant Labs Relevant Labs:: RBC 3.77 M/mm3 (4.2-5.4) L 07/03/19 02:45 Hgb 11.2 g/dL (12.0-15.0) L 07/03/19 02:45 Hct 35.2 % (37-47) L 07/03/19 02:45 MCHC 31.8 g/dL (32-36) L 07/03/19 02:45 RDW Std Deviation 46.8 fl (35.1-43.9) H 07/03/19 02:45 BUN 40 mg/dL (7-18) H 07/03/19 02:45 Creatinine 1.21 mg/dL (0.55-1.02) H 07/03/19 02:45 Est GFR (MDRD) Af Amer 59 mL/min (>60) L 07/03/19 02:45 Est GFR (MDRD) Non-Af 48 mL/min (>60) L 07/03/19 02:45 BUN/Creatinine Ratio 33.1 RATIO (10-20) H 07/03/19 02:45 Glucose 239 mg/dL (74-106) H 07/02/19 16:55 Calcium 8.1 mg/dL (8.5-10.1) L 07/03/19 02:45 Magnesium 1.5 mg/dL (1.6-2.6) L 07/02/19 16:55 Troponin I 0.128 ng/mL (<0.045) H 07/03/19 02:45 - Assessment Food / Nutrition-Related History:: Pt describes current appetite as ok- eating normally [employer]ING [employer]. Tries to limit portion sizes at home, limits juice/pop intake, and does not solomon foods. Has recently switched from 2% to 1% milk. SMBG w/ a CGM- states BG yesterday AM was 58mg/dL but peaked to 315mg/dL prior to admission. Last A1C from 2018 suggests poor glycemic control. Pt reports chronic diarrhea since beginning of year- has had outpatient investigation of diarrhea w/ no etiology determined. Reports unintentional wt gain since 2018. UBW ~155# and CBW 170.2#. Denies changes in PO intake or physical activity that could attribute to wt gain. - Nutrition Diagnosis Evidence of Malnutrition Exists:: No - Nutrition Intervention Nutrition Prescription:: [id number] calories/day; 55-65 g protein/day - Food / Nutrient Delivery Interventions Summary of nutrition intervention:: Nutrition education provided. Pt states she was given a diet to follow by Dr. Bentley- however pt states it was too much food and struggled w/ eating 3x/day. Introduced pt to plate method. Encouraged 50% of plate to contain non-starchy vegetables, 25% starchy vegetables/grain/fruit/milk, and 25% protein. Pt very receptive to teaching. Was able to create appropriate hypothetical breakfast meals using information provided. Encouraged follow-up w/ outpatient [facility] for ongoing DM Self-Management Training. Nutrition support ordered as / adjusted to:: 1600 calorie controlled, cardiac. Nutrition education provided?: Yes - See interventions above. - MNT Monitoring MNT Follow-up in:: 3-5 days
[2019-07-03] MEDS: 0.9% Normal Saline 1,000 ML 100 ML IV ×2 (10:54→20:00)
[2019-07-03] MEDS: Aspirin E.C. 81 MG Tablet PO (10:59)
[2019-07-03] MEDS: Clopidogrel Bisulfate 75 MG Tablet PO (11:01)
[2019-07-03] MEDS: Cilostazol 50 MG Tablet 100 MG PO ×2 (11:01→22:10)
[2019-07-03] MEDS: Insulin Lispro 100 UNIT/ML INSULN.PEN SC ×2 (11:01→22:14)
[2019-07-03] MEDS: Magnesium Oxide 400 MG Tablet PO ×2 (11:01→22:11)
[2019-07-03 14:00] LABS: Bedside Glucose 235 mg/dL (70-110)
--- NOTE | 2019-07-03 14:38 | PCM.CONS.C ---
Reason for Consult Date of Consultation: 07/03/19 Reason for Consultation: Syncope History of Present Illness: The patient is a 58 y/o F w/ PMHx: CAD, PVD, Cardiomyopathy ( ECHO EF 30%), Hx CVA 02/2019, HTN, HLD, Abdominal aortic atenosis, Diabetes mellitus type II following w/ Dr. Bentley, Former Tobacco use who presents to the [facility] ED on 07/02/19 with history of being at [employer] attempting to shop with onset lightheadedness, dizziness with diaphoresis in addition to nausea with emesis x1 with syncopal event with no associated chest pain, dyspnea, palpitations or racing heart at that time with no trauma upon fall. She states that she has been having intermittent loose stools since March and followed up with her primary care physician with unremarkable stool studies performed in April. She does state that she had a similar event with lightheadedness and dizziness with nausea and emesis on Sunday as well but was able to rest and this improved. She notes that she has been having more of these types of events and she was placed on all these medications following her stroke in February and findings in March on her catheterization. Patient had been admitted in March and at that time had cardiac catheterization with nonobstructive disease but significant cardiomyopathy. Patient was found to have orthostatic hypotension. She was also found to have acute kidney injury which improved significantly with IV fluids. Telemetry did not reveal any significant arrhythmias so far. Review of systems: All systems reviewed. All else is negative except that in HPI Past Medical History Allergies/Adverse Reactions: Allergies No Known Allergies Allergy (Verified 04/22/19 13:25) Home Medications: Ambulatory Orders Medication Instructions Recorded Metformin HCl 1,000 mg PO BID 08/14/18 clopidogrel 75 mg tablet 75 mg PO DAILY #90 tab 03/25/19 Aspirin [Low Dose Aspirin EC] 81 mg PO DAILY@0800 07/02/19 Atorvastatin Calcium [Lipitor] 80 mg PO QHS 07/02/19 Carvedilol 12.5 mg PO BID 07/02/19 Cilostazol 100 mg PO BID 07/02/19 Dulaglutide [Trulicity] 1.5 mg PO SA 07/02/19 Furosemide [Lasix] 20 mg PO DAILY 07/02/19 Insulin Glargine,Hum.rec.anlog 52 unit SQ BID 07/02/19 [Basaglar Akosuanitadominic U-100] Lisinopril 20 mg PO DAILY 07/02/19 Magnesium Oxide 400 mg PO BID 07/02/19 Omeprazole Magnesium [Prilosec Otc] 40 mg PO DAILY PRN PRN 07/02/19 Past Medical History (Chronic Problems): Chronic Problems (Last Reviewed 05/15/19 @ 08:[address] Howie Bentley MD) Diarrhea (Chronic) Arteriosclerotic cardiovascular disease (Chronic) Occluded RCA with diffuse nonobstructive disease in other coronaries: see cath report 04/11/2019 History of left heart catheterization (Chronic 04/11/19) Global LV systolic dysfunction- Severe, EF 15-20%; Single vessel CAD of the RCA(occluded: tx medically). LV dysfunction is out of proportion to degree of CAD. LVEDP: 41 mmHg; LEFT MAIN: Mild luminal irregularities less than 30%, post ostial stenotic dilation., Mild calcification; LEFT ANTERIOR DESCENDING ARTERY: PROX LAD: Mild luminal irregularities less than 30%; CIRCUMFLEX ARTERY: PROX CIRC: Moderate luminal irregularities up to 50%; RIGHT CORONARY ARTERY: MID RCA: is occluded; COLLATERAL FLOW: Collateral flow from Left to Right; PERIPHERAL FINDINGS:Abdominal Aorta: mild descending aortic aneurysm. Diffuse distal aorta and bilateral iliac disease. If no improvement in LV function after maximal medical tx and cardiac rehab, pt will need AICD. F/u with Dr Shannon for PVD. Continue asa/plavix for life given PVD. CVA (cerebral vascular accident) (Chronic 03/08/19) Ischemic Left ventricular dysfunction (Chronic) Stenosis of infrarenal abdominal aorta due to atherosclerosis (Chronic) Severe stenosis per Abd Aortic/IVC Duplex scan done05/03/2018, read by Dr. Juma Shannon Carotid artery disease (Chronic) Calcified peribulbar hard plaque with approximately 40% diameter narrowing in right common carotid per neck CTA03/10/19 Peripheral vascular disease (Chronic) Per bilateral lower extremity study done 04/01/2018 @ [facility]; read by Dr. Darian Collazo Hyperlipidemia (Chronic) Type 2 diabetes mellitus (Chronic) HTN (hypertension) (Chronic) Surgical History: no surgical history Psychiatric History: No pertinent psych hx [employer] History: No pertinent [employer] history - *Family History Maternal History Items: Cancer, Diabetes, High Cholesterol, Heart Disease, Hypertension Paternal History Items: Cancer, Diabetes, High Cholesterol, Heart Disease, Hypertension Lives: Alone Smoking Status: Former smoker Tobacco Use: Non-smoker Alcohol: None Drugs: None Objective: Vital Signs Temp Pulse Resp BP Pulse Ox 97.7 F L 92 16 94/49 L 93 07/03/19 14:15 07/03/19 14:15 07/03/19 14:15 07/03/19 14:15 07/03/19 14:15 Oxygen Delivery Method Room Air Weight: 170 lb 3.15 oz Body Mass Index (BMI) 30.1 Finger Stick Blood Glucose 434 Orthostatic Vital Signs Start: 07/02/19 21:10 Freq: 0600 Status: Active Protocol: Activity Type Activity Date Activity User E-Sign Co-Sign Detail Recorded Client Recorded Date Recorded By Document 07/03/19 06:33 JULIA [id number] 07/03/19 06:39 JULIA 07/03/19 06:33 Orthostatic Vitals Standing -Blood Pressure (90/60-120/80) 64/40 L -Extremity Use Right Arm -Pulse Rate (60-100) 98 Sitting -Blood Pressure (90/60-120/80) 72/42 L -Extremity Use Right Arm -Pulse Rate (60-100) 94 Lying -Blood Pressure (90/60-120/80) 82/55 L -Extremity Use Right Arm -Pulse Rate (60-100) 92 Intake and Output for Last 24 Hours 07/01/19 07/02/19 07/03/19 23:59 23:59 23:59 Intake Total 1611.4 / 1611.4 1852.6 / 1852.6 Output Total 600 / 600 Balance 1611.4 / 1611.4 1252.6 / 1252.6 General: Awake, Alert, Oriented x 3 HEENT: Atraumatic Oral: Moist Mucosa Neck: Supple Lungs: Clear to auscultation Cardiovascular: Regular Rhythm Abdomen: Soft Skin: No Rashes Psych/Mental Status: Appropriate 07/02/19 16:55: WBC 7.3, RBC 4.21, Hgb 12.5, Hct 39.1, MCV 92.9, MCH 29.7, MCHC 32.0, Plt Count 244, MPV 11.5, Immature Gran % (Auto) 0.400, Neut % (Auto) 64.6, Lymph % (Auto) 24.5, [place] % (Auto) 8.1, Eos % (Auto) 2.0, Baso % (Auto) 0.4, Absolute Neuts (auto) 4.7, Nucleated RBC % 0 07/02/19 16:55: PT 12.0, INR 0.9, APTT 31.3 07/02/19 16:55: Sodium 136, Potassium 4.3, Chloride 102, Carbon Dioxide 24.0, Anion Gap 10, BUN 50 H, Creatinine 1.76 H, Est GFR (MDRD) Af Amer 38 L, Est GFR (MDRD) Non-Af 31 L, BUN/Creatinine Ratio 28.4 H, Glucose 239 H, Calcium 9.2, Magnesium 1.5 L, Troponin I 0.075 H 07/02/19 21:22: Troponin I 0.117 H 07/02/19 23:40: Troponin I 0.112 H 07/03/19 02:45: WBC 7.5, RBC 3.77 L, Hgb 11.2 L, Hct 35.2 L, MCV 93.4, MCH 29.7, MCHC 31.8 L, Plt Count 203, MPV 11.3, Immature Gran % (Auto) 0.300, Neut % (Auto) 65.5, Lymph % (Auto) 22.2, [place] % (Auto) 9.5, Eos % (Auto) 2.1, Baso % (Auto) 0.4, Absolute Neuts (auto) 4.9, Nucleated RBC % 0 07/03/19 02:45: Sodium 140, Potassium 3.6, Chloride 107, Carbon Dioxide 27.0, Anion Gap 6, BUN 40 H, Creatinine 1.21 H, Est GFR (MDRD) Af Amer 59 L, Est GFR (MDRD) Non-Af 48 L, BUN/Creatinine Ratio 33.1 H, Glucose 79, Calcium 8.1 L, Magnesium 2.3 07/03/19 02:45: Troponin I 0.128 H Rhythm: EKG: ECHO: Stress Test: Cardiac Cath: PCI: CT Surgery: Holter monitor: EPS: PPM: CXR: Chest CT Scan: Assessment/Plan 1. Syncope: Appears to be due to dehydration probably secondary to ongoing diarrhea in the setting of LV dysfunction and medications for that (Coreg, lisinopril). Agree with hydrating the patient and holding the Coreg and lisinopril at this time. When blood pressure improves please restart at a lower dose and we can titrate this up as an outpatient. 2. LV dysfunction: Patient appears to be compensated from a cardiac standpoint. Agree with holding the Coreg and lisinopril for now and restarting at a lower dose when patient is able to tolerate it. Continue telemetry monitoring while the patient is here. No evidence of significant arrhythmias so far.
[2019-07-03 18:35] LABS: Bedside Glucose 105 mg/dL (70-110)
[2019-07-03] MEDS: Atorvastatin Calcium 80 MG Tablet PO (22:11)
[2019-07-03 22:26] LABS: Bedside Glucose 210 mg/dL (70-110)
[2019-07-04 03:00] VITALS: PULSE 82
[2019-07-04 03:31] VITALS: BP 95/45; PULSE 88; RESP 18; TEMP 36.4; O2SAT 94
[2019-07-04 06:00] VITALS: BP 134/58; BP 138/64; BP 142/65; PULSE 82; PULSE 83; PULSE 85
[2019-07-04 06:22] LABS: Absolute Lymphocyte Count 1.23 X10^3/uL (0.83-4.51); Absolute Neutrophil Count 4.8 X10^3/uL (2.0-7.7); Basophil# 0.05 X10^3/uL; Basophil% 0.7 % (0-1); Eosinophil# 0.16 X10^3/uL; Eosinophils% 2.3 % (0-5); Hematocrit 35.8 % (37-47); Hemoglobin 11.2 g/dL (12.0-15.0); Lymphocyte # 1.23 X10^3/ul (4.0); Mean Corp Hgb Conc 31.3 g/dL (32-36); Mean Corpuscular Hgb 29.7 pg (27.0-32.0); Mean Platelet Vol. 11.8 fl (6.2-12.0); Monocyte# 0.58 X10^3/uL; Monocyte% 8.5 % (0-10); NRBC Flagged by Analyzer 0 % (0-5); Neutrophil # 4.81 X10^3/uL (2.7-7.7); Neutrophil % 70.4 % (47-70); Platelet Count 186 K/mm3 (150-450); RBC Distribution Width CV 13.7 % (11.6-14.6); RBC Distribution Width SD 47.2 fl (35.1-43.9); Red Blood Count 3.77 M/mm3 (4.2-5.4); White Blood Count 6.8 K/mm3 (4.4-11.0)
[2019-07-04] MEDS: 0.9% Normal Saline 1,000 ML 100 ML IV (06:29)
[2019-07-04 06:46] LABS: Anion Gap 5 (5-15); BUN 17 mg/dL (7-18); Chloride 115 mmol/L (98-107); Creatinine, Serum 0.85 mg/dL (0.55-1.02); EST Glomerular Filtration Rate 73 mL/min (>60); Est Glom Filt Rate - Afr Amer 88 mL/min (>60); Estimated Creatinine Clearance 58.95 ml/min; Glucose 53 mg/dL (74-106); Potassium 3.8 mmol/L (3.5-5.1); Sodium Level 145 mmol/L (136-145)
[2019-07-04 07:16] LABS: Bedside Glucose 92 mg/dL (70-110)
[2019-07-04 07:22] VITALS: PULSE 85
[2019-07-04 07:24] VITALS: O2SAT 92
--- NOTE | 2019-07-04 08:26 | PCM.DC ---
- Discharge Diagnoses Current Active Problems: Current Active and Chronic Problems (Last Reviewed 05/15/19 @ 08:[address] Howie Bentley MD) 1. Syncopal Event with hypotension, orthostasis and indeterminate cardiac enzyme 2. Acute kidney injury, Secondary to diuretic therapy, GI losses 3. Chronic diarrhea 4. CAD 5. Cardiomyopathy, Unclear Type 6. Hx CVA 7. PVD 8. Diabetes mellitus type II 9. Hyperlipidemia 10. Former Tobacco use You will use the following diet at home:: Calorie/Carbohydrate Controlled (specify 1200, 1400, etc), Cardiac Your food should be the consistency of: Regular Your liquids should be the consistency of: Regular/Thin Discharge Activity: - - Please continue routine activity but monitor yourself for recurrent symptoms including lightheadedness, dizziness. May resume sexual activity in: No Restrictions Weight Bearing Status: Weight bearing as tolerated Call your doctor if you observe: Fever of 101 or Higher, Inability to urinate, Inability to have a bowel movement, Shortness of breath, Dizziness, Fainting spells, Chest pain, Uncontrolled pain Instructions: What Is Syncope?, Causes of Syncope, Treating Syncope: Prevention, ED Hypotension Orthostatic Additional Instructions: DISCHARGE INSTRUCTIONS: (1) During the admission given severity of orthostatic hypotension and frequent syncopal events your blood pressure medications have temporarily been held. (2) Please follow-up with Dr. Dyson office, may see INSULATOR TESTER with repeat blood pressure check following discharge to ascertain possibility of restarting some of these medications at a lower dose. (3) Please follow-up with your primary care physician and consider ova and parasite testing given ongoing diarrhea and consideration if this is negative for outpatient colonoscopy. Allergies/Adverse Reactions: Allergies No Known Allergies Allergy (Verified 04/22/19 13:25) Medications to take at Discharge Metformin HCl 1,000 mg PO BID 08/14/18 clopidogrel 75 mg tablet 75 mg PO DAILY #90 tab 03/25/19 Aspirin [Low Dose Aspirin EC] 81 mg PO DAILY@0800 07/02/19 Atorvastatin Calcium [Lipitor] 80 mg PO QHS 07/02/19 Cilostazol 100 mg PO BID 07/02/19 Dulaglutide [Trulicity] 1.5 mg PO SA 07/02/19 Insulin Glargine,Hum.rec.anlog [Basaglar Kwikpen U-100] 52 unit SQ BID 07/02/19 Magnesium Oxide 400 mg PO BID 07/02/19 Omeprazole Magnesium [Prilosec Otc] 40 mg PO DAILY PRN PRN 07/02/19 Primary Care Physician: Tristan Quiroz MD [STAFF PHYSICIAN] - Please follow up with your Primary Care Physician in: Follow-up within 3-5 days to review admission. Test Results: Test results from this visit will be discussed in further detail at your follow-up appointment, if applicable. Please Follow Up With: Chapo Dyson MD When: May see office INSULATOR TESTER also, follow-up within 3-5 days. Proposed Discharge Date: 07/04/19
--- NOTE | 2019-07-04 08:31 | DS.PCM_ITS ---
Discharge Date and Diagnosis - Problem List Patient Problems: Active and Suspected Problems (Last Reviewed 05/15/19 @ 08:[address] Howie Bentley MD) Syncope (Acute) Dehydration (Acute) Elevated troponin (Acute) Hypotension (Acute) ADAN (acute kidney injury) (Acute) Date of Admission: 07/02/19 Date of Discharge: 07/04/19 - Primary Discharge Diagnosis Active and Suspected Problems (Last Reviewed 05/15/19 @ 08:[address] Howie Bentley MD) 1. Syncopal Event with hypotension, orthostasis and indeterminate cardiac enzyme 2. Acute kidney injury, Secondary to diuretic therapy, GI losses 3. Chronic diarrhea 4. CAD 5. Cardiomyopathy, Unclear Type 6. Hx CVA 7. PVD 8. Diabetes mellitus type II 9. Hyperlipidemia 10. Former Tobacco use - Secondary Discharge Diagnosis Chronic Problems (Last Reviewed 05/15/19 @ 08:[address] Howie Bentley MD) Diarrhea (Chronic) Arteriosclerotic cardiovascular disease (Chronic) Occluded RCA with diffuse nonobstructive disease in other coronaries: see cath report 04/11/2019 History of left heart catheterization (Chronic 04/11/19) Global LV systolic dysfunction- Severe, EF 15-20%; Single vessel CAD of the RCA(occluded: tx medically). LV dysfunction is out of proportion to degree of CAD. LVEDP: 41 mmHg; LEFT MAIN: Mild luminal irregularities less than 30%, post ostial stenotic dilation., Mild calcification; LEFT ANTERIOR DESCENDING ARTERY: PROX LAD: Mild luminal irregularities less than 30%; CIRCUMFLEX ARTERY: PROX CIRC: Moderate luminal irregularities up to 50%; RIGHT CORONARY ARTERY: MID RCA: is occluded; COLLATERAL FLOW: Collateral flow from Left to Right; PERIPHERAL FINDINGS:Abdominal Aorta: mild descending aortic aneurysm. Diffuse distal aorta and bilateral iliac disease. If no improvement in LV function after maximal medical tx and cardiac rehab, pt will need AICD. F/u with Dr Shannon for PVD. Continue asa/plavix for life given PVD. CVA (cerebral vascular accident) (Chronic 03/08/19) Ischemic Left ventricular dysfunction (Chronic) Stenosis of infrarenal abdominal aorta due to atherosclerosis (Chronic) Severe stenosis per Abd Aortic/IVC Duplex scan done05/03/2018, read by Dr. Juma Shannon Carotid artery disease (Chronic) Calcified peribulbar hard plaque with approximately 40% diameter narrowing in right common carotid per neck CTA03/10/19 Peripheral vascular disease (Chronic) Per bilateral lower extremity study done 04/01/2018 @ [facility]; read by Dr. Darian Collazo Hyperlipidemia (Chronic) Type 2 diabetes mellitus (Chronic) HTN (hypertension) (Chronic) Hospital Course and Treatment Dr. Sanchez Cardiology Operations: None Procedures: EKG Summary of Care Provided: The patient is a 58 y/o F w/ PMHx: CAD, PVD, Cardiomyopathy ( ECHO EF 30%), Hx CVA 02/2019, HTN, HLD, Abdominal aortic atenosis, Diabetes mellitus type II following w/ Dr. Bentley, Former Tobacco use who presented to the [facility] ED on 07/02/19 with history of being at [employer] attempting to shop with onset lightheadedness, dizziness in addition to nausea with emesis x1 with syncopal event with no associated chest pain, dyspnea, palpitations or racing heart at that time with no trauma upon fall. Patient syncope secondary to hypotension with acute kidney injury concurrently likely secondary to ongoing GI losses with loose stools and diarrhea in addition to hypertensive regimen. Work-up in the ED included T 98.2, heart rate 102 initially, BP 81/54 initially however decreasing to 70/60 while in the ED, respiratory rate 18, 96% on room air, CBC unr emarkable, coags unremarkable, BMP with BUN/creatinine 50/1.76, glucose 239, magnesium 1.5, troponin 0.075, chest x-ray with no acute cardiopulmonary findings, EKG with sinus rhythm with ST depressions noted in 1 and aVL, T wave inversions in 1 and aVL. Admitted to the PCU, continued judicious hydration, serial cardiac enzymes w/ trend 0.075-->0.112-->0.0128, EKGs remained stable, maintained on fall precautions, CT head obtained without acute findings, as noted + orthostatic VS, recurrent 07/03/19 but resolved 07/04/19 with improved BPs, Mag 1.5 with supplementation administered with repeat 2.3, Of note, recent carotid US 03/31 w/ mild (<50%) stenosis right extracranial internal carotid. Moderate (50-69%) stenosis left extracranial internal carotid, flow within the vertebral arteries is antegrade bilaterally thus will defer repeat. Patient with as noted concurrent ADAN, secondary to diuretic therapy, poor intake, associate with acute presentation as noted. Admission BUN/Cr 50/1.76, prior baseline creatinine noted to be 0.6 previously, 07/03/19 repeat BUN/Cr 40/1.21-->07/04/19 BUN/Cr 17/0.85, resolved. Attempted to obtain stool for O+P; however, improved with her antidiarrheal regimen which she notes having also continued to take at home but from discussions may not be taking it as frequently as she could. Given clinical improvement, per discussion with cardiology will plan discharge off patient hypertensive regimen with improvement of blood pressure with reassessment early outpatient for re-addition of her agents possibly at a lower dose. DAY OF DISCHARGE PROGRESS NOTE: Subjective: Patient without acute event overnight per self and nursing report. Patient denies fever, chills, nausea, emesis, abdominal pain, chest pain or dyspnea. Patient denies any recurrent dizziness, lightheadedness, nausea or emesis or syncopal events. Patient agreeable to discharge to home and rather eager for discharge given feeling improved. Patient will be discharged with follow-up with primary care physician within 3-5 days in addition to cardiology with potential for DIRECTOR METABOLISM evaluation to assure blood pressures continue to improve and reassessment for possible restart at lower dose. Objective: T 97.6, heart rate 83, BP 106/47, respiratory rate 18, 99% on room air. Physical Examination: General: awake, alert, oriented x 3 and cooperative, seated upright in the bed, NAD. Skin: normal color, turgor, no icterus, cyanosis. HEENT: AT/NC, EOMI, PERRLA, MMM. Lungs: CTA bilaterally, moderate effort, mild decrease BL bases, no rales, ronchi or wheezing; Heart: Regular rate and rhythm; no gallop, rub audible. Abdomen: soft, NTTP, ND, normal BS. Extremities: no cyanosis, clubbing, or edema. Neurological: patient awake, alert, oriented x 3; cognitive function appears intact upon questioning,; pupils equally reactive to light and accomodation; cranial nerves II-XII grossly normal, moving all 4 extremities, strength improved, mildly globally decreased. Psychiatric: affect appears less fatigued, no acute evidence of depressive or anxiety feelings. Assessment and Plan: Please see hospital summary above. Patient Problems: Active and Suspected Problems (Last Reviewed 05/15/19 @ 08:[address] Howie Bentley MD) Syncope (Acute) Dehydration (Acute) Elevated troponin (Acute) Hypotension (Acute) ADAN (acute kidney injury) (Acute) - Physical Exam Vitals/I&O's: Vital Signs Temp Pulse Resp BP Pulse Ox 97.6 F L 83 18 142/65 H 92 07/04/19 03:31 07/04/19 06:00 07/04/19 03:31 07/04/19 06:00 07/04/19 07:24 Oxygen Delivery Method Room Air Weight: 173 lb 1.006 oz Body Mass Index (BMI) 30.1 Finger Stick Blood Glucose 434 Orthostatic Vital Signs Start: 07/02/19 21:10 Freq: 0600 Status: Active Protocol: Activity Type Activity Date Activity User E-Sign Co-Sign Detail Recorded Client Recorded Date Recorded By Document 07/04/19 06:00 GLC [id number] 07/04/19 07:34 GLC 07/04/19 06:00 Orthostatic Vitals Standing -Blood Pressure (90/60-120/80 mm Hg) 138/64 H -Extremity Use Right Arm -Pulse Rate (60-100 beats/min) 85 Sitting -Blood Pressure (90/60-120/80 mm Hg) 134/58 H -Extremity Use Right Arm -Pulse Rate (60-100 beats/min) 82 Lying -Blood Pressure (90/60-120/80 mm Hg) 142/65 H -Extremity Use Right Arm -Pulse Rate (60-100 beats/min) 83 Intake and Output for Last 24 Hours 07/02/19 07/03/19 07/04/19 23:59 23:59 23:59 Intake Total 1611.4 / 1611.4 3642.6 / 4242.6 2200 / 2200 Output Total 600 / 600 400 / 400 Balance 1611.4 / 1611.4 3042.6 / 3642.6 1800 / 1800 Laboratory Results 07/03/19 10:58: POC Glucose 235 H 07/03/19 17:25: POC Glucose 105 07/03/19 22:08: POC Glucose 210 H 07/04/19 05:32: WBC 6.8, RBC 3.77 L, Hgb 11.2 L, Hct 35.8 L, MCV 95.0, MCH 29.7, MCHC 31.3 L, RDW Std Deviation 47.2 H, RDW Coeff of Jessica 13.7, Plt Count 186, MPV 11.8, Immature Gran % (Auto) 0.100, Neut % (Auto) 70.4 H, Lymph % (Auto) 18.0 L, [place] % (Auto) 8.5, Eos % (Auto) 2.3, Baso % (Auto) 0.7, Absolute Neuts (auto) 4.8, Absolute Lymphs (auto) 1.23, Nucleated RBC % 0 07/04/19 05:32: Sodium 145, Potassium 3.8, Chloride 115 H, Carbon Dioxide 25.0, Anion Gap 5, BUN 17, Creatinine 0.85, Estim Creat Clear Calc 58.95, Est GFR (MDRD) Af Amer 88, Est GFR (MDRD) Non-Af 73, BUN/Creatinine Ratio 20.0, Glucose 53 L, Calcium 8.0 L 07/04/19 07:10: POC Glucose 92 Current Medications Acetaminophen (Tylenol) 650 mg PO Q6H PRN PRN PRN Reason: Pain Score 1-10/Temp > 100.7 F Al Hydroxide/Mg Hydroxide (Mylanta Ii) 30 ml PO Q6H PRN PRN PRN Reason: Gastric Burning Albuterol Sulfate (Ventolin Aerosols) 2.5 mg INHALATION Q2H PRN PRN PRN Reason: Dyspnea, wheezing Aspirin (Ecotrin) 81 mg PO DAILY@0800 [facility] Last Admin: 07/03/19 10:59 Dose: 81 mg Documented by: Atorvastatin Calcium (Lipitor) 80 mg PO QHS [facility] Last Admin: 07/03/19 22:11 Dose: 80 mg Documented by: Cilostazol (Pletal) 100 mg PO BID [facility] Last Admin: 07/03/19 22:10 Dose: 100 mg Documented by: Clopidogrel Bisulfate (Plavix) 75 mg PO DAILY [facility] Last Admin: 07/03/19 11:01 Dose: 75 mg Documented by: Dextrose (D50w Syringe) 0 gm IV X1 PRN; Protocol PRN Reason: Hypoglycemia Glucagon () 1 mg IM .X1 PRN PRN Reason: Hypoglycemia Guaifenesin (Robitussin) 20 ml PO Q4H PRN PRN PRN Reason: COUGH Heparin Sodium (Porcine) (Heparin Na) 5,000 unit SC Q12 [facility] Hydralazine HCl (Apresoline Iv) 10 mg IV Q4H PRN PRN PRN Reason: SBP > 160 Sodium Chloride () 1,000 mls @ 100 mls/hr IV .Q10H [facility] Last Admin: 07/04/19 06:29 Dose: 100 mls/hr Documented by: Sodium Chloride () 250 mls @ 15 mls/hr IV .[id number] PRN PRN Reason: Saline Flush Sodium Chloride () 250 mls @ 15 mls/hr IV .[id number] PRN PRN Reason: Additional IVPB Infusion Insulin Glargine (Lantus ([facility])) 52 units SC BID [facility] Last Admin: 07/03/19 22:11 Dose: 52 u Documented by: Insulin Human Lispro (Humalog Kwikpen ([facility])) 0 unit SC ACHS [facility]; Protocol Last Admin: 07/04/19 07:41 Dose: Not Given Documented by: Loperamide HCl (Imodium) 2 mg PO BID [facility] Last Admin: 07/03/19 22:11 Dose: Not Given Documented by: Magnesium Oxide (Mag-Ox 400) 400 mg PO BID [facility] Last Admin: 07/03/19 22:11 Dose: 400 mg Documented by: Melatonin (Melatonin) 3 mg PO QHS PRN PRN PRN Reason: INSOMNIA Last Admin: 07/02/19 22:32 Dose: 3 mg Documented by: Morphine Sulfate () 2 mg IV Q3H PRN PRN PRN Reason: Pain Score 6-10/10 Nitroglycerin (Nitrostat) 0.4 mg SUBLINGUAL Q5M PRN PRN Reason: CARDIAC/CHEST PAIN Ondansetron HCl (Zofran) 4 mg IV Q8H PRN PRN PRN Reason: NAUSEA/VOMITING Oxycodone HCl (Oxyir) 5 mg PO Q4H PRN PRN PRN Reason: Pain Score 4-5/10 Pantoprazole Sodium (Protonix) 40 mg PO DAILY PRN PRN PRN Reason: GERD Prochlorperazine Edisylate (Compazine Iv) 5 mg IV Q4H PRN PRN PRN Reason: Breakthrough Nausea/Vomiting Sodium Chloride () 10 - 40 ml IV UD PRN PRN Reason: SALINE FLUSH Last Admin: 07/02/19 22:02 Dose: 10 ml Documented by: Throat Lozenges (Cepacol Sore Throat Lozenge) 1 lozenge MUCOUS MEM Q2H PRN PRN PRN Reason: SORE THROAT Discharge Activity: - - Please continue routine activity but monitor yourself for recurrent symptoms including lightheadedness, dizziness. May resume sexual activity in: No Restrictions Weight Bearing Status: Weight bearing as tolerated Call your doctor if you observe: Fever of 101 or Higher, Inability to urinate, Inability to have a bowel movement, Shortness of breath, Dizziness, Fainting spells, Chest pain, Uncontrolled pain Home Medications: Medications to take at Discharge Metformin HCl 1,000 mg PO BID 08/14/18 clopidogrel 75 mg tablet 75 mg PO DAILY #90 tab 03/25/19 Aspirin [Low Dose Aspirin EC] 81 mg PO DAILY@0800 07/02/19 Atorvastatin Calcium [Lipitor] 80 mg PO QHS 07/02/19 Cilostazol 100 mg PO BID 07/02/19 Dulaglutide [Trulicity] 1.5 mg PO SA 07/02/19 Insulin Glargine,Hum.rec.anlog [Basaglar Kwikpen U-100] 52 unit SQ BID 07/02/19 Magnesium Oxide 400 mg PO BID 07/02/19 Omeprazole Magnesium [Prilosec Otc] 40 mg PO DAILY PRN PRN 07/02/19 Primary Care Physician: Tristan Quiroz MD [STAFF PHYSICIAN] - Please follow up with your Primary Care Physician in: Follow-up within 3-5 days to review admission. Please Follow Up With: Chapo Dyson MD When: May see office DIRECTOR METABOLISM also, follow-up within 3-5 days. Patient Instructions: What Is Syncope?, Causes of Syncope, Treating Syncope: Prevention, ED Hypotension Orthostatic Disposition: Home Minutes spent on discharge:: 35 Patient Condition:: Fair Medical Necessity - Tobacco Use Smoking Status: Former smoker Tobacco Use: Non-smoker Meaningful Use Info Meaningful Use Diagnoses (Choose all that apply): None applicable Inpatient E&M: 06515 Disch Hosp
--- NOTE | 2019-07-04 09:06 | NURSING ---
patient wanted nurse to call pharmacy and hold filling of medications stopped by md. [facility]
[2019-07-04] MEDS: Magnesium Oxide 400 MG Tablet PO (09:22)
[2019-07-04] MEDS: Aspirin E.C. 81 MG Tablet PO (09:22)
[2019-07-04] MEDS: Clopidogrel Bisulfate 75 MG Tablet PO (09:23)
[2019-07-04] MEDS: Cilostazol 50 MG Tablet 100 MG PO (09:23)
== END 2019-07-04 09:44 | disposition home or self-care (01) | DRG 641 ==
LOC: ED 18:38 → PCU 18:59
PROVIDERS: Admitting Provider Family Medicine; Emergency Provider Emergency Medicine; PCP Family Medicine; Visit Provider Family Medicine
DX: E86.0 Dehydration (principal); N17.9 Acute kidney failure, unspecified; I42.9 Cardiomyopathy, unspecified; I95.1 Orthostatic hypotension; I25.10 Atherosclerotic heart disease of native coronary artery without angina pectoris; E11.51 Type 2 diabetes mellitus with diabetic peripheral angiopathy without gangrene; E78.2 Mixed hyperlipidemia; I10 Essential (primary) hypertension; E11.65 Type 2 diabetes mellitus with hyperglycemia; Z87.891 Personal history of nicotine dependence; I44.7 Left bundle-branch block, unspecified; T50.2X5A Adverse effect of carbonic-anhydrase inhibitors, benzothiadiazides and other diuretics, initial encounter; K52.9 Noninfective gastroenteritis and colitis, unspecified; I25.82 Chronic total occlusion of coronary artery
CPT/HCPCS: 36415; 70450; 71045; 80048; 82962; 83735; 84484; 85025; 85610; 85730; 87177; 87209; 93005; 96360; 97802; 99285; J7030; J7040; A4216

== ENCOUNTER 2019-07-04 18:43 | Emergency (ER) | payer OTHER, SELFPAY ==
[2019-07-03 10:55] VITALS: BMI 30.1
--- NOTE | 2019-07-04 18:52 | CPS ---
i-gel used by cat hooker before arrival
[2019-07-04 19:07] VITALS: BP 0/0; TEMP -17.7; TEMP 0
--- NOTE | 2019-07-04 19:25 | CM.ED ---
SOCIAL WORK PATIENT . PATIENT'S CHILDREN ARRIVED TO EMERGENCY DEPARTMENT. EMOTIONAL SUPPORT PROVIDED THROUGHOUT. Makayla PRIETO MSW, PACKAGING MANAGER.
--- NOTE | 2019-07-04 19:42 | ED.RN ---
400 ML 0.9 NS GIVEN DURING CODE
--- NOTE | 2019-07-04 22:16 | ED.DCSUM_ITS ---
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 Reportedly the patient was discharged from the hospital today after being admitted for syncope. EMS informs me 911 call was placed for shortness of breath. Upon their arrival the patient was in PEA with some agonal respirations. A right tibial IO was placed and she received several rounds of epinephrine. Patient had a I gel placed with bagged respirations and auto pulse compressions were initiated. Upon arrival in the emergency department the patient is still in PEA. Past Medical History - Allergies and Home Meds Allergies/Adverse Reactions: Allergies No Known Allergies Allergy (Verified 04/22/19 13:25) Primary Care Physician: Darwin Hi MD [Primary Care Provider] - Surgical History: no surgical history Smoking Status: Former smoker - Family History Maternal Family History: Reports: Cancer, Diabetes, High Cholesterol, Heart Disease, Hypertension Paternal Family History: Reports: Cancer, Diabetes, High Cholesterol, Heart Disease, Hypertension Review of Systems ROS: Unable to Obtain Physical Exam Vital Signs/Narrative: Vital Signs Temp BP 07/04/19 19:07 0 F L 0/0 L Inital Vital Signs reviewed: Yes General: Well nourished, Well developed, Obese Eyes: - - Pupils are fixed and dilated ENT: - - There is an I gel in the airway with bagged respirations. Cardiovascular: - - There is no pulse no cardiac activity on monitor are not bedside ultrasound Respiratory: - - Rhonchorous lung sounds bilaterally Abdomen: Soft Skin: - - Patient is mottled cold to the touch no capillary refill Neurological: - - Patient is unresponsive Diagnostic/Tx/Re-eval - Medical Decision Making A viral filter was attached to the eye gel. COVID precautions undertaken. Several additional rounds of epinephrine were given. No pulse was able to be obtained. There is no cardiac motion on bedside ultrasound. Patient has a downtime of approximately 45 minutes and was pronounced . 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 - Critical Care Time Critical care time (excluding procedures): 30-74 minutes, Discussing w/Patient &/or Family/Produce Department Manager, Performing Direct Patient Care at Bedside - 35 min ED Disposition - Plan for ED Patient: Disposition: Diagnosis: PEA (Pulseless electrical activity), Referrals: Darwin Hi MD [Primary Care Provider] -
== END 2019-07-04 21:26 ==
PROVIDERS: Emergency Provider Emergency Medicine; PCP Family Medicine
DX: I46.9 Cardiac arrest, cause unspecified (principal); E66.9 Obesity, unspecified; Z87.891 Personal history of nicotine dependence
CPT/HCPCS: 92950; 99282; J7030; A4216